=== PATIENT | male | born 1955 | race Caucasian/White ===

== ENCOUNTER → 2020-11-30 16:18 | Outpatient (BNVA) | payer OTHER, SELFPAY | PROVIDERS: PCP Family Medicine; Visit Provider Emergency Medicine | DX: Z20.828 Contact with and (suspected) exposure to other viral communicable diseases (principal) | CPT/HCPCS: 87635 ==

== ENCOUNTER 2021-12-30 18:47 | Emergency (ER) | payer OTHER, MEDICARE, SELFPAY ==
[2021-12-30 18:56] VITALS: BP 164/90; PULSE 83; RESP 16; TEMP 36.8; O2SAT 99; BMI 27.3
--- NOTE | 2021-12-30 19:11 | CTR_ITS ---
PROCEDURE INFORMATION: Exam: CT Head Without Contrast Exam date and time: 12/30/2021 7:11 PM Age: 66 years old Clinical indication: Dizziness; Additional info: Dizzy, gait disturbance TECHNIQUE: Imaging protocol: Computed tomography of the head without contrast. Radiation optimization: All CT scans at this facility use at least one of these dose optimization techniques: automated exposure control; mA and/or kV adjustment per patient size (includes targeted exams where dose is matched to clinical indication); or iterative reconstruction. COMPARISON: No relevant prior studies available. RADIATION DOSE METRICS: Total DLP (mGy-cm): 949.46 FINDINGS: Brain: No hemorrhage. Moderate diffuse cerebral atrophy and sequela of chronic small vessel ischemic disease. No mass effect. Cerebral ventricles: No ventriculomegaly. Paranasal sinuses: Visualized sinuses are unremarkable. No fluid levels. Mastoid air cells: Visualized mastoid air cells are well aerated. Bones/joints: Unremarkable. No acute fracture. Soft tissues: Unremarkable. CT/CT head wo con* [id number] IMPRESSION: No acute intracranial abnormality. Moderate diffuse cerebral atrophy and sequela of chronic small vessel ischemic disease.
[2021-12-30 20:18] LABS: Basophils % 0.5 %; Eosinophils # 0.1 10^3/uL (0.0-0.8); Eosinophils % 0.7 %; Hematocrit 48.7 % (42.0-52.0); Hemoglobin 16.1 g/dL (11.7-16.6); Lymphocytes # 1.4 10^3/uL (0.8-4.8); Lymphocytes % 16.7 %; Mean Corpuscular HGB Conc 33.1 g/dL (30.0-36.0); Mean Corpuscular Hemoglobin 30.5 pg (28.0-34.0); Mean Corpuscular Volume 92.2 fl (80-94); Mean Platelet Volume 9.3 fL (7.4-10.4); Monocytes # 0.9 10^3/uL (0.2-0.9); Neutrophils # 6.06 10^3/uL (1.8-7.7); Neutrophils % 71.4 %; Nucleated Red Blood Cells % 0 %; Platelet Count 205 10^3/cmm (130-400); Red Blood Count 5.28 10^6/uL (4.1-5.3); Red Cell Distribution Width 13.2 % (12.1-15.1); White Blood Count 8.5 10^3/uL (4.0-10.0)
--- NOTE | 2021-12-30 20:36 | W.ED.DIZZY ---
HPI - Dizziness General: Chief Complaint: Dizziness Stated Complaint: Blood Presure High\Staggering Time Seen by Provider: 12/30/21 20:36 History of Present Illness: HPI Narrative: Mr. Saucedo is a 66-year-old gentleman with significant past is a 66-year-old male with history of Crohn's and history of lung cancer status post completed therapy who presents emergency department due to gait disturbance. He endorses 2 to 3 months of noticing difficulty with balance and walking. He finds it difficult to make turns and feels like sometimes he is going to fall backwards if he does not stand leaning a little bit back while walking. He denies associated headache, dizziness, lightheadedness, or focal weakness. He at times notices challenges with speech and challenges making words properly pronounced. Overall since onset symptoms have largely been constant though worsening in intensity. He apparently had an MRI done at [facility] in [place] recently for cancer surveillance however was told that this is normal. He has noticed a tremor. He notices difficulty writing however text is not smaller than normal. No other specific changes in health, exacerbating, relieving factors identified. Onset (ago): month(s) Timing: constant Severity: moderate History of similar symptoms: No Review of Systems General: Reports: 10 or more systems reviewed and unremarkable except in HPI and below PFSH ED PFSH: Medical History History of Crohn's disease History of lung cancer Social History Smoking and tobacco status: former smoker Alcohol intake: never Physical Exam Const: COMMON NORMALS: patient oriented x3 and alert GENERAL APPEARANCE: cooperative and well developed HENMT: COMMON NORMALS: normocephalic and atraumatic HEAD & SCALP: normocephalic and atraumatic THROAT: posterior oropharynx normal Eye: COMMON NORMALS: conjunctivae normal CONJUNCTIVA: Yes conjunctivae normal SCLERA: sclerae normal Neck/C-Spine: COMMON NORMALS: supple GENERAL: Yes trachea midline Resp: COMMON NORMALS: normal respiratory effort EFFORT & INSPECTION: Yes able to speak in complete sentences Cardio: COMMON NORMALS: regular rate and regular rhythm RATE: regular rate RHYTHM: regular rhythm GI: COMMON NORMALS: Soft to palpation PALPATION: Yes Soft to palpation and No Tenderness to palpation present (GI) PERCUSSION: normal to percussion Extremity: GENERAL: Yes normal exam except as noted and No edema Neuro: COMMON NORMALS: patient oriented x3, CN's II-XII intact bilaterally, moves all extremities, no focal motor deficits and no sensory deficits noted SENSORIUM/ORIENTATION: Yes alert and No Orientation impaired OTHER: Patient does have tremor and shuffling turns. Psych: COMMON NORMALS: mental status grossly normal and Normal thought process present THOUGHT PROCESS: Normal thought process present Course ED course: - Patient was seen and evaluated by me at bedside - Patient placed on cardiac monitors, IV access obtained - Initial evaluation notable for exam as above, no focal neurologic deficits. - Labs notable for no acute metabolic or hematologic abnormalities. No evidence of infection. - Imaging notable for no acute finding identified on CT scan. Patient does have moderate diffuse cerebral atrophy and chronic small vessel ischemic disease. - Upon serial reexamination after treatment the patient was similar - Based on patient history, evaluation, labs, and imaging as interpreted the most likely cause of the patient's condition is unclear. Questionable Parkinson's-like movements though not typical for advanced disease. Symptoms predated outpatient MRI which record was obtained from. The interpretation was based on reasoning for MRI which was for cancer surveillance. MRI brain with and without contrast with impression listed is no evidence of intracranial metastatic disease. Findings report moderate chronic small vessel ischemic changes, chronically lacunar infarct within the right lopez radiata, no evidence of hemorrhage or mass or other abnormal enhancement. - Case discussed to ensure short-term follow-up with neurology. - The results of ED evaluation were discussed with the patient including prescriptions and/or symptomatic cares (if applicable) including appropriate and responsible use, followup plan, and return precautions. The patient verbalized understanding and felt safe for discharge. - Patient discharged in satisfactory condition. Note: Click bubbles or prepopulated becerra in note writing are used for assistance with data collection and billing and are inherently more limited than narrative and other text portions of this note. Please use narrative for additional clinical history and defer to narrative/free test for any case of contradictory information. If information appears in only free text or click bubble it should be considered present or absent as reported. Please contact note designer writer for clarifications of clinical information or contradictory information. MDM is a brief summary, contradictory or erroneous seeming information should be clarified and full note should be reviewed. Vital Signs: Vital signs: Vital Signs Temperature 98.2 F 12/30/21 18:56 Pulse Rate 83 12/30/21 18:56 Respiratory Rate 16 12/30/21 18:56 Blood Pressure 164/90 12/30/21 18:56 Pulse Oximetry 99 12/30/21 18:56 MDM - Dizziness Medical Decision Making 66-year-old gentleman presenting with balance instability for a number of months. Patient had outpatient MRI previously and symptoms predated this without acute finding. ED evaluation negative for acute obvious cause. Patient to be referred for neurology evaluation. Satisfactory for outpatient management. Medical Records I reviewed the patient's medical records. Lab Data I reviewed the patient's lab results. : 12/30/21 20:14 12/30/21 20:[address] 12/30/21 19:11 IMPRESSION: No acute intracranial abnormality. Moderate diffuse cerebral atrophy and sequela of chronic small vessel ischemic disease. Laboratory Results WBC 8.5 10^3/uL (4.0-10.0) 12/30/21 20:14 RBC 5.28 10^6/uL (4.1-5.3) 12/30/21 20:14 Hgb 16.1 g/dL (11.7-16.6) 12/30/21 20:14 Hct 48.7 % (42.0-52.0) 12/30/21 20:14 MCV 92.2 fl (80-94) 12/30/21 20:14 MCH 30.5 pg (28.0-34.0) 12/30/21 20:14 MCHC 33.1 g/dL (30.0-36.0) 12/30/21 20:14 RDW 13.2 % (12.1-15.1) 12/30/21 20:14 Plt Count 205 10^3/cmm (130-400) 12/30/21 20:14 MPV 9.3 fL (7.4-10.4) 12/30/21 20:14 Neut % (Auto) 71.4 % 12/30/21 20:14 Lymph % (Auto) 16.7 % 12/30/21 20:14 [place] % (Auto) 10.0 % 12/30/21 20:14 Eos % (Auto) 0.7 % 12/30/21 20:14 Baso % (Auto) 0.5 % 12/30/21 20:14 Neut # (Auto) 6.06 10^3/uL (1.8-7.7) 12/30/21 20:14 Lymph # (Auto) 1.4 10^3/uL (0.8-4.8) 12/30/21 20:14 [place] # (Auto) 0.9 10^3/uL (0.2-0.9) 12/30/21 20:14 Eos # (Auto) 0.1 10^3/uL (0.0-0.8) 12/30/21 20:14 Baso # (Auto) 0.0 10^3/uL (0.0-0.1) 12/30/21 20:14 Nucleated RBC % (auto) 0 % 12/30/21 20:14 Nucleated RBCs # 0.0 /100WBC 12/30/21 20:14 Sodium 140 mmol/L (136-145) 12/30/21 20:14 Potassium 4.2 mmol/L (3.5-5.1) 12/30/21 20:14 Chloride 104 mmol/L (98-107) 12/30/21 20:14 Carbon Dioxide 27 mmol/L (22-29) 12/30/21 20:14 Anion Gap 13.2 (5-19) 12/30/21 20:14 BUN 13 mg/dL (8-23) 12/30/21 20:14 Creatinine 0.9 mg/dL (0.7-1.2) 12/30/21 20:14 GFR Calculation 84.4 mL/min (90-130) L 12/30/21 20:14 Glucose 83 mg/dL (65-115) 12/30/21 20:14 Calculated Osmolality 289 mOsm/kg (285-295) 12/30/21 20:14 Calcium 8.9 mg/dL (8.5-10.5) 12/30/21 20:14 Total Bilirubin 0.3 mg/dL (0.15-1.2) 12/30/21 20:14 AST 12 U/L (0-40) 12/30/21 20:14 ALT 13 U/L (0-41) 12/30/21 20:14 Alkaline Phosphatase 106 IU/L (40-130) 12/30/21 20:14 Total Protein 7.2 g/dL (6.6-8.7) 12/30/21 20:14 Albumin 4.4 g/dL (3.5-5.2) 12/30/21 20:14 Globulin 2.8 g/dL (1.3-4.6) 12/30/21 20:14 Vitamin B12 314 pg/mL (232-1245) 12/30/21 20:15 TSH 0.76 uIU/mL (0.27-4.20) 12/30/21 20:14 Urine Color Yellow (Yellow) 12/30/21 20:46 Urine Appearance Clear (CLEAR) 12/30/21 20:46 Urine pH 5 (5-7) 12/30/21 20:46 Ur Specific [place] 1.020 (1.005-1.030) 12/30/21 20:46 Urine Protein Neg (Negative) 12/30/21 20:46 Urine Glucose (UA) Norm (Normal) 12/30/21 20:46 Urine Ketones Negative (Negative) 12/30/21 20:46 Urine Blood Neg (Negative) 12/30/21 20:46 Urine Nitrate Negative (Negative) 12/30/21 20:46 Urine Bilirubin Neg (Negative) 12/30/21 20:46 Urine Urobilinogen Norm mg/dL (Negative) 12/30/21 20:46 Ur Leukocyte Esterase Negative (Negative) 12/30/21 20:46 RPR Nonreactive (Nonreactive) 12/30/21 20:15 Discharge Plan Discharge Patient Disposition: Home Clinical Impression: Gait instability, Tremor Condition: Stable Prescriptions: No Action lisinopril 5 mg tablet 5 mg PO DAILY 0RF metoprolol tartrate 25 mg tablet 12.5 mg PO BID 0RF Discharge Orders: Discharge ED (Routine); Ordered 12/31/21 Ordered By: Da Romo Referrals: Vincent Fisher [Primary Care Provider] - Discharge Diet: Usual diet Discharge Activity: Resume usual activity Patient Instructions: Fall Prevention (ED), Tremors (ED) Activity Restrictions/Additional Instructions: Thank you for visiting the emergency department. You were seen and evaluated for gait difficulty, speech difficulty, and tremor. The exact cause of your symptoms is unclear though does require further evaluation. I will message our caser in as discussed for neurology follow-up. Please follow-up with your primary care provider. Please return to the emergency department for worsening symptoms, any new focal neurologic symptoms such as arm or leg weakness or sensory changes, or anything else that you are concerned about and feel needs emergency department evaluation. Coding Level of Care Code ED [employer] for Chg Fwd Exam Comprehensive
[2021-12-30 20:37] LABS: Alanine Aminotransferase 13 U/L (0-41); Albumin Level 4.4 g/dL (3.5-5.2); Alkaline Phosphatase 106 IU/L (40-130); Anion Gap 13.2 (5-19); Aspartate Amino Transferase 12 U/L (0-40); Blood Urea Nitrogen 13 mg/dL (8-23); Calcium 8.9 mg/dL (8.5-10.5); Carbon Dioxide 27 mmol/L (22-29); Chloride 104 mmol/L (98-107); Globulin 2.8 g/dL (1.3-4.6); Glomerular Filtration Rate 84.4 mL/min (90-130); Glucose 83 mg/dL (65-115); Osmolality Calculated 289 mOsm/kg (285-295); Potassium 4.2 mmol/L (3.5-5.1); Sodium 140 mmol/L (136-145); Total Bilirubin 0.3 mg/dL (0.15-1.2); Total Protein 7.2 g/dL (6.6-8.7)
[2021-12-30 20:56] LABS: Add Urine Microscopic? NO; Charge for UA Resulting for Rev
[2021-12-30 21:02] LABS: Bilirubin Urine Neg (Negative); Blood Urine Neg (Negative); Glucose Urine UA Norm (Normal); Ketones Urine Negative (Negative); Leukocyte Esterase Urine Negative (Negative); Nitrate Urine Negative (Negative); Protein Urine Neg (Negative); Urine Appearance Clear (CLEAR); Urine Color Yellow (Yellow); Urobilinogen Urine Norm (Negative); pH Urine 5 (5-7)
[2021-12-30 21:09] LABS: Thyroid Stimulating Hormone 0.76 uIU/mL (0.27-4.20)
[2021-12-31 00:58] LABS: Rapid Plasma Reagin Syphilis Nonreactive (Nonreactive)
[2021-12-31 01:15] LABS: Vitamin B12 314 pg/mL (232-1245)
--- NOTE | 2021-12-31 14:11 | DCPLANNER ---
Addendum entered by Chastity Chinchilla 01/16/22 06:50: florist manager sent a message thru workload to confirm if an appointment had been scheduled for patient. Addendum entered by Chastity Chinchilla 12/31/21 14:17: florist manager sent patients information to Kathia with [facility] so that the authorization process could be started. Original Note: florist manager had message to schedule a follow up appointment for patient with Dr. Erickson. florist manager emailed patients information to the neurology group. Patients information will be printed and reviewed. Clinic will call patient with appointment information.
--- NOTE | 2022-01-21 15:37 | DCPLANNER ---
Addendum entered by Chastity Chinchilla 04/06/22 06:09: Patient had a follow up appointment scheduled for 03.25.[address] Erickson - patient did attend appointment. Original Note: Patient has a follow up appointment scheduled for Friday, March 25, 2022 at 10:[address] Erickson at neurology. Clinic will notify patient with appointment information.
== END 2021-12-31 00:38 | disposition home or self-care (01) ==
PROVIDERS: Emergency Provider Emergency Medicine; PCP Family Medicine
DX: R26.89 Other abnormalities of gait and mobility (principal); R25.1 Tremor, unspecified; Z86.73 Personal history of transient ischemic attack (TIA), and cerebral infarction without residual deficits; Z85.118 Personal history of other malignant neoplasm of bronchus and lung; Z87.891 Personal history of nicotine dependence
CPT/HCPCS: 70450; 80053; 81003; 82607; 84443; 85025; 86592; 99283

== ENCOUNTER → 2022-03-25 09:27 | Outpatient (BNVA) | payer OTHER, MEDICARE, SELFPAY | PROVIDERS: PCP Family Medicine; Referring Provider Emergency Medicine; Visit Provider Specialist | DX: R26.89 Other abnormalities of gait and mobility (principal); G31.84 Mild cognitive impairment of uncertain or unknown etiology; Z98.890 Other specified postprocedural states | CPT/HCPCS: 82607; 96116; 99204; 99205 ==

== ENCOUNTER 2022-04-27 13:28 | Emergency (ER) | payer OTHER, MEDICARE, SELFPAY ==
[2022-04-27 13:47] VITALS: BP 129/87; RESP 18; TEMP 36.7; O2SAT 98
[2022-04-27 14:15] LABS: Basophils % 0.3 %; Eosinophils # 0.1 10^3/uL (0.0-0.8); Eosinophils % 1.1 %; Hematocrit 43.4 % (42.0-52.0); Hemoglobin 14.6 g/dL (11.7-16.6); Lymphocytes # 1.4 10^3/uL (0.8-4.8); Lymphocytes % 19.7 %; Mean Corpuscular HGB Conc 33.6 g/dL (30.0-36.0); Mean Corpuscular Hemoglobin 30.5 pg (28.0-34.0); Mean Corpuscular Volume 90.6 fl (80-94); Mean Platelet Volume 9.4 fL (7.4-10.4); Monocytes # 0.5 10^3/uL (0.2-0.9); Monocytes % 6.9 %; Neutrophils # 5.17 10^3/uL (1.8-7.7); Neutrophils % 71.2 %; Nucleated Red Blood Cells % 0 %; Platelet Count 196 10^3/cmm (130-400); Red Blood Count 4.79 10^6/uL (4.1-5.3); Red Cell Distribution Width 12.8 % (12.1-15.1); White Blood Count 7.3 10^3/uL (4.0-10.0)
[2022-04-27 14:33] LABS: Alanine Aminotransferase 13 U/L (0-41); Alkaline Phosphatase 101 IU/L (40-130); Anion Gap 14.1 (5-19); Aspartate Amino Transferase 12 U/L (0-40); Blood Urea Nitrogen 14 mg/dL (8-23); Calcium 9.2 mg/dL (8.5-10.5); Carbon Dioxide 25 mmol/L (22-29); Chloride 104 mmol/L (98-107); Globulin 2.9 g/dL (1.3-4.6); Glomerular Filtration Rate 84.4 mL/min (90-130); Glucose 140 mg/dL (65-115); Lipase 16 U/L (13-60); Osmolality Calculated 291 mOsm/kg (285-295); Potassium 4.1 mmol/L (3.5-5.1); Sodium 139 mmol/L (136-145); Total Bilirubin 0.4 mg/dL (0.15-1.2); Total Protein 6.9 g/dL (6.6-8.7)
--- NOTE | 2022-04-27 16:26 | CTR_ITS ---
PROCEDURE INFORMATION: Exam: CT Head Without Contrast Exam date and time: 04/27/2022 4:51 PM Age: 66 years old Clinical indication: Dizziness and other: Syncope TECHNIQUE: Imaging protocol: Computed tomography of the head without contrast. Total images: 64 Radiation optimization: All CT scans at this facility use at least one of these dose optimization techniques: automated exposure control; mA and/or kV adjustment per patient size (includes targeted exams where dose is matched to clinical indication); or iterative reconstruction. COMPARISON: CT head wo con* [id number] 12/30/2021 9:02 PM RADIATION DOSE METRICS: Total DLP (mGy-cm): 1133.98 FINDINGS: Brain: Global brain atrophy and chronic white matter ischemic changes are present. Cerebral ventricles: Ventricles are appropriate in size for degree of atrophy. Paranasal sinuses: Visualized sinuses are unremarkable. No fluid levels. Mastoid air cells: Visualized mastoid air cells are well aerated. Bones/joints: Unremarkable. No acute fracture. Soft tissues: Unremarkable. CT/CT head wo con* [id number] IMPRESSION: No acute intracranial abnormality.
--- NOTE | 2022-04-27 16:26 | ECG_ITS ---
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 Measurements Intervals [place] Rate: 64 P: 58 NE: 157 QRS: 55 QRSD: 90 T: 66 QT: 401 QTc: 414 Interpretive Statements SINUS RHYTHM No previous ECG available for comparison Electronically Signed On 04-27-2022 23:34:52 CDT by Henrique Anderson M.D. [id number]
--- NOTE | 2022-04-27 17:08 | W.ED.GENADLT ---
HPI - General Adult General: Chief complaint: Syncope Stated complaint: Confusion, dizzy Time Seen by Provider: 04/27/22 16:42 History of Present Illness: Patient is a 66-year-old male with a history of Crohn's disease, prior lung cancer previously on chemoradiation treatment presenting to the emergency room with complaints of lightheadedness since 400 this morning. Patient tells me that he had an episode of syncope a few month ago ever since then, he has not been feeling well. Since this morning, around 4 AM, patient reports significant lightheadedness but denies any LOC focal weakness in the arms or legs, diplopia, language comprehension/speech difficulty, slurring of words, facial droop or gait instability. Patient reports feeling lightheaded upon standing and walking. Denies nauesea/vomiting, fever/chill, chest pain, shortness of breath, abdominal pain, dysuria/hematuria/polyuria, diarrhea/melena/hematochezia. Onset:4am Duration:ongoing Location:home Severity:moderate Associated symptoms: Reports malaise; Deny chest pain, dyspnea, nausea, rash, palpitations or vomiting Review of Systems Const: Reports: fatigue, malaise and other (+generalized weakness); Denies: fever(s) or chills Eyes: Denies: change in vision ENMT: Denies: mouth pain Card: Denies: chest pain or palpitations Resp: Denies: dyspnea or non-productive cough GI: Denies: abdominal pain, nausea, vomiting or diarrhea : Denies: dysuria Musc: Denies: extremity pain Skin/Breast: Denies: rash or new lesions Neuro: Denies: weakness in extremities Psych: Reports: other (Normal mood) Siddharth/Lymph: Denies: easy bruising PFSH ED PFSH: Medical History History of Crohn's disease History of lung cancer Social History Smoking and tobacco status: never smoked Alcohol intake: never Physical Exam Const: COMMON NORMALS: alert HENMT: COMMON NORMALS: atraumatic HEAD & SCALP: atraumatic MOUTH: moist mucous membranes not abnormal Eye: COMMON NORMALS: EOMs intact bilaterally and conjunctivae normal CONJUNCTIVA: Yes conjunctivae normal Neck/C-Spine: COMMON NORMALS: full ROM and supple Resp: COMMON NORMALS: normal respiratory effort and clear to auscultation bilaterally AUSCULTATION: clear to auscultation bilaterally Cardio: COMMON NORMALS: regular rate RATE: regular rate GI: COMMON NORMALS: Soft to palpation and non-tender PALPATION: Yes Soft to palpation Extremity: COMMON NORMALS: full ROM Neuro: SENSORIUM/ORIENTATION: Yes alert MOTOR EXAM: No Abnormal motor strength present and Other motor observations present (no focal motor deficits) OTHER: Mental status? Awake, alert, and oriented to self, year, month, location, and situation.? Following simple axial and appendicular commands.? Has appropriate fund of knowledge, comprehension, and insight.? Able to recall and understands pertinent aspects of medical history and current treatment status.? ? Language? Speech is fluent without word-finding difficulties.? Intact naming, expression, nurse behavioral health care, and repetition.? ? Cranial nerves? 2,3,4,6: PERRL, EOMI with no nystagmus. 5: Intact sensation to light touch, symmetric? 7: Smile symmetrical, no facial droop.? 8: Hearing grossly intact.? 9,10: Normal palate movement.? 11: Normal strength in trapezius bilaterally 12: Tongue protrudes midline.? ? Motor examination? Normal bulk & tone. Strength as follows (R/L): Delts (5/5), Biceps (5/5), Triceps (5/5), Wrist ext (5/5), hip flexors (5/5), plantarflexors (5/5), dorsiflexors (5/5). Sensation? Light Touch: Grossly intact and equal in upper and lower extremities bilaterally? Romberg: Negative.? Distal joint position sense intact ? Coordination? Svsugi-qu-ymhg-finger movements intact without dysmetria or past-pointing.? Rapid fingertaps: preserved amplitude without decriment.? No tremor, myoclonus or truncal ataxia.? ? Gait/stance? Steady, normal narrow base gait with appropriate arm swing and turning.? Tandem gait without hesitation or loss of balance. Psych: COMMON NORMALS: speech normal SPEECH: Yes normal speech MOOD & AFFECT: Yes euthymic mood Course Vital Signs: Vital signs: Vital Signs Temperature 98.0 F 04/27/22 13:47 Respiratory Rate 18 04/27/22 13:47 Blood Pressure 129/87 04/27/22 13:47 Pulse Oximetry 98 04/27/22 13:47 MDM - General Adult Medical Decision Making 66-year-old male presents emergency room with shortness of confusion and lightheadedness since 4 AM this morning. Patient denies any syncope. Neurological exam is intact. Patient is able to ambulate without any difficulty. Troponin x2 with delta less than 5. EKG is nonischemic. CT head negative for any acute finding. Patient received 1 L of PPF reports lightheadedness significantly improved. On reassessment, patient denies any syncope or near syncope episodes in the ER. Telemetry without any dysrhythmia. Patient has been able to tolerate PO and ambulate in the ER without issues. Delta troponin <4. I performed shared decision-making with patient regarding admission versus discharge today, and patient prefers to be discharged. I have discussed given patient's risk factors that she would better off admitted to the hospital. However, this patient has shorts to attend to and has an MRI scheduled outpatient for Thursday,, patient would like to go home and spentd time with her family. Upon hearing this, patient elects to go home. I explained the risks of leaving the hospital today including lethal arrythemia, ID, strokens and even . Patient verbalizes understanding of these discussed risk and elect for the alternative of following up earlier next week for evaluation by Cardiology. Patient verbalizes understanding to return for any worsening symptoms including chest pain, dyspnea, fatigue, arm pain/jaw pain/back pain or any new or concerning issues. Patient is currently HDS, ambulated without any diffiuclities I have given patient follow up with our case management coordinator to be seen by our outpatient Cardiology for light-headedness. Patient aware of a call from our case management coordinator to schedule for appointment(s) and verbalizes understanding of the importance of following up. Disposition: Discharge. Patient counseled regarding diagnostic impression, treatment plan. Patient given ED strict return precautions to return for continuation, worsening, or development of new symptoms. Instructed to f/u w/ Neurology/Cardiology/PCP regarding symptoms today. Patient verbalized understanding. Lab Data : 04/27/22 13:58 04/27/22 13:[address] 04/27/22 16:26 IMPRESSION: No acute intracranial abnormality. Laboratory Results WBC 7.3 10^3/uL (4.0-10.0) 04/27/22 13:58 RBC 4.79 10^6/uL (4.1-5.3) 04/27/22 13:58 Hgb 14.6 g/dL (11.7-16.6) 04/27/22 13:58 Hct 43.4 % (42.0-52.0) 04/27/22 13:58 MCV 90.6 fl (80-94) 04/27/22 13:58 MCH 30.5 pg (28.0-34.0) 04/27/22 13:58 MCHC 33.6 g/dL (30.0-36.0) 04/27/22 13:58 RDW 12.8 % (12.1-15.1) 04/27/22 13:58 Plt Count 196 10^3/cmm (130-400) 04/27/22 13:58 MPV 9.4 fL (7.4-10.4) 04/27/22 13:58 Neut % (Auto) 71.2 % 04/27/22 13:58 Lymph % (Auto) 19.7 % 04/27/22 13:58 [place] % (Auto) 6.9 % 04/27/22 13:58 Eos % (Auto) 1.1 % 04/27/22 13:58 Baso % (Auto) 0.3 % 04/27/22 13:58 Neut # (Auto) 5.17 10^3/uL (1.8-7.7) 04/27/22 13:58 Lymph # (Auto) 1.4 10^3/uL (0.8-4.8) 04/27/22 13:58 [place] # (Auto) 0.5 10^3/uL (0.2-0.9) 04/27/22 13:58 Eos # (Auto) 0.1 10^3/uL (0.0-0.8) 04/27/22 13:58 Baso # (Auto) 0.0 10^3/uL (0.0-0.1) 04/27/22 13:58 Nucleated RBC % (auto) 0 % 04/27/22 13:58 Nucleated RBCs # 0.0 /100WBC 04/27/22 13:58 Sodium 139 mmol/L (136-145) 04/27/22 13:58 Potassium 4.1 mmol/L (3.5-5.1) 04/27/22 13:58 Chloride 104 mmol/L (98-107) 04/27/22 13:58 Carbon Dioxide 25 mmol/L (22-29) 04/27/22 13:58 Anion Gap 14.1 (5-19) 04/27/22 13:58 BUN 14 mg/dL (8-23) 04/27/22 13:58 Creatinine 0.9 mg/dL (0.7-1.2) 04/27/22 13:58 GFR Calculation 84.4 mL/min (90-130) L 04/27/22 13:58 Glucose 140 mg/dL (65-115) H 04/27/22 13:58 Calculated Osmolality 291 mOsm/kg (285-295) 04/27/22 13:58 Calcium 9.2 mg/dL (8.5-10.5) 04/27/22 13:58 Total Bilirubin 0.4 mg/dL (0.15-1.2) 04/27/22 13:58 AST 12 U/L (0-40) 04/27/22 13:58 ALT 13 U/L (0-41) 04/27/22 13:58 Alkaline Phosphatase 101 IU/L (40-130) 04/27/22 13:58 Troponin T Baseline 8 ng/L (0-15) 04/27/22 17:10 Troponin T 120 Minute 7.24 ng/L (0-15) 04/27/22 19:26 Delta Troponin T -0.76 ABS# (0-10) L 04/27/22 19:26 Total Protein 6.9 g/dL (6.6-8.7) 04/27/22 13:58 Albumin 4.0 g/dL (3.5-5.2) 04/27/22 13:58 Globulin 2.9 g/dL (1.3-4.6) 04/27/22 13:58 Lipase 16 U/L (13-60) 04/27/22 13:58 Imaging Data Other Imaging: Radiologist's impression: [address] [address] [address] Scan Report Signed Patient: Pablo Saucedo Unit #: [id number] : 1955 Age/Sex: 66 / M ADM Date: 04/27/22 Loc: ER Room/Bed: Attending Dr: Ordering Provider/Ordering MD: Telma Rosas MD Date of Service: 04/27/22 Procedure(s): CT head wo con* [id number] Accession Number(s): [id number] Report Number: [id number] PROCEDURE INFORMATION: Exam: CT Head Without Contrast Exam date and time: 04/27/2022 4:51 PM Age: 66 years old Clinical indication: Dizziness and other: Syncope TECHNIQUE: Imaging protocol: Computed tomography of the head without contrast. Total images: 64 Radiation optimization: All CT scans at this facility use at least one of these dose optimization techniques: automated exposure control; mA and/or kV adjustment per patient size (includes targeted exams where dose is matched to clinical indication); or iterative reconstruction. COMPARISON: CT head wo con* [id number] 12/30/2021 9:02 PM RADIATION DOSE METRICS: Total DLP (mGy-cm): 1133.98 FINDINGS: Brain: Global brain atrophy and chronic white matter ischemic changes are present. Cerebral ventricles: Ventricles are appropriate in size for degree of atrophy. Paranasal sinuses: Visualized sinuses are unremarkable. No fluid levels. Mastoid air cells: Visualized mastoid air cells are well aerated. Bones/joints: Unremarkable. No acute fracture. Soft tissues: Unremarkable. CT/CT head wo con* [id number] IMPRESSION: No acute intracranial abnormality. ? Dictated By: Elia Jarvis MD Signed By: Elia Jarvis MD Signed Date/Time: 04/27/221742 DD/ 165 Discharge Plan Discharge Patient Disposition: Home Clinical Impression: Light headedness, Confusion Condition: Stable Prescriptions: No Action metoprolol tartrate 25 mg tablet 25 mg PO BID 0RF amlodipine 5 mg tablet 5 mg PO DAILY 0RF galantamine 4 mg tablet 4 mg PO BID Qty: 60 0RF Rx Instructions: administer with AM and PM meals; watch for nausea alprazolam 1 mg tablet 1 mg PO BEDTIME 0RF hydrocodone-acetaminophen 10-325 mg tablet 1 tab PO TID PRN (Reason: Pain) 0RF albuterol sulfate 90 mcg/actuation Hfa Aerosol Inhaler 2 puff INHALATION Q6H PRN (Reason: Shortness Of Breath) 0RF bupropion HCl 300 mg Tablet Extended Release 24 Hr 300 mg PO QAM 0RF Spiriva with HandiHaler 18 mcg Capsule, W/Inhalation Device 1 cap INHALATION DAILY 0RF Rx Instructions: puncture 1 cap using device; one dose = 2 inhalations Discharge Orders: Discharge ED (Routine); Ordered 04/27/22 Ordered By: Doc Gama Referrals: Vincent Fisher [Primary Care Provider] - Discharge Diet: Advance as tolerated Discharge Activity: Increase activity as tolerated Patient Instructions: Near Syncope (ED) Activity Restrictions/Additional Instructions: Please come back to the emergency room for any more breakthrough episodes of passing out. Come back if any weakness in her arms, drooling, difficulty speaking, any neurological symptoms, chest pain/shortness of breath/palpitation or any new or concerning issues. Please do not swim, bathe, operate heavy machinery or drive a vehicle unattended. Our case management coordinator will have you follow-up with Cardiology in the next few days. You would be expected to have a phone call with our case management coordinator who will put you on the schedule. You can expect a call from us in the next 2-3 days. If you don't hear from us, call us back in the emergency room at [phone]. Coding Level of Care Code ED [employer]electric [employer] Technician for Paige Phipps Exam Comprehensive
[2022-04-27 18:27] LABS: Troponin(5th) Baseline 8 ng/L (0-15)
[2022-04-27] MEDS: sodium chloride 0.9% 1,000 ML 999 ML IV (19:48)
[2022-04-27 19:49] LABS: Troponin 5 2HR 7.24 ng/L (0-15)
[2022-04-27 19:54] LABS: Troponin 5 2HR Delta -0.76 ABS# (0-10)
--- NOTE | 2022-04-29 13:39 | DCPLANNER ---
Addendum entered by Chastity Chinchilla 07/04/22 11:56: Patients appointment was cancelled Addendum entered by Chastity Chinchilla 05/12/22 17:46: Patient has a follow up appointment scheduled for Saturday, June 25, 2022 at 1:[address] Briggs at [facility]. Clinic will notify patient with appointment information. Addendum entered by Chastity Chinchilla 04/29/22 13:41: Patient has [employer] insurance, correctional case manager sent patients information to Kathia with [employer] [facility] for the authorization process to be started. Original Note: artist and repertoire manager had message to schedule a follow up appointment for patient with cardiology. artist and repertoire manager sent patients information to the front office staff at [facility]. Patients information will be printed and reviewed. Clinic will call patient with appointment information.
== END 2022-04-27 20:47 | disposition home or self-care (01) ==
PROVIDERS: Emergency Provider Emergency Medicine; PCP Family Medicine
DX: R41.0 Disorientation, unspecified (principal); R42 Dizziness and giddiness; Z85.118 Personal history of other malignant neoplasm of bronchus and lung
CPT/HCPCS: 70450; 80053; 83690; 84484; 85025; 93005; 96360; 99285; J7030

== ENCOUNTER 2022-05-02 06:52 | Outpatient (CLI) | payer OTHER, SELFPAY ==
--- NOTE | 2022-05-02 07:00 | MR_ITS ---
WS: [id number] MRA CAROTID WITHOUT GADOLINIUM ENHANCEMENT TECHNIQUE: Axial 2-D TOF and 3-D [id number]-gq-[id number] obtained with axial images and axial, sagittal, and c oronal 2-D reformatted images. CLINICAL INFORMATION: Z98.890 - Other specified postprocedural states COMPARISON: None. FINDINGS: LEFT dominant vertebral artery. RIGHT vertebral artery is patent. RIGHT: RIGHT common carotid artery is patent. No significant RIGHT ICA stenosis. RIGHT ICA is patent to the skull base. LEFT: LEFT common carotid artery is patent. No significant LEFT ICA stenosis. LEFT ICA is patent to t he skull base. MR/MR angio neck wo con [id number] IMPRESSION: 1. No significant ICA stenosis bilaterally. Both ICAs are patent to the skull base. 2. LEFT dominant vertebral artery. RIGHT vertebral artery is patent. 3. No other significant findings.
--- NOTE | 2022-05-02 08:00 | MR_ITS ---
WS: [id number] MRA HEAD TECHNIQUE: Axial 3-D TOF images obtained with axial images and axial, sagittal, and coronal 2-D refor matted images. CLINICAL INFORMATION: G31.84 - Mild cognitive impairment, so stated COMPARISON: None. FINDINGS: Mild segmental proximal intracranial atheromatous disease.No evidence of high-grade proximal flow gilbert iting stenosis. Small posterior superior projecting RIGHT distal M1 segment aneurysm measuring 3.8 mm Distal vertebral arteries are patent. Basilar artery is patent. Normal vascularity to the [employer] territo ry bilaterally. Both ICAs are patent at the skull base. Cavernous carotid arteries are patent. Normal vascularity to the RUTH and MCA territories bilaterally. MR/MR angio head wo con [id number] IMPRESSION: 1. No evidence of flow-limiting stenosis. 2. 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 Mild proximal segmental intracranial atheromatous disease.
--- NOTE | 2022-05-02 08:45 | MR_ITS ---
WS: [id number] MRI HEAD WITHOUT CONTRAST TECHNIQUE: Sagittal T1, T2 axial, T2 axial FLAIR, axial and coronal T1 images, axial susceptibility w eighted imaging, axial diffusion weighted images, and coronal T2 images were obtained. CLINICAL INFORMATION: G31.84 - Mild cognitive impairment, so stated COMPARISON: CT April 27, 2022 FINDINGS: No evidence of restricted diffusion to suggest acute ischemia. Ventricular system and basal cisterns are patent. Moderate small vessel changes. Moderate parenchymal volume loss. Normal posterior fossa. Normal vascular flow voids at the skull base. No extra-axial fluid collections. No evidence of mass o r mass effect. Prominent perivascular spaces in the basal ganglia. Tiny chronic lacunar infarct in th e LEFT thalamus. Tiny chronic lacunar infarct LEFT judie sia and RIGHT lopez radiata. Small vessel c hanges in the sia. Visualized orbits are normal. Normal optic chiasm and pituitary infundibulum. Normal cavernous sinuses and Meckel's cave. Moderate symmetric atrophy temporal lobes and hippocampal formations. No hemosiderin on susceptibly weighted i mages. Visualized proximal 7th and 8th cranial nerves appear normal. MR/MR head wo con* [id number] IMPRESSION: 1. No evidence of restricted diffusion to suggest acute ischemia. 2. Moderate small vessel changes with moderate parenchymal volume loss. 3. Chronic lacunar infarcts in the RIGHT lopez radiata, LEFT anterior thalamu s, and LEFT judie-sia. 4. No hemosiderin on the susceptibility weighted images. 5. Normal optic chiasm and pituitary infundibulum. 6. Moderate symmetric atrophy temporal lobes and hippocampal formations.
== END 2022-05-02 06:53 | disposition home or self-care (01) ==
PROVIDERS: PCP Family Medicine; Visit Provider Specialist
DX: G31.84 Mild cognitive impairment of uncertain or unknown etiology (principal); Z98.890 Other specified postprocedural states
CPT/HCPCS: 70544; 70547; 70551

== ENCOUNTER → 2022-05-21 13:58 | Outpatient (BNVA) | payer OTHER, SELFPAY | PROVIDERS: PCP Family Medicine; Referring Provider Family Medicine; Visit Provider Specialist | DX: G30.9 Alzheimer's disease, unspecified (principal); F02.80 Dementia in other diseases classified elsewhere, unspecified severity, without behavioral disturbance, psychotic disturbance, mood disturbance, and anxiety; R42 Dizziness and giddiness; I67.1 Cerebral aneurysm, nonruptured; R26.89 Other abnormalities of gait and mobility | CPT/HCPCS: 99215 ==

== ENCOUNTER → 2022-09-29 11:26 | Outpatient (BNVA) | payer OTHER, SELFPAY | PROVIDERS: PCP Family Medicine; Visit Provider Specialist | DX: R41.3 Other amnesia (principal); G47.10 Hypersomnia, unspecified; I67.1 Cerebral aneurysm, nonruptured | CPT/HCPCS: 99214 ==

== ENCOUNTER 2022-10-14 06:57 | Outpatient (CLI) | payer OTHER, SELFPAY | END 2022-10-14 06:58 | disposition home or self-care (01) | LOC: SLEEP 10-15 06:58 | PROVIDERS: PCP Family Medicine; Visit Provider Family Medicine | DX: G47.33 Obstructive sleep apnea (adult) (pediatric) (principal) | CPT/HCPCS: 95811 ==

== ENCOUNTER 2022-10-29 10:50 | Observation (INO) | payer OTHER, SELFPAY ==
[2022-10-29] VITALS (7 sets, daily range): BP systolic 128–142; BP diastolic 80–85; PULSE 82–95; RESP 16–18; TEMP 36.8–36.9; O2SAT 96–99; BMI 27.9
--- NOTE | 2022-10-29 11:27 | XRR_ITS ---
PROCEDURE INFORMATION: Exam: XR Left Elbow Exam date and time: 10/29/2022 11:33 AM Age: 67 years old Clinical indication: Pain; Elbow; Left; Additional info: Elbow pain and swelling TECHNIQUE: Imaging protocol: Radiologic exam of the Left elbow. Views: 3 or more views. COMPARISON: No relevant prior studies available. FINDINGS: Bones/joints: No fracture, dislocation or other significant bony abnormality. Soft tissues: There is soft tissue swelling around the elbow. XR/XR elbow LT min 3V* [id number] IMPRESSION: Soft tissue swelling. No acute bony abnormality.
--- NOTE | 2022-10-29 11:53 | ED_ITS ---
Documented by User: BART Magana 10/30/22 12:39 HPI - Extremity Problem General: Chief complaint: Extremity Problem,Nontraumatic Stated complaint: left elbow pain Time Seen by Provider: 10/29/22 11:20 History of Present Illness: Patient is a 67-year-old male comes to the ED with left elbow pain. Symptoms started approximately 4 days ago and they have progressed gotten worse. Pain is located all throughout his left elbow and it is swollen. When at rest and not moving left arm his pain is 2 out of 10. Any flexion of left elbow because severe sharp pain. Denies any injury or trauma to cause symptoms. Denies any history of gout. He saw his PCP today and they recommended he come to the ED for further evaluation. Patient has hydrocodone that he takes at home and took a dose this morning. Denies any IV drug use. Associated symptoms: Deny chest pain, fever(s) or rash Review of Systems Const: Denies: fever(s), chills or fatigue Eyes: Denies: change in vision or eye discomfort ENMT: Denies: throat pain, odynophagia, nasal discharge or nasal congestion Card: Denies: chest pain, palpitations, edema, swelling of feet/ankles, dyspnea on exertion or orthopnea Resp: Denies: dyspnea, productive cough or non-productive cough GI: Denies: abdominal pain, nausea, vomiting, diarrhea, constipation or hematochezia : Denies: flank pain, difficulty urinating, dysuria or hematuria Musc: Reports: extremity pain (Left elbow), extremity swelling (Left elbow) and limited range of motion (Flexion of left elbow due to pain); Denies: neck pain or back pain Skin/Breast: Denies: rash or new lesions Neuro: Denies: headache(s), numbness in extremities or weakness in extremities PFSH ED PFSH: Medical History History of Crohn's disease History of lung cancer Surgical History History of back surgery 2013 History of colon resection x2 Family History (Updated 10/29/22 @ 20:12 by Jose Ferraro MD) Brother CAD (coronary artery disease) Social History Smoking and tobacco status: never smoked Alcohol intake: never Physical Exam Const: COMMON NORMALS: patient oriented x3 and alert GENERAL APPEARANCE: cooperative HENMT: COMMON NORMALS: normocephalic HEAD & SCALP: normocephalic MOUTH: Normal oral and palatal mucosa present THROAT: posterior oropharynx normal and uvula midline Neck/C-Spine: COMMON NORMALS: supple GENERAL: Yes normal visual inspection Resp: COMMON NORMALS: normal respiratory effort, No retractions, No use of accessory muscles and clear to auscultation bilaterally AUSCULTATION: clear to auscultation bilaterally Cardio: COMMON NORMALS: regular rate, regular rhythm, S1 normal heart sound present, S2 normal heart sound present, No gallops present (Cardio), No clicks present (Cardio), No murmurs present (Cardio) and Peripheral pulses 2+ throughout RATE: regular rate RHYTHM: regular rhythm HEART SOUNDS: S1 normal heart sound present and S2 normal heart sound present PERIPHERAL PULSES: Peripheral pulses 2+ throughout GI: COMMON NORMALS: Normal to inspection, nondistended, normoactive bowel sounds present, Soft to palpation, non-tender and no masses PALPATION: Yes Soft to palpation : COMMON NORMALS: Yes no CVA tenderness BLADDER/KIDNEY EXAM: Yes no CVA tenderness Back/Pelvis: COMMON NORMALS: no CVA tenderness Extremity: NARRATIVE EXTREMITY EXAM: Left elbow?warm to the touch, swollen and mildly red. Limited range of motion especially flexion less than 90 degrees of elbow due to pain. Neurovascular tact distally. No red streaking seen on arm. Joint does not appear septic. No palpable abscess upon exam. Neuro: COMMON NORMALS: patient oriented x3 SENSORIUM/ORIENTATION: Yes alert GAIT: Yes Normal gait present Skin: GENERAL SKIN EXAM: dry skin Course Vital Signs: Vital signs: Vital Signs Temperature 98.5 F 10/31/22 08:00 Pulse Rate 99 10/31/22 11:37 Respiratory Rate 16 10/31/22 09:00 Blood Pressure 135/64 10/31/22 08:00 Pulse Oximetry 98 10/31/22 09:00 Oxygen Delivery Me thod 10/31/22 09:00 MDM - Extremity (Nontraumatic) Medical Decision Making Patient is a 67-year-old male comes to the ED with left elbow pain and swelling. Denies any injury or trauma to cause pain. Primary care doctor sent him here to the ED for further evaluation. Left elbow?warm to the touch, swollen and mildly red. Limited range of motion especially flexion less than 90 degrees of elbow due to pain. Neurovascular tact distally. No red streaking seen on arm. Joint does not appear septic. No palpable abscess upon exam. Vitals are stable. CRP of 40.8 and the rest of CBC and CMP were unremarkable. X-ray of left elbow showed no acute findings. Ultrasound of left arm showed complex fluid collection likely abscess at dorsal aspect of elbow. I contacted Dr. Myers and told him about patient case and exam findings along with ultrasound showing an abscess on the dorsal aspect of elbow. He recommends getting a CT of the left arm to better visualize where abscess is located then to contact him and let him know CT report and he will make a decision on further care. Lab Data I reviewed the patient's lab results. 10/29/22 11:44 10/29/22 11:44 Radiology Impressions Elbow X-Ray 10/29/22 11:27 IMPRESSION: Soft tissue swelling. No acute bony abnormality. Soft Tissue Ultrasound 10/29/22 12:39 IMPRESSION: Diffuse subcutaneous edema with complex fluid collection along the dorsal elbow measuring 1.7 x 1.7 x 0.6 cm suspicious for abscess. Recommend correlation for infection. Upper Extremity CTA 10/29/22 16:42 IMPRESSION: 1. Soft tissue swelling over the posteromedial forearm with extension to the dorsal aspect of the elbow most consistent with severe severe cellulitis without obvious abscess. 2. No obvious soft tissue emphysema or osteomyelitis. 3. Some component of olecranon bursitis can not be ruled out, however the dominant area of radiographic inflammation is the proximal forearm and not the elbow. Laboratory Results WBC 5.2 10^3/uL (4.0-10.0) 10/29/22 11:44 RBC 4.70 10^6/uL (4.1-5.3) 10/29/22 11:44 Hgb 14.3 g/dL (11.7-16.6) 10/29/22 11:44 Hct 45.0 % (42.0-52.0) 10/29/22 11:44 MCV 95.7 fl (80-94) H 10/29/22 11:44 MCH 30.4 pg (28.0-34.0) 10/29/22 11:44 MCHC 31.8 g/dL (30.0-36.0) 10/29/22 11:44 RDW 14.6 % (12.1-15.1) 10/29/22 11:44 Plt Count 164 10^3/cmm (130-400) 10/29/22 11:44 MPV 9.2 fL (7.4-10.4) 10/29/22 11:44 Neut % (Auto) 65.3 % 10/29/22 11:44 Lymph % (Auto) 23.4 % 10/29/22 11:44 [place] % (Auto) 8.8 % 10/29/22 11:44 Eos % (Auto) 1.5 % 10/29/22 11:44 Baso % (Auto) 0.6 % 10/29/22 11:44 Neut # (Auto) 3.40 10^3/uL (1.8-7.7) 10/29/22 11:44 Lymph # (Auto) 1.2 10^3/uL (0.8-4.8) 10/29/22 11:44 [place] # (Auto) 0.5 10^3/uL (0.2-0.9) 10/29/22 11:44 Eos # (Auto) 0.1 10^3/uL (0.0-0.8) 10/29/22 11:44 Baso # (Auto) 0.0 10^3/uL (0.0-0.1) 10/29/22 11:44 Nucleated RBC % (auto) 0 % 10/29/22 11:44 Nucleated RBCs # 0.0 /100WBC 10/29/22 11:44 Sodium 137 mmol/L (136-145) 10/29/22 11:44 Potassium 4.2 mmol/L (3.5-5.1) 10/29/22 11:44 Chloride 99 mmol/L (98-107) 10/29/22 11:44 Carbon Dioxide 30 mmol/L (22-29) H 10/29/22 11:44 Anion Gap 12.2 (5-19) 10/29/22 11:44 BUN 11 mg/dL (8-23) 10/29/22 11:44 Creatinine 0.8 mg/dL (0.7-1.2) 10/29/22 11:44 GFR Calculation 96.4 mL/min (90-130) 10/29/22 11:44 Glucose 124 mg/dL (65-115) H 10/29/22 11:44 Calculated Osmolality 285 mOsm/kg (285-295) 10/29/22 11:44 Calcium 8.9 mg/dL (8.5-10.5) 10/29/22 11:44 Total Bilirubin 0.8 mg/dL (0.15-1.2) 10/29/22 11:44 AST 114 U/L (0-40) H 10/29/22 11:44 ALT 119 U/L (0-41) H 10/29/22 11:44 Alkaline Phosphatase 198 U/L (40-130) H 10/29/22 11:44 C-Reactive Protein 40.8 mg/L (0.0-4.9) H 10/29/22 11:44 Total Protein 7.1 g/dL (6.6-8.7) 10/29/22 11:44 Albumin 3.9 g/dL (3.5-5.2) 10/29/22 11:44 Globulin 3.2 g/dL (1.3-4.6) 10/29/22 11:44 Discharge Plan Discharge Patient Disposition: Placed in Observation Admit Provider: Jose Ferraro Clinical Impression: Cellulitis of left elbow Discharge Diet: Cardiac Sign Out Sign Out Data: Patient Sign Out occurred on 10/29/22 at 17:23. Patient's care was discussed, and care was transferred from to BART Burger. Coding Level of Care Code ED Meteorology Instructor for Chg Fwd Exam Comprehensive Documented by User: BART Burger 10/29/22 20:07 HPI - Extremity Problem General: Chief complaint: Extremity Problem,Nontraumatic Stated complaint: left elbow pain Time Seen by Provider: 10/29/22 11:20 PFSH ED PFSH: Medical History History of Crohn's disease History of lung cancer Surgical History History of back surgery 2013 History of colon resection x2 Family History (Updated 10/29/22 @ 20:12 by Jose Ferraro MD) Brother CAD (coronary artery disease) Social History Smoking and tobacco status: never smoked Alcohol intake: never Course Consultations: Consultation #1: Dr. Ferraro-will admit to obs for IV abx, would like Dr. Myers to come see the patient and assess for possibility of septic joint Consultation #2: Dr. Myers-graciously came and evaluated patient in the emergency department-does not feel there is a septic joint at this time and agrees with plan for admission to hospitalist for IV abx, ice, elevation, compression sleeve Vital Signs: Vital signs: Vital Signs Temperature 98.5 F 10/31/22 08:00 Pulse Rate 99 10/31/22 11:37 Respiratory Rate 16 10/31/22 09:00 Blood Pressure 135/64 10/31/22 08:00 Pulse Oximetry 98 10/31/22 09:00 Oxygen Delivery Me thod 10/31/22 09:00 MDM - Extremity (Nontraumatic) Medical Decision Making Patient is a 67-year-old male comes to the ED with left elbow pain and swelling. Denies any injury or trauma to cause pain. Primary care doctor sent him here to the ED for further evaluation. Left elbow?warm to the touch, swollen and mildly red. Limited range of motion especially flexion less than 90 degrees of elbow due to pain. Neurovascular tact distally. No red streaking seen on arm. Joint does not appear septic. No palpable abscess upon exam. Vitals are stable. CRP of 40.8 and the rest of CBC and CMP were unremarkable. X-ray of left elbow showed no acute findings. Ultrasound of left arm showed complex fluid collection likely abscess at dorsal aspect of elbow. I contacted Dr. Myers and told him about patient case and exam findings along with ultrasound showing an abscess on the dorsal aspect of elbow. He recommends getting a CT of the left arm to better visualize where abscess is located then to contact him and let him know CT report and he will make a decision on further care. Care was assumed from Juancarlos Myers PA-C. Patient has fairly significant redness, warmth, and tenderness to the medial aspect of his left elbow. He does have some limited range of motion but normal micromotion and my suspicion for septic joint based on clinical exam was very low. I spoke to hospitalist Dr. Ferraro requested that orthopedics see patient to evaluate the possibility of a septic joint. Dr. Myers graciously saw patient in the ED does not feel this is the case. Dr. Ferraro was amendable to obs admit for IV antibiotics. Dr. Romo will write admit orders. Lab Data 10/29/22 11:44 10/29/22 11:44 Radiology Impressions Elbow X-Ray 10/29/22 11:27 IMPRESSION: Soft tissue swelling. No acute bony abnormality. Soft Tissue Ultrasound 10/29/22 12:39 IMPRESSION: Diffuse subcutaneous edema with complex fluid collection along the dorsal elbow measuring 1.7 x 1.7 x 0.6 cm suspicious for abscess. Recommend correlation for infection. Upper Extremity CTA 10/29/22 16:42 IMPRESSION: 1. Soft tissue swelling over the posteromedial forearm with extension to the dorsal aspect of the elbow most consistent with severe severe cellulitis without obvious abscess. 2. No obvious soft tissue emphysema or osteomyelitis. 3. Some component of olecranon bursitis can not be ruled out, however the dominant area of radiographic inflammation is the proximal forearm and not the elbow. Laboratory Results WBC 5.2 10^3/uL (4.0-10.0) 10/29/22 11:44 RBC 4.70 10^6/uL (4.1-5.3) 10/29/22 11:44 Hgb 14.3 g/dL (11.7-16.6) 10/29/22 11:44 Hct 45.0 % (42.0-52.0) 10/29/22 11:44 MCV 95.7 fl (80-94) H 10/29/22 11:44 MCH 30.4 pg (28.0-34.0) 10/29/22 11: MCHC 31.8 g/dL (30.0-36.0) 10/29/22 11:44 RDW 14.6 % (12.1-15.1) 10/29/22 11:44 Plt Count 164 10^3/cmm (130-400) 10/29/22 11:44 MPV 9.2 fL (7.4-10.4) 10/29/22 11:44 Neut % (Auto) 65.3 % 10/29/22 11:44 Lymph % (Auto) 23.4 % 10/29/22 11:44 [place] % (Auto) 8.8 % 10/29/22 11:44 Eos % (Auto) 1.5 % 10/29/22 11:44 Baso % (Auto) 0.6 % 10/29/22 11:44 Neut # (Auto) 3.40 10^3/uL (1.8-7.7) 10/29/22 11:44 Lymph # (Auto) 1.2 10^3/uL (0.8-4.8) 10/29/22 11:44 [place] # (Auto) 0.5 10^3/uL (0.2-0.9) 10/29/22 11:44 Eos # (Auto) 0.1 10^3/uL (0.0-0.8) 10/29/22 11:44 Baso # (Auto) 0.0 10^3/uL (0.0-0.1) 10/29/22 11:44 Nucleated RBC % (auto) 0 % 10/29/22 11:44 Nucleated RBCs # 0.0 /100WBC 10/29/22 11:44 Sodium 137 mmol/L (136-145) 10/29/22 11:44 Potassium 4.2 mmol/L (3.5-5.1) 10/29/22 11:44 Chloride 99 mmol/L (98-107) 10/29/22 11:44 Carbon Dioxide 30 mmol/L (22-29) H 10/29/22 11:44 Anion Gap 12.2 (5-19) 10/29/22 11:44 BUN 11 mg/dL (8-23) 10/29/22 11:44 Creatinine 0.8 mg/dL (0.7-1.2) 10/29/22 11:44 GFR Calculation 96.4 mL/min (90-130) 10/29/22 11:44 Glucose 124 mg/dL (65-115) H 10/29/22 11:44 Calculated Osmolality 285 mOsm/kg (285-295) 10/29/22 11:44 Calcium 8.9 mg/dL (8.5-10.5) 10/29/22 11:44 Total Bilirubin 0.8 mg/dL (0.15-1.2) 10/29/22 11:44 AST 114 U/L (0-40) H 10/29/22 11:44 ALT 119 U/L (0-41) H 10/29/22 11:44 Alkaline Phosphatase 198 U/L (40-130) H 10/29/22 11:44 C-Reactive Protein 40.8 mg/L (0.0-4.9) H 10/29/22 11:44 Total Protein 7.1 g/dL (6.6-8.7) 10/29/22 11:44 Albumin 3.9 g/dL (3.5-5.2) 10/29/22 11:44 Globulin 3.2 g/dL (1.3-4.6) 10/29/22 11:44 Discharge Plan Discharge Patient Disposition: Placed in Observation Admit Provider: Jose Ferraro Clinical Impression: Cellulitis of left elbow Discharge Diet: Cardiac Sign Out Sign Out Data: Patient Sign Out occurred on 10/29/22 at 17:23. Patient's care was discussed, and care was transferred from to BART Burger. Coding Level of Care Code ED Meteorology Instructor for Chg Fwd Exam Comprehensive Documented by User: Da Romo MD 11/04/22 07:37 HPI - Extremity Problem General: Chief complaint: Extremity Problem,Nontraumatic Stated complaint: left elbow pain Time Seen by Provider: 10/29/22 11:20 PFSH ED PFSH: Medical History History of Crohn's disease History of lung cancer Surgical History History of back surgery 2013 History of colon resection x2 Family History (Updated 10/29/22 @ 20:12 by Jose Ferraro MD) Brother CAD (coronary artery disease) Social History Smoking and tobacco status: never smoked Alcohol intake: never Course Vital Signs: Vital signs: Vital Signs Temperature 98.5 F 10/31/22 08:00 Pulse Rate 99 10/31/22 11:37 Respiratory Rate 16 10/31/22 09:00 Blood Pressure 135/64 10/31/22 08:00 Pulse Oximetry 98 10/31/22 09:00 Oxygen Delivery Me thod 10/31/22 09:00 MDM - Extremity (Nontraumatic) Medical Decision Making Patient is a 67-year-old male comes to the ED with left elbow pain and swelling. Denies any injury or trauma to cause pain. Primary care doctor sent him here to the ED for further evaluation. Left elbow?warm to the touch, swollen and mildly red. Limited range of motion especially flexion less than 90 degrees of elbow due to pain. Neurovascular tact distally. No red streaking seen on arm. Joint does not appear septic. No palpable abscess upon exam. Vitals are stable. CRP of 40.8 and the rest of CBC and CMP were unremarkable. X-ray of left elbow showed no acute findings. Ultrasound of left arm showed complex fluid collection likely abscess at dorsal aspect of elbow. I contacted Dr. Myers and told him about patient case and exam findings along with ultrasound showing an abscess on the dorsal aspect of elbow. He recommends getting a CT of the left arm to better visualize where abscess is located then to contact him and let him know CT report and he will make a decision on further care. Care was assumed from Juancarlos Myers PA-C. Patient has fairly significant redness, warmth, and tenderness to the medial aspect of his left elbow. He does have some limited range of motion but normal micromotion and my suspicion for septic joint based on clinical exam was very low. I spoke to hospitalist Dr. Ferraro requested that orthopedics see patient to evaluate the possibility of a septic joint. Dr. Myers graciously saw patient in the ED does not feel this is the case. Dr. Ferraro was amendable to obs admit for IV antibiotics. Dr. Romo will write admit orders. I discussed this case with BART Burger. I reviewed documentation, laboratory studies, imaging. Da Romo MD Emergency Medicine Lab Data 10/29/22 11:44 10/29/22 11:44 Radiology Impressions Elbow X-Ray 10/29/22 11:27 IMPRESSION: Soft tissue swelling. No acute bony abnormality. Soft Tissue Ultrasound 10/29/22 12:39 IMPRESSION: Diffuse subcutaneous edema with complex fluid collection along the dorsal elbow measuring 1.7 x 1.7 x 0.6 cm suspicious for abscess. Recommend correlation for infection. Upper Extremity CTA 10/29/22 16:42 IMPRESSION: 1. Soft tissue swelling over the posteromedial forearm with extension to the dorsal aspect of the elbow most consistent with severe severe cellulitis without obvious abscess. 2. No obvious soft tissue emphysema or osteomyelitis. 3. Some component of olecranon bursitis can not be ruled out, however the dominant area of radiographic inflammation is the proximal forearm and not the elbow. Laboratory Results WBC 5.2 10^3/uL (4.0-10.0) 10/29/22 11:44 RBC 4.70 10^6/uL (4.1-5.3) 10/29/22 11:44 Hgb 14.3 g/dL (11.7-16.6) 10/29/22 11:44 Hct 45.0 % (42.0-52.0) 10/29/22 11:44 MCV 95.7 fl (80-94) H 10/29/22 11:44 MCH 30.4 pg (28.0-34.0) 10/29/22 11:44 MCHC 31.8 g/dL (30.0-36.0) 10/29/22 11:44 RDW 14.6 % (12.1-15.1) 10/29/22 11:44 Plt Count 164 10^3/cmm (130-400) 10/29/22 11:44 MPV 9.2 fL (7.4-10.4) 10/29/22 11:44 Neut % (Auto) 65.3 % 10/29/22 11:44 Lymph % (Auto) 23.4 % 10/29/22 11:44 [place] % (Auto) 8.8 % 10/29/22 11:44 Eos % (Auto) 1.5 % 10/29/22 11:44 Baso % (Auto) 0.6 % 10/29/22 11:44 Neut # (Auto) 3.40 10^3/uL (1.8-7.7) 10/29/22 11:44 Lymph # (Auto) 1.2 10^3/uL (0.8-4.8) 10/29/22 11:44 [place] # (Auto) 0.5 10^3/uL (0.2-0.9) 10/29/22 11:44 Eos # (Auto) 0.1 10^3/uL (0.0-0.8) 10/29/22 11:44 Baso # (Auto) 0.0 10^3/uL (0.0-0.1) 10/29/22 11:44 Nucleated RBC % (auto) 0 % 10/29/22 11:44 Nucleated RBCs # 0.0 /100WBC 10/29/22 11:44 Sodium 137 mmol/L (136-145) 10/29/22 11:44 Potassium 4.2 mmol/L (3.5-5.1) 10/29/22 11:44 Chloride 99 mmol/L (98-107) 10/29/22 11:44 Carbon Dioxide 30 mmol/L (22-29) H 10/29/22 11:44 Anion Gap 12.2 (5-19) 10/29/22 11:44 BUN 11 mg/dL (8-23) 10/29/22 11:44 Creatinine 0.8 mg/dL (0.7-1.2) 10/29/22 11:44 GFR Calculation 96.4 mL/min (90-130) 10/29/22 11:44 Glucose 124 mg/dL (65-115) H 10/29/22 11:44 Calculated Osmolality 285 mOsm/kg (285-295) 10/29/22 11:44 Calcium 8.9 mg/dL (8.5-10.5) 10/29/22 11:44 Total Bilirubin 0.8 mg/dL (0.15-1.2) 10/29/22 11:44 AST 114 U/L (0-40) H 10/29/22 11:44 ALT 119 U/L (0-41) H 10/29/22 11:44 Alkaline Phosphatase 198 U/L (40-130) H 10/29/22 11:44 C-Reactive Protein 40.8 mg/L (0.0-4.9) H 10/29/22 11:44 Total Protein 7.1 g/dL (6.6-8.7) 10/29/22 11:44 Albumin 3.9 g/dL (3.5-5.2) 10/29/22 11:44 Globulin 3.2 g/dL (1.3-4.6) 10/29/22 11:44 Discharge Plan Discharge Patient Disposition: Placed in Observation Admit Provider: Jose Ferraro Clinical Impression: Cellulitis of left elbow Discharge Diet: Cardiac Sign Out Sign Out Data: Patient Sign Out occurred on 10/29/22 at 17:23. Patient's care was discussed, and care was transferred from to BART Burger. Coding Level of Care Code ED Meteorology Instructor for Paige Fwd Exam Comprehensive
[2022-10-29 11:55] LABS: Basophils % 0.6 %; Eosinophils # 0.1 10^3/uL (0.0-0.8); Eosinophils % 1.5 %; Hemoglobin 14.3 g/dL (11.7-16.6); Lymphocytes # 1.2 10^3/uL (0.8-4.8); Lymphocytes % 23.4 %; Mean Corpuscular HGB Conc 31.8 g/dL (30.0-36.0); Mean Corpuscular Hemoglobin 30.4 pg (28.0-34.0); Mean Corpuscular Volume 95.7 fl (80-94); Mean Platelet Volume 9.2 fL (7.4-10.4); Monocytes # 0.5 10^3/uL (0.2-0.9); Monocytes % 8.8 %; Neutrophils % 65.3 %; Nucleated Red Blood Cells % 0 %; Platelet Count 164 10^3/cmm (130-400); Red Cell Distribution Width 14.6 % (12.1-15.1); White Blood Count 5.2 10^3/uL (4.0-10.0)
[2022-10-29 12:29] LABS: Alanine Aminotransferase 119 U/L (0-41); Albumin Level 3.9 g/dL (3.5-5.2); Alkaline Phosphatase 198 U/L (40-130); Anion Gap 12.2 (5-19); Aspartate Amino Transferase 114 U/L (0-40); Blood Urea Nitrogen 11 mg/dL (8-23); C Reactive Protein 40.8 mg/L (0.0-4.9); Calcium 8.9 mg/dL (8.5-10.5); Carbon Dioxide 30 mmol/L (22-29); Chloride 99 mmol/L (98-107); Globulin 3.2 g/dL (1.3-4.6); Glomerular Filtration Rate 96.4 mL/min (90-130); Glucose 124 mg/dL (65-115); Osmolality Calculated 285 mOsm/kg (285-295); Potassium 4.2 mmol/L (3.5-5.1); Sodium 137 mmol/L (136-145); Total Bilirubin 0.8 mg/dL (0.15-1.2); Total Protein 7.1 g/dL (6.6-8.7)
--- NOTE | 2022-10-29 12:39 | US_ITS ---
WS: [id number] INDICATION: Pain and swelling LEFT elbow TECHNIQUE: Ultrasound elbow FINDINGS: Diffuse subcutaneous edema. Joint effusion. Dorsal complex fluid collection measuring 1.7 x 1.7 x 0.6 CM. Complex fluid collection suspicious for abscess. Recommend correlation for infection. No abnormalities elbow along the medial elbow. US/US soft tissue/extremity [id number] IMPRESSION: Diffuse subcutaneous edema with complex fluid collection along the dorsal elbow measuring 1.7 x 1.7 x 0.6 cm suspicious for abscess. Recommend cor relation for infection.
[2022-10-29] MEDS: morphine 4 mg/mL SDV 1 mL IVP ×3 (13:56→22:31)
[2022-10-29] MEDS: cefTRIAXone 1,000 MG in sodium chloride 0.9% (plus) 50 ML 100 MG IV (15:17)
--- NOTE | 2022-10-29 16:42 | CTR_ITS ---
PROCEDURE INFORMATION: Exam: CTA Left Upper Extremity With Contrast Exam date and time: 10/29/2022 5:48 PM Age: 67 years old Clinical indication: Pain; Elbow; Left; Additional info: Elbow pain-abscess dorsal aspect of elbow TECHNIQUE: Imaging protocol: Computed tomographic angiography of the Left upper extremity with contrast, including non-contrast images if performed. 3D rendering (Not supervised by radiologist): MIP and/or 3D reconstructed images were created by the technologist. Radiation optimization: All CT scans at this facility use at least one of these dose optimization techniques: automated exposure control; mA and/or kV adjustment per patient size (includes targeted exams where dose is matched to clinical indication); or iterative reconstruction. Contrast material: OMNI 350; Contrast volume: 95 ml; Contrast route: INTRAVENOUS (IV); COMPARISON: US soft tissue/extremity [id number] 10/29/2022 1:26 PM RADIATION DOSE METRICS: Total DLP (mGy-cm): 426.77 FINDINGS: Left subclavian artery: No acute findings. No occlusion or significant stenosis. Axillary artery: No acute findings. No occlusion or significant stenosis. Brachial artery: No acute findings. No occlusion or significant stenosis. Radial artery: No acute findings. No occlusion or significant stenosis. Ulnar artery: No acute findings. No occlusion or significant stenosis. Bones/joints: No obvious soft tissue emphysema or osteomyelitis. Some component of olecranon bursitis can not be ruled out, however the dominant area of radiographic inflammation is the proximal forearm and not the elbow. Soft tissues: Soft tissue swelling over the posteromedial forearm with extension to the dorsal aspect of the elbow most consistent with cellulitis without obvious abscess. CT/[place] [id number] IMPRESSION: 1. Soft tissue swelling over the posteromedial forearm with extension to the dorsal aspect of the elbow most consistent with severe severe cellulitis without obvious abscess. 2. No obvious soft tissue emphysema or osteomyelitis. 3. Some component of olecranon bursitis can not be ruled out, however the dominant area of radiographic inflammation is the proximal forearm and not the elbow.
[2022-10-29] MEDS: nicotine 14 mg Patch 1 PATCH TRANSDERMA (16:48)
--- NOTE | 2022-10-29 20:09 | P.HP_ITS ---
Providers/Chief Complaint Primary Care Provider: Howard Munson DO Chief Complaint: left elbow pain History of Present Illness Pablo Saucedo is a 67 year old male with a past medical history of lung cancer status post chemoradiation, history of Crohn's disease, received steroid burst, last treatment was roughly a week ago, smoker, history of cognitive impairment, COPD, who presents to [facility] due to left elbow and arm swelling for the last week. He tells me that last Thursday he started to notice an area of erythema on his forearm, he did not think much of it, but then the erythema started to spread to his left elbow and up his arm, resulting in severe pain, pain with range of motion, and swelling, redness, warmth. Denies any breaks in the skin, no cat or dog bites. No history of bursitis. No history of gout Review of Systems Const: Denies: fever(s) Card: Denies: chest pain Resp: Denies: dyspnea GI: Denies: abdominal pain : Denies: flank pain or difficulty urinating Musc: Reports: extremity pain, joint pain, joint swelling, joint redness, joint warmth and limited range of motion Skin/Breast: Reports: erythema Neuro: Denies: headache(s) Endo: Denies: polyuria Medications/Allergies Home Medications Medication Instructions Recorded Confirmed Last Taken Type metoprolol tartrate 25 mg tablet 25 mg PO BID 01/05/21 09/29/22 04/27/22 History amlodipine 5 mg tablet 5 mg PO DAILY 03/25/22 09/29/22 04/27/22 History albuterol sulfate 90 mcg/actuation 2 puff inhalation Q6H PRN 04/27/22 09/29/22 Unknown History aerosol inhaler Shortness Of Breath alprazolam 1 mg tablet 1 mg PO BEDTIME 04/27/22 09/29/22 04/26/22 History bupropion HCl 300 mg 24 hr tablet, 300 mg PO QAM 04/27/22 09/29/22 04/27/22 Hi story extended release hydrocodone 10 mg-acetaminophen 1 tab PO TID PRN Pain 04/27/22 09/29/22 04/27/22 History 325 mg tablet tiotropium bromide 18 mcg capsule 1 cap inhalation DAILY 04/27/22 09/29/22 04/27/22 History with inhalation device (Spiriva with HandiHaler) galantamine 4 mg tablet 4 mg PO BID #180 tabs 09/29/22 09/29/22 Unknown Rx memantine 10 mg tablet 10 mg PO BID 90 days #180 tabs 09/29/22 09/29/22 Unknown Rx memantine 5 mg tablet 5 mg PO ONCE #7 tabs 09/29/22 09/29/22 Unknown Rx Allergies Allergy/AdvReac Type Severity Reaction Status Date / Time No Known Allergies Allergy Verified 09/29/22 11:29 PFSH Acute PFSH: Medical History History of Crohn's disease History of lung cancer Surgical History History of back surgery 2013 History of colon resection x2 Family History (Updated 10/29/22 @ 20:12 by Jose Ferraro MD) Brother CAD (coronary artery disease) Social History Smoking and tobacco status: never smoked Alcohol intake: never Vitals/I&O/Wt Last Vital Signs Temp 98.2 F 10/29/22 11:15 Pulse 82 10/29/22 18:27 Resp 17 10/29/22 18:27 BP 142/85 10/29/22 18:27 Pulse Ox 96 10/29/22 18:27 O2 Del Method 10/29/22 18:27 10/29/22 10/29/22 10/29/22 06:59 14:59 22:59 Intake Total 50 / 50 Balance 50 / 50 Weight last 48 hrs Weight 85.91 kg Physical Exam Const: COMMON NORMALS: no acute distress and patient oriented x3 HENMT: COMMON NORMALS: normocephalic HEAD & SCALP: normocephalic Eye: COMMON NORMALS: Equal, round and reactive pupils present and EOMs intact bilaterally Neck/C-Spine: COMMON NORMALS: no JVD Lymph: LYMPHATIC: no lymphadenopathy noted Resp: COMMON NORMALS: normal respiratory effort, No retractions, No use of accessory muscles and clear to auscultation bilaterally AUSCULTATION: clear to auscultation bilaterally Cardio: COMMON NORMALS: no JVD, regular rate, regular rhythm, S1 normal heart sound present and S2 normal heart sound present RATE: regular rate RHYTHM: regular rhythm HEART SOUNDS: S1 normal heart sound present and S2 normal heart sound present GI: COMMON NORMALS: Normal to inspection, nondistended, normoactive bowel sounds present, Soft to palpation, non-tender, No hepatosplenomegaly present, no masses and no bruits PALPATION: Yes Soft to palpation and Yes No hepatosplenomegaly present Extremity: COMMON NORMALS: no calf tenderness and no pedal edema OTHER: On examination, erythema around left elbow joint, extending 5 inches above the elbow joint, and 1 inch below the elbow joint, pain with range of motion, swelling, erythema, warmth Neuro: COMMON NORMALS: patient oriented x3, CN's II-XII intact bilaterally, moves all extremities and no focal motor deficits Psych: COMMON NORMALS: mental status grossly normal Data 10/29/22 11:44 10/29/22 11:44 A&P Assessment and plan (1) Cellulitis of left elbow: (2) Mild cognitive impairment with memory loss: (3) History of Crohn's disease: (4) Neurologic gait disorder: Plan Left elbow cellulitis Ultrasound left elbow IMPRESSION: Diffuse subcutaneous edema with complex fluid collection along the dorsal elbow measuring 1.7 x 1.7 x 0.6 cm suspicious for abscess. Recommend correlation for infection. CT left elbow 1. Soft tissue swelling over the posteromedial forearm with extension to the dorsal aspect of the elbow most consistent with severe severe cellulitis without obvious abscess. 2. No obvious soft tissue emphysema or osteomyelitis. 3. Some component of olecranon bursitis can not be ruled out, however the dominant area of radiographic inflammation is the proximal forearm and not the elbow. -On examination I was concerned for the possibility of septic joint -Dr. Myers was consulted by the ER, he came by and saw the left elbow joint, and I was told he did not think that there was anything drainable, he did not feel that it was septic joint -The other possibility is it could be a gouty attack? As he was on a long steroid taper for Crohn's disease exacerbation Plan -Admit to general medical floors -Placed on IV antibiotics vancomycin and cefepime -Continue to clinically monitor -Pro-Wellington, CRP, sed rate, uric acid -Full code -Lovenox for DVT prophylaxis Attestations Medical Necessity Statement*: Patient requires hospitalization, outpatient with observation, due to left elbow Coding Level of Care Code Acute Chief School Finance Officer for Chg Fwd Diagnoses Cellulitis of left elbow L03.114 Mild cognitive impairment with memory loss G31.84 History of Crohn's disease Z87.19 Neurologic gait disorder R26.9
[2022-10-29 21:05] LABS: Uric Acid 5.3 mg/dL (3.4-7.0)
[2022-10-29] MEDS: iohexol 350 mg/mL 500 mL Btl (per mL) IV (21:06)
[2022-10-29 21:12] LABS: Procalcitonin 0.14 ng/mL (0-0.5)
--- NOTE | 2022-10-29 22:02 | PC.NURSE ---
Manjeet BARBOSA took report
--- NOTE | 2022-10-29 22:59 | P.CONIM_ITS ---
Providers/Reason For Consult Consulting Physician/Specialty*: Amaury Myers DO/orthopedic surgery Reason for Consult*: Left forearm/elbow pain and redness Requesting Physician: Juancarlos Myers?JOLIE Hollis?JOLIE Attending Physician: Jose Ferraro MD Primary Care Provider: Howard Munson DO History of Present Illness History of Present Illness Pablo Saucedo is a 67 year old male with complaints of worsening forearm and elbow pain warmth and redness this is over the anteromedial aspect of the forearm. Pain is worsened over the past 4 to 5 days. Its progressively gotten worse and severely tender to palpation. Emergency department had worked up patient and an ultrasound showed possible abscess. Orthopedics was consulted for recommendations and evaluation. Patient denies any fevers chills chest pain shortness of breath nausea or vomiting. Review of Systems General: Reports: 10 or more systems reviewed and unremarkable except in HPI a nd below Medications/Allergies Home Medications Medication Instructions Recorded Confirmed Last Taken Type metoprolol tartrate 25 mg tablet 25 mg PO BID 01/05/21 10/29/22 10/29/22 07:00 History amlodipine 5 mg tablet 5 mg PO DAILY 03/25/22 10/29/22 10/29/22 07:00 History albuterol sulfate 90 mcg/actuation 2 puff inhalation Q6H PRN 04/27/22 10/29/22 Unknown History aerosol inhaler Shortness Of Breath alprazolam 1 mg tablet 1 mg PO BEDTIME 04/27/22 10/29/22 04/26/22 History bupropion HCl 300 mg 24 hr tablet, 300 mg PO QAM 04/27/22 10/29/22 04/27/22 History extended release hydrocodone 10 mg-acetaminophen 1 tab PO TID PRN Pain 04/27/22 10/29/22 04/27/22 History 325 mg tablet tiotropium bromide 18 mcg capsule 1 cap inhalation DAILY 04/27/22 10/29/22 04/27/22 History with inhalation device (Spiriva with HandiHaler) galantamine 4 mg tablet 4 mg PO BID #180 tabs 09/29/22 10/29/22 Unknown Rx memantine 10 mg tablet 10 mg PO BID 90 days #180 tabs 09/29/22 10/29/22 Unknown Rx memantine 5 mg tablet 5 mg PO ONCE #7 tabs 09/29/22 10/29/22 Unknown Rx Allergies Allergy/AdvReac Type Severity Reaction Status Date / Time No Known Allergies Allergy Verified 09/29/22 11:29 PFSH Acute PFSH: Medical History History of Crohn's disease History of lung cancer Surgical History History of back surgery 2013 History of colon resection x2 Family History (Updated 10/29/22 @ 20:12 by Jose Ferraro MD) Brother CAD (coronary artery disease) Social History Smoking and tobacco status: never smoked Alcohol intake: never Vitals/I&O/Wt Last Vital Signs Temp 98.5 F 10/29/22 22:26 Pulse 94 10/29/22 22:26 Resp 18 10/29/22 22:31 BP 128/80 10/29/22 22:26 Pulse Ox 99 10/29/22 22:26 O2 Del Method 10/29/22 22:26 10/29/22 10/29/22 10/29/22 06:59 14:59 22:59 Intake Total 50 / 50 Balance 50 / 50 Weight last 48 hrs Weight 189 lb 6.4 oz Physical Exam Narrative: PT specific examination: Examination left upper extremity no tenderness palpation of the left shoulder with normal range of motion. Patient is a range of motion of the left wrist and hand. He has a area of slight erythema as well as severe tenderness to palpation and induration of the skin on the anteromedial aspect of the elbow at the proximal forearm and just above the medial elbow. No posterior olecranon t enderness no olecranon bursitis noted on examination he is able to tolerate micro range of motion of the left elbow with no palpable joint effusion. No palpable fluctuance is noted throughout. Sensation is intact to light touch distally. Fingertips warm well-perfused. Distal pulses palpable. Patient is able to wiggle fingers and make a fist. No pain with resisted wrist flexion. Data 10/29/22 11:44 10/29/22 11:44 Xray Ortho: My impression: X-rays reviewed the left elbow reviewed and no acute fracture dislocation noted. No obvious joint effusion. Mild soft tissue swelling noted. Other CT: My impression: No appreciable abscess on CT scan as well as no visible joint effusion. Radiologist's impression: IMPRESSION: 1. Soft tissue swelling over the posteromedial forearm with extension to the dorsal aspect of the elbow most consistent with severe severe cellulitis without obvious abscess. 2. No obvious soft tissue emphysema or osteomyelitis. 3. Some component of olecranon bursitis can not be ruled out, however the dominant area of radiographic inflammation is the proximal forearm and not the elbow. US: My impression: Ultrasound of the left elbow demonstrates possible fluid collection. Radiologist's impression: IMPRESSION: Diffuse subcutaneous edema with complex fluid collection along the dorsal elbow measuring 1.7 x 1.7 x 0.6 cm suspicious for abscess. Recommend correlation for infection. A&P Assessment and plan (1) Cellulitis of left elbow: Plan Elevation left upper extremity Compressive Tubigrip/sleeve to left upper extremity arm Ice as needed for pain and discomfort Pain medication Recommend IV Toradol scheduled every 6 hours Recommend IV antibiotics per primary Internal medicine to admit patient is primary for treatment of left upper extremity cellulitis No orthopedic surgical intervention required at this time patient may have a diet No appreciable drainable abscess is noted on the anteromedial and posterior medial elbow. No palpable fluctuance on examination. CT scan shows no fluid collection. The dorsal elbow possible fluid collection would be possible olecranon bursitis however patient on clinical examination has no tenderness to palpation directly over the olecranon bursa. This point time findings consistent with left elbow cellulitis. Given his severe pain elevated CRP feel he should be retreated with antibiotics. No surgical intervention required at this time. Orthopedic surgery team will sign off patient. There is any change in patient's symptoms or questions feel free to contact myself or the orthopedic surgeon on-call. Appreciate your allowing me to partake in the care of this patient. No further orthopedic recommendations at this time. Patient can follow-up with primary care upon discharge for cellulitis. Consult Attestations Medical Necessity Statement: Treatment of left elbow cellulitis Coding Level of Care Code Acute Code for Chg Fwd Diagnoses Cellulitis of left elbow L03.114 Time Spent (min) 45
--- NOTE | 2022-10-29 23:17 | PC.PHAR ---
Pharmacokinetic dosing service Date: 10/29/22 Time: 2316 Objective: Patient: Pablo Saucedo Floor: 252-2 Age: 67 yo Serum creatinine: 0.8 mg/dL Height: 69.0 Inches Weight (kg): 85.91 Diagnosis: Relevant medical/social history: Cultures and sensitivities: Other labs: Assessment: IBW (kg): 70.70 Dosing wt(kg): 85.91 Estimated Creatinine clearance (ml/min): 89.6 CRCL method: Cockcroft and Gault using ibw(default). Drug selected: Vancomycin Loading dose (mg): 0 Vd (liters): 77.3 (factor used: 0.9 L/kg) Jay (hr-1): 0.079 Half life (hrs): 8.77 Recommended dose: 1500 mg Interval: 12 hrs Infusion time (hrs): 1.5 Predicted peak (mcg/mL): 29.9 Predicted trough (mcg/mL): 13.04 Total body weight is being used for vancomycin dosing. Renal function is stable [ ] /unstable [ ] Recommendations: Give Vancomycin 1500 mg q 12 hrs with an expected Cpeak of 29.9 mcg/ml and an expected Ctrough of 13.04 mcg/ml Renal dosing of other antibiotics (review renal dosing of other medications and list guidelines here): Thank you for the consult, will continue to follow. Signature: Liudmila Negron [facility]
[2022-10-30] VITALS (13 sets, daily range): BP systolic 104–142; BP diastolic 71–90; PULSE 73–98; RESP 15–20; TEMP 36.7–37.1; O2SAT 93–97
[2022-10-30] MEDS: pantoprazole 40 mg SDV IVP ×2 (00:16→22:39)
[2022-10-30] MEDS: cefepime 1,000 MG in sodium chloride 0.9% (plus) 50 ML 100 MG IV ×3 (00:18→22:39)
[2022-10-30] MEDS: enoxaparin 40 mg/0.4 mL Syringe SUBCUT ×2 (00:19→22:39)
[2022-10-30] MEDS: ALPRAZolam 0.5 mg Tablet 1 MG PO (00:33)
[2022-10-30] MEDS: metoprolol tartrate 25 mg Tablet PO ×3 (00:33→20:52)
--- NOTE | 2022-10-30 00:41 | PC.NURSE ---
20G IV to R AC infiltrated at this time. IV catheter removed w/tip intact, and pressure drsg applied. 20G IV started to R wrist x 1 attempt. Good blood return noted, and flushes w/ease.
[2022-10-30] MEDS: vancomycin 1,500 MG/300 ML PIGGYBACK 200 MG IV ×3 (01:23→23:16)
[2022-10-30] MEDS: morphine 4 mg/mL SDV 1 mL 2 MG IVP ×2 (04:32→10:15)
[2022-10-30] MEDS: budesonide 0.5 mg/2 mL Neb 0.25 MG INHALATION ×2 (07:26→20:10)
[2022-10-30] MEDS: albuterol 2.5 mg/3 mL Neb INHALATION ×2 (07:26→20:09)
--- NOTE | 2022-10-30 08:18 | P.PN_ITS ---
Subjective Subjective: Patient is complaining of a lot of pain in his left elbow No fever Vitals/I&O/Wt Last Vital Signs Temp 98.2 F 10/30/22 07:59 Pulse 85 10/30/22 07:59 Resp 16 10/30/22 07:59 BP 123/80 10/30/22 07:59 Pulse Ox 94 10/30/22 07:59 O2 Del Method 10/30/22 07:59 10/29/22 10/30/22 10/30/22 22:59 06:59 14:59 Intake Total 50 / 50 350 / 400 Balance 50 / 50 350 / 400 Weight last 48 hrs Weight 85.91 kg Physical Exam Narrative: Tender left elbow Hyperemia extending towards his axilla also involving skin up to his wrist no fluid collection no signs of purulent drainage Tender to touch Patient is euvolemic Abdomen soft Lower extremity trace edema Currently on room air Hemodynamically stable Data 10/29/22 11:44 10/29/22 11:44 Micro: Microbiology 10/29/22 00:01 Blood Culture - Preliminary Blood SPECIMEN COLLECTED 10/29/22 23:45 Blood Culture - Preliminary Blood SPECIMEN COLLECTED A&P Assessment and plan (1) Cellulitis of left elbow: (2) Alzheimer disease: (3) Mild cognitive impairment with memory loss: (4) History of Crohn's disease: (5) Paresthesia of skin: Plan Extra gastrointestinal manifestation of Crohn's disease Tender left elbow Nonpurulent cellulitis With follow-up with orthopedic recommendations Continue antibiotics We will give him anti-inflammatory medications along opioids Add bowel regimen Continue vancomycin and cefepime for today we will de-escalate antibiotics by tomorrow Was on steroid taper at home Considering history of Crohn disease I will treat him with steroids for now along anti-inflammatory medications and antibiotics Cardiac diet Monitor for next 1 day DVT prophylaxis on board Attestations Medical Necessity Statement*: continue Medical management Time Spent in Patient Care: 30 Coding Level of Care Code Acute Manager Willow for Paige Phipps Diagnoses Cellulitis of left elbow L03.114 Alzheimer disease G30.9; F02.80 Mild cognitive impairment with memory loss G31.84 History of Crohn's disease Z87.19 Paresthesia of skin R20.2
[2022-10-30] MEDS: predniSONE 20 mg Tablet 40 MG PO ×2 (08:53→08:55)
[2022-10-30] MEDS: amlodipine 5 mg Tablet PO (08:54)
[2022-10-30] MEDS: memantine 5 mg tablet 10 MG PO ×2 (08:54→17:59)
[2022-10-30] MEDS: ketorolac 30 mg/mL INJ 15 MG IVP (08:57)
--- NOTE | 2022-10-30 10:10 | PC.CHAP ---
Pastoral Care Encounter/Spiritual Assessment Type of Contact [] Declined malt liquors sales supervisor visit [] Patient/Family/Request visit [] Outpatient visit [] Follow-up visit [] Physician referral [] Code/Alert [x] Routine visit [] Staff referral [] Actively dying [] Patient sleeping [] Family support [] [] Out of room [] Palliative care [] [x] Receiving care in room [] Pre-surgical visit [] Trauma [] Long length of stay [] ICU visit [] Other: Relational/Emotional Strength [x] Patient feels connected with others/family/visitors/staff [] Distress [] Loneliness/isolation [] Abandonment Spirituality of Patient [x] Person of Miri [] Attends Samaritan of their Miri [x] Believes in Prayer [] Reads Bible or Anglican materials [] There are Spiritual issues to be addressed Head Of Store Operations Interventions [x] Prayer [x] Active listening [x] Non-anxious presence [x] Spiritual/emotional support [] Crisis/trauma care [x] Spiritual counseling [] Bereavement support [] Provided bereavement packet [] Provided Bible/devotional materials [] Provided toy/stuffed animal, coloring book to patient or family member [] Provided Communion [] Anointing/Vian [] Salvation [x] Completed spiritual assessment [] Other: Impact on Illness or Injury [] Angry [] Fearful [] Anxious [] Often cries [] Exhaustion [] Unable to work [] Unable to attend zoroastrian [] Unable to walk/stand [] Unable to read [] Unable to drive [] Unable to eat/drink [] Unable to sleep [] Unable to be with family [] Patient intubated [] Other: Summary celluson in wrist taking antiabodics has dealt with if before has a postive attitude not sure when he can go home Time spent with patient 10 mins
[2022-10-30 10:14] LABS: Uric Acid 5.2 mg/dL (3.4-7.0)
[2022-10-31] VITALS: BP 100/64; PULSE 88; RESP 16; TEMP 37.8; O2SAT 94
[2022-10-31 03:55] VITALS: BP 111/68; PULSE 89; RESP 16; TEMP 36.8; O2SAT 96
[2022-10-31 05:22] LABS: Basophils % 0.5 %; Eosinophils # 0.1 10^3/uL (0.0-0.8); Eosinophils % 1.2 %; Hemoglobin 13.2 g/dL (11.7-16.6); Lymphocytes # 1.3 10^3/uL (0.8-4.8); Lymphocytes % 21.2 %; Mean Corpuscular HGB Conc 32.2 g/dL (30.0-36.0); Mean Corpuscular Hemoglobin 30.2 pg (28.0-34.0); Mean Corpuscular Volume 93.8 fl (80-94); Mean Platelet Volume 9.8 fL (7.4-10.4); Monocytes # 0.7 10^3/uL (0.2-0.9); Monocytes % 10.9 %; Neutrophils # 3.92 10^3/uL (1.8-7.7); Neutrophils % 65.9 %; Nucleated Red Blood Cells % 0 %; Platelet Count 161 10^3/cmm (130-400); Red Blood Count 4.37 10^6/uL (4.1-5.3); Red Cell Distribution Width 14.6 % (12.1-15.1)
[2022-10-31 05:47] LABS: Anion Gap 13.7 (5-19); Blood Urea Nitrogen 12 mg/dL (8-23); Calcium 8.6 mg/dL (8.5-10.5); Carbon Dioxide 24 mmol/L (22-29); Chloride 104 mmol/L (98-107); Glomerular Filtration Rate 112.5 mL/min (90-130); Glucose 109 mg/dL (65-115); Osmolality Calculated 286 mOsm/kg (285-295); Potassium 3.7 mmol/L (3.5-5.1); Sodium 138 mmol/L (136-145)
--- NOTE | 2022-10-31 06:36 | P.DS_ITS ---
Discharge Providers Date of Admission: 10/29/22 19:52 Date of Discharge: October 31, 2022 Attending Provider at Admission: Jose Ferraro MD Attending Provider at Discharge: Jose Ferraro MD Primary Care Provider: Howard Munson DO Diagnoses at Discharge Discharge Diagnosis (1) Cellulitis of left elbow: Status: Acute Reason for Visit Reason for Visit: left elbow pain Hospital Course Hospital Course 67-year male who was admitted for management of tender left elbow with hyperemia he was given antibiotics for cellulitis however he responded the best to anti- inflammatory and opioid regimen, hyperemia is improving he remained afebrile with no leukocytosis. I do believe he has extragastrointestinal manifestation of Crohn's. I will give him steroid 1 week tapering regimen along doxycycline. I have asked him to take ibuprofen on as-needed basis but not take it on daily. Dr. Myers did not recommend any intervention for now. No signs of septic joint. Physical Exam Narrative: Awake and alert Left elbow no limited range of motion He is able to use it freely No active pain today hyperemia is improving Awake and alert Doing well on room air Hemodynamically stable Discharge Data Studies Completed and Pending Completed Studies During Hospitalization Category Date Time Status CTA upper extremity left [[place] [id number]] Stat Cat Scan 10/29/22 16:42 Completed XR elbow LT min 3V* [id number] Stat Exams 10/29/22 11:27 Completed US soft tissue and or extremity [US soft tissue/ Ultrasound 10/29/22 12:39 Completed extremity [id number]] Stat Pending at discharge Category Date Time Status Blood Culture Routine Lab 10/29/22 12:28 Results Vancomycin Trough Timed Lab 10/31/22 10:30 Ordered Radiology Impressions Elbow X-Ray 10/29/22 11:27 IMPRESSION: Soft tissue swelling. No acute bony abnormality. Soft Tissue Ultrasound 10/29/22 12:39 IMPRESSION: Diffuse subcutaneous edema with complex fluid collection along the dorsal elbow measuring 1.7 x 1.7 x 0.6 cm suspicious for abscess. Recommend correlation for infection. Upper Extremity CTA 10/29/22 16:42 IMPRESSION: 1. Soft tissue swelling over the posteromedial forearm with extension to the dorsal aspect of the elbow most consistent with severe severe cellulitis without obvious abscess. 2. No obvious soft tissue emphysema or osteomyelitis. 3. Some component of olecranon bursitis can not be ruled out, however the dominant area of radiographic inflammation is the proximal forearm and not the elbow. Laboratory Results WBC 6.0 10^3/uL (4.0-10.0) 10/31/22 04:54 RBC 4.37 10^6/uL (4.1-5.3) 10/31/22 04:54 Hgb 13.2 g/dL (11.7-16.6) 10/31/22 04:54 Hct 41.0 % (42.0-52.0) L 10/31/22 04:54 MCV 93.8 fl (80-94) 10/31/22 04:54 MCH 30.2 pg (28.0-34.0) 10/31/22 04:54 MCHC 32.2 g/dL (30.0-36.0) 10/31/22 04:54 RDW 14.6 % (12.1-15.1) 10/31/22 04:54 Plt Count 161 10^3/cmm (130-400) 10/31/22 04:54 MPV 9.8 fL (7.4-10.4) 10/31/22 04:54 Neut % (Auto) 65.9 % 10/31/22 04:54 Lymph % (Auto) 21.2 % 10/31/22 04:54 Fountain % (Auto) 10.9 % 10/31/22 04:54 Eos % (Auto) 1.2 % 10/31/22 04:54 Baso % (Auto) 0.5 % 10/31/22 04:54 Neut # (Auto) 3.92 10^3/uL (1.8-7.7) 10/31/22 04:54 Lymph # (Auto) 1.3 10^3/uL (0.8-4.8) 10/31/22 04:54 Fountain # (Auto) 0.7 10^3/uL (0.2-0.9) 10/31/22 04:54 Eos # (Auto) 0.1 10^3/uL (0.0-0.8) 10/31/22 04:54 Baso # (Auto) 0.0 10^3/uL (0.0-0.1) 10/31/22 04:54 Nucleated RBC % (auto) 0 % 10/31/22 04:54 Nucleated RBCs # 0.0 /100WBC 10/31/22 04:54 Sodium 138 mmol/L (136-145) 10/31/22 04:54 Potassium 3.7 mmol/L (3.5-5.1) 10/31/22 04:54 Chloride 104 mmol/L (98-107) 10/31/22 04:54 Carbon Dioxide 24 mmol/L (22-29) 10/31/22 04:54 Anion Gap 13.7 (5-19) 10/31/22 04:54 BUN 12 mg/dL (8-23) 10/31/22 04:54 Creatinine 0.7 mg/dL (0.7-1.2) 10/31/22 04:54 GFR Calculation 112.5 mL/min (90-130) 10/31/22 04:54 Glucose 109 mg/dL (65-115) 10/31/22 04:54 Calculated Osmolality 286 mOsm/kg (285-295) 10/31/22 04:54 Uric Acid 5.2 mg/dL (3.4-7.0) 10/30/22 09:39 Calcium 8.6 mg/dL (8.5-10.5) 10/31/22 04:54 Total Bilirubin 0.8 mg/dL (0.15-1.2) 10/29/22 11:44 AST 114 U/L (0-40) H 10/29/22 11:44 ALT 119 U/L (0-41) H 10/29/22 11:44 Alkaline Phosphatase 198 U/L (40-130) H 10/29/22 11:44 C-Reactive Protein 40.8 mg/L (0.0-4.9) H 10/29/22 11:44 Total Protein 7.1 g/dL (6.6-8.7) 10/29/22 11:44 Albumin 3.9 g/dL (3.5-5.2) 10/29/22 11:44 Globulin 3.2 g/dL (1.3-4.6) 10/29/22 11:44 Procalcitonin 0.14 ng/mL (0-0.5) 10/29/22 20:38 Vitals Last Vital Signs Temp 98.2 F 10/31/22 03:55 Pulse 89 10/31/22 03:55 Resp 16 10/31/22 03:55 BP 111/68 10/31/22 03:55 Pulse Ox 96 10/31/22 03:55 O2 Del Method 10/31/22 03:55 Discharge Plan Discharge Patient Disposition: Home Condition: Stable Prescriptions: New methylprednisolone [Medrol (Apolinar)] 4 mg tablets,dose pack See Rx Instructions .ROUTE .COMPLEX Qty: 21 0RF Rx Instructions: orally per package directions doxycycline hyclate 100 mg tablet 100 mg PO Q12H 5 Days Qty: 10 0RF Continued metoprolol tartrate 25 mg tablet 25 mg PO BID amlodipine 5 mg tablet 5 mg PO DAILY galantamine 4 mg tablet 4 mg PO BID Qty: 180 0RF Rx Instructions: administer with AM and PM meals; watch for nausea memantine 5 mg tablet 5 mg PO ONCE Qty: 7 0RF Rx Instructions: Take 1 tab daily for 7 days the increase to 10mg twice daily memantine 10 mg tablet 10 mg PO BID 90 Days Qty: 180 2RF alprazolam 1 mg tablet 1 mg PO BEDTIME hydrocodone-acetaminophen 10-325 mg tablet 1 tab PO TID PRN (Reason: Pain) albuterol sulfate 90 mcg/actuation Hfa Aerosol Inhaler 2 puff INHALATION Q6H PRN (Reason: Shortness Of Breath) bupropion HCl 300 mg Tablet Extended Release 24 Hr 300 mg PO QAM Spiriva with HandiHaler 18 mcg Capsule, W/Inhalation Device 1 cap INHALATION DAILY Rx Instructions: puncture 1 cap using device; one dose = 2 inhalations Discharge Orders: Discharge Order (Routine); Ordered 10/31/22 Ordered By: Fazal Sorensen Referrals: Howard Munson DO [Primary Care Provider] - (Clinic will call with your appointment date and time.) Discharge Diet: Cardiac Patient Instructions: Cellulitis (GEN), Opioid Safety, Pain Management Discharge Attestations Time Spent in Discharge Care*: less than 30 min Quality Metrics Clinical Quality Measures [ No reported AMI, CVA or VTE this stay] Coding Level of Care Code Acute Chg FW DC note Diagnoses Cellulitis of left elbow L03.114
[2022-10-31 08:00] VITALS: BP 135/64; PULSE 91; PULSE 99; RESP 16; TEMP 36.9; O2SAT 97
[2022-10-31] MEDS: memantine 5 mg tablet 10 MG PO (08:15)
[2022-10-31] MEDS: predniSONE 20 mg Tablet 40 MG PO (08:15)
[2022-10-31] MEDS: metoprolol tartrate 25 mg Tablet PO (08:16)
[2022-10-31] MEDS: amlodipine 5 mg Tablet PO (08:16)
[2022-10-31] MEDS: budesonide 0.5 mg/2 mL Neb 0.25 MG INHALATION (08:58)
[2022-10-31 09:00] VITALS: PULSE 90; RESP 16; O2SAT 98
[2022-10-31] MEDS: albuterol 2.5 mg/3 mL Neb INHALATION (09:00)
[2022-10-31 09:02] VITALS: PULSE 99
[2022-10-31 11:37] VITALS: PULSE 99
--- NOTE | 2022-11-02 11:39 | PC.NURSE ---
Called patient's antibiotic's called into the [facility] in [place]. Patient called and updated.
== END 2022-10-31 10:30 | disposition home or self-care (01) ==
LOC: ER 20:29 → MEDSURG 20:43
PROVIDERS: Internal Medicine; Physician Assistant; Admitting Provider Family Medicine; Emergency Provider Physician Assistant; PCP Family Medicine; Visit Provider Family Medicine
DX: L03.114 Cellulitis of left upper limb (principal); G30.9 Alzheimer's disease, unspecified; F02.80 Dementia in other diseases classified elsewhere, unspecified severity, without behavioral disturbance, psychotic disturbance, mood disturbance, and anxiety; G31.84 Mild cognitive impairment of uncertain or unknown etiology; Z87.19 Personal history of other diseases of the digestive system; R20.2 Paresthesia of skin; Z85.118 Personal history of other malignant neoplasm of bronchus and lung; Z90.49 Acquired absence of other specified parts of digestive tract; Z92.21 Personal history of antineoplastic chemotherapy
CPT/HCPCS: 36415; 73080; 73206; 76882; 80048; 80053; 84145; 84550; 85025; 86140; 87040; 94640; 94664; 96365; 96367; 96372; 96375; 96376; 99285; C9113; G0378; J0692; J0696; J1650; J1885; J2270; J3370; J7512; J7613; J7626; Q9967

== ENCOUNTER 2022-11-09 07:19 | Emergency (ER) | payer OTHER, SELFPAY ==
[2022-11-09 07:25] VITALS: BP 120/77; PULSE 76; RESP 16; TEMP 36.7; O2SAT 98
--- NOTE | 2022-11-09 07:49 | USR_ITS ---
PROCEDURE INFORMATION: Exam: US Duplex Left Upper Extremity Veins, Limited Exam date and time: 11/09/2022 8:22 AM Age: 67 years old Clinical indication: Pain; Arm, upper; Left; Additional info: Swelling R/O dvt TECHNIQUE: Imaging protocol: Real-time duplex ultrasound of the Left extremity with 2-D massey scale, color Doppler flow and spectral waveform analysis including responses to compression and other maneuvers (when performed) with image documentation. Limited exam focused on the left upper extremity veins. COMPARISON: US soft tissue/extremity [id number] 10/29/2022 1:26 PM FINDINGS: Left deep veins: Unremarkable. Axillary and brachial veins are patent throughout without thrombus. Normal Doppler waveforms. Normal compressibility and augmentation response. Visualized internal jugular and subclavian veins are patent. Left superficial veins: Unremarkable. Visualized cephalic and basilic veins are patent without thrombus. Soft tissues: Unremarkable. US/[place] [id number] IMPRESSION: No evidence of deep vein thrombosis.
--- NOTE | 2022-11-09 07:50 | ED_ITS ---
HPI - Extremity Problem General: Chief complaint: Extremity Problem,Nontraumatic Stated complaint: cellulitis not improving Time Seen by Provider: 11/09/22 07:32 History of Present Illness: 67-year-old male who presents with left elbow pain. The patient was seen here 1 week ago, treated for cellulitis with 5 days of antibiotics and steroids. He states he got better but today, the pain and swelling returned. He states it is painful to move his elbow. He denies fever. He denies trauma to the area. He was treated with 5 days of doxycycline. The pain is severe, worse with movement and palpation. Patient is not a diabetic. Review of Systems General: Reports: 10 or more systems reviewed and unremarkable except in HPI and below PFSH ED PFSH: Medical History History of Crohn's disease History of lung cancer Surgical History History of back surgery 2013 History of colon resection x2 Family History (Updated 10/29/22 @ 20:12 by Jose Ferraro MD) Brother CAD (coronary artery disease) Social History Smoking and tobacco status: never smoked Alcohol intake: never Physical Exam Const: COMMON NORMALS: no acute distress, patient oriented x3, alert and well nourished Eye: COMMON NORMALS: conjunctivae normal CONJUNCTIVA: Yes conjunctivae normal Resp: EFFORT & INSPECTION: Yes able to speak in complete sentences and No respiratory distress Cardio: OTHER: heart normal rate Extremity: LEFT UPPER EXTREMITY: Yes elbow joint (Tenderness, erythema and in duration extending from mid biceps area ) and Yes lower arm OTHER: Distal neurovascular function is intact. EXTREMITY IMAGE (BACK): 1. Erythema, induration and tenderness extending on the dorsal aspect of the left arm. No fluctuance in this region. Limited range of motion due to pain. Neuro: COMMON NORMALS: patient oriented x3 SENSORIUM/ORIENTATION: Yes alert Course Reevaluation(s): Reevaluation #1: venous doppler negative for DVT as well as soft tissue abnormality. The patient has been given rocephin IM in the ED. Will plan for dc on Keflex 500mg TID X 10 days as well as Clindamycin 300mg TID x 10 days. Recommend the patient ice and elevate, take his pain medication as needed. Return if worsening or if not better in 48 hours. Vital Signs: Vital signs: Vital Signs Temperature 98.1 F 11/09/22 07:25 Pulse Rate 76 11/09/22 07:25 Respiratory Rate 16 11/09/22 07:25 Blood Pressure 120/77 11/09/22 07:25 Pulse Oximetry 98 11/09/22 07:25 Oxygen Delivery Me thod 11/09/22 07:25 MDM - Extremity (Nontraumatic) Medical Decision Making Patient presents with an area of induration, erythema and tenderness along the dorsal aspect of left distal upper arm, elbow and forearm region. There is no fluctuance. The patient does have limited range of motion but it is localized just to the posterior medial aspect of the arm. There is no joint involvement. There is no lymphangitic spread proximally I do not feel the patient has a septic joint as the joint itself is not erythe matous / swollen and no effusion. No abscess noted. Certainly gout could be possible, but not likely as not localized to joint. Suspect cellulitis most likely that was partially treated with clindamycin and keflex Differential Diagnosis Likely gout, cellulitis, superficial thrombophlebitis and deep venous thrombosis of upper extremity Medical Records Reviewed chart from recent visit. Patient had a CTA of the chest which showed cellulitis but no abscess. Patient did have ultrasound which showed a small possible abscess. Lab Data Radiology Impressions Venous Duplex 11/09/22 07:49 IMPRESSION: No evidence of deep vein thrombosis. Discharge Plan Discharge Patient Disposition: Home Clinical Impression: Cellulitis Condition: Stable Prescriptions: New clindamycin HCl 300 mg capsule 300 mg PO TID 10 Days Qty: 30 0RF cephalexin 500 mg capsule 500 mg PO Q8H 10 Days Qty: 30 0RF No Action metoprolol tartrate 25 mg tablet 25 mg PO BID amlodipine 5 mg tablet 5 mg PO DAILY galantamine 4 mg tablet 4 mg PO BID Qty: 180 0RF Rx Instructions: administer with AM and PM meals; watch for nausea memantine 5 mg tablet 5 mg PO ONCE Qty: 7 0RF Rx Instructions: Take 1 tab daily for 7 days the increase to 10mg twice daily memantine 10 mg tablet 10 mg PO BID 90 Days Qty: 180 2RF Medrol (Apolinar) 4 mg tablets,dose pack See Rx Instructions .ROUTE .COMPLEX Qty: 21 0RF Rx Instructions: orally per package directions alprazolam 1 mg tablet 1 mg PO BEDTIME hydrocodone-acetaminophen 10-325 mg tablet 1 tab PO TID PRN (Reason: Pain) albuterol sulfate 90 mcg/actuation Hfa Aerosol Inhaler 2 puff INHALATION Q6H PRN (Reason: Shortness Of Breath) bupropion HCl 300 mg Tablet Extended Release 24 Hr 300 mg PO QAM Spiriva with HandiHaler 18 mcg Capsule, W/Inhalation Device 1 cap INHALATION DAILY Rx Instructions: puncture 1 cap using device; one dose = 2 inhalations Discharge Orders: Discharge ED (Routine); Ordered 11/09/22 Ordered By: Anna Patterson Referrals: Howard Munson DO [Primary Care Provider] - Discharge Diet: Advance as tolerated Discharge Activity: Resume usual activity and Increase activity as tolerated Patient Instructions: Cellulitis, Opioid Safety, Pain Management Activity Restrictions/Additional Instructions: keep the arm elevated, ice to the sore area, take the antibiotics as prescribed, take your pain medications as needed. Return if worsening or if you are not better in 48 hours. Follow up this week with your primary doctor Coding Level of Care Code ED Extractor Plant Operator for Paige Fwd Exam Expanded Problem Focused
--- NOTE | 2022-11-09 08:26 | PC.NURSE ---
ASSISTED PT WITH CHANGING FOR ULTRASOUND. PT IS AWAKE AND ALERT. ATTEMPTED TO ADM MEDICATIONS UNABLE DUE TO ULTRASOUND BEING PERFORMED. WILL ATTEMPT IN 20 MINUTES WHEN ULTRASOUND STATED THEY WOULD BE DONE.
[2022-11-09] MEDS: ketorolac 30 mg/mL INJ 15 MG IM (08:48)
[2022-11-09] MEDS: cefTRIAXone 1,000 MG in water for injection-sterile 2.1 ML 1 MG IM (08:49)
[2022-11-09 11:00] VITALS: BP 112/71; PULSE 67; RESP 16; O2SAT 98
== END 2022-11-09 11:13 | disposition home or self-care (01) ==
PROVIDERS: Emergency Provider Emergency Medicine; PCP Family Medicine
DX: L03.114 Cellulitis of left upper limb (principal); Z79.82 Long term (current) use of aspirin; Z85.118 Personal history of other malignant neoplasm of bronchus and lung
CPT/HCPCS: 93971; 96372; 99284; J0696; J1885

== ENCOUNTER 2022-11-11 11:15 | Outpatient (CLI) | payer OTHER, SELFPAY ==
--- NOTE | 2022-11-11 11:45 | MR_ITS ---
WS: [id number] MRA ANGIOGRAPHY [place] HISTORY: I67.1 - Cerebral aneurysm, nonruptured COMPARISON: 05/02/2022 TECHNIQUE: 3-D MR angiography is performed of the [place]. All images are reviewed including source images. Distal vertebral and basilar arteries are intact with no significant stenosis or plaque. LEFT vertebr al artery is dominant. Posterior cerebral arteries are normal course and caliber. Posterior communica ting arteries are both patent. Again noted is the aneurysm projecting from the distal RIGHT M1 segment posterior and superior measur ing 5.3 mm. There is slight increase in size since the prior exam. No associated hemorrhage or thromb us. No additional aneurysms. Very minimal atherosclerotic plaque in the cavernous carotids and MLO 1 segments. No occlusions or high-grade stenosis. MR/MR angio head wo con [id number] IMPRESSION: 1. 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 Very minimal increase in size since the prior study. May be due to slic e selection. 2. No additional aneurysms or occlusions.
== END 2022-11-11 11:16 | disposition home or self-care (01) ==
LOC: RAD 11:18
PROVIDERS: PCP Family Medicine; Visit Provider Specialist
DX: I67.1 Cerebral aneurysm, nonruptured (principal); R41.89 Other symptoms and signs involving cognitive functions and awareness; R26.9 Unspecified abnormalities of gait and mobility
CPT/HCPCS: 70544

== ENCOUNTER → 2023-01-06 14:53 | Outpatient (BNVA) | payer OTHER, SELFPAY | PROVIDERS: PCP Family Medicine; Visit Provider Specialist | DX: G30.9 Alzheimer's disease, unspecified (principal); F02.80 Dementia in other diseases classified elsewhere, unspecified severity, without behavioral disturbance, psychotic disturbance, mood disturbance, and anxiety; M25.522 Pain in left elbow | CPT/HCPCS: 96116; 99214 ==

== ENCOUNTER → 2023-02-16 10:23 | Outpatient (BNVA) | payer OTHER, SELFPAY | PROVIDERS: PCP Family Medicine; Referring Provider Nurse Practitioner Family; Visit Provider Student in an Organized Health Care Education/Training Program | DX: M25.522 Pain in left elbow (principal) | CPT/HCPCS: 99203 ==

== ENCOUNTER → 2023-07-15 12:22 | Outpatient (BNVA) | payer OTHER, SELFPAY | PROVIDERS: PCP Family Medicine; Visit Provider Specialist | DX: M96.1 Postlaminectomy syndrome, not elsewhere classified (principal); Z98.1 Arthrodesis status; R41.3 Other amnesia; I67.1 Cerebral aneurysm, nonruptured; G89.29 Other chronic pain; M54.9 Dorsalgia, unspecified; F32.A Depression, unspecified | CPT/HCPCS: 99214; 99215 ==

== ENCOUNTER 2023-08-11 13:57 | Outpatient (CLI) | payer OTHER, SELFPAY ==
--- NOTE | 2023-08-11 14:30 | MR_ITS ---
WS: [id number] MRA HEAD TECHNIQUE: Axial 3-D TOF images obtained with axial images and axial, sagittal, and coronal 2-D refor matted images. CLINICAL INFORMATION: R51.9 - Headache, unspecified COMPARISON: MRA 05/02/2022 and 11/11/2022 FINDINGS: Mild segmental proximal intracranial atheromatous disease. No evidence of high-grade proximal flow li miting stenosis. Small posterior superior projecting RIGHT distal M1 segment aneurysm measuring 5.3 m m unchanged. Distal vertebral arteries are patent. Basilar artery is patent. Normal vascularity to the [employer] territo ry bilaterally. Both ICAs are patent at the skull base. Cavernous carotid arteries are patent. Normal vascularity to the URTH and MCA territories bilaterally. Small RIGHT A1 segment. IMPRESSION: 1. No significant change compared to previous 11/11/2022. 2. Posterior superior projecting RIGHT M1 segment aneurysm measuring 5.3 mm involving the origin of the RIGHT orbitofrontal artery 3. Mild proximal segmental intracranial atheromatous disease 4. No flow-limiting stenosis.
--- NOTE | 2023-08-11 14:45 | MR_ITS ---
WS: [id number] MRI LUMBAR SPINE NONCONTRAST TECHNIQUE: Sagittal T1, T2 and STIR imaging. Axial T1 and T2 imaging. CLINICAL INFORMATION: M96.1 - Postlaminectomy syndrome, not elsewhere classified COMPARISON: None. FINDINGS: Mild lumbar curve. No acute compression. Pedicle screw fixation L5-S1 with interbody fusion graft. L1-L2: Mild facet arthropathy. Spinal canal and foramen are patent. L2-L3: Mild facet arthropathy. Spinal canal and foramen are patent. L3-L4: Mild annular bulging. Mild facet arthropathy. Spinal canal and foramen are patent. L4-L5: Mild annular bulging. Slight effacement of the ventral thecal sac. Moderate facet arthropathy with small facet effusions. Tiny RIGHT foraminal protrusion with mild RIGHT foraminal narrowing. LEFT foramen is patent. L5-S1: Pedicle screw fixation. Interbody fusion. Spinal canal and foramen are patent. Moderate facet arthropathy. Prior LEFT hemilaminectomy. Visualized pelvic bony structures: Normal. Paravertebral soft tissues: Normal. IMPRESSION: 1. Prior postoperative changes pedicle screw fixation L5-S1 with interbody fusion graft. LEFT L5-S1 hemilaminectomy. 2. No recurrent central canal stenosis. 3. Moderate facet arthropathy L4-5 with bilateral facet effusions. 4. Mild annular bulging L4-5 with slight narrowing of the subarticular recess bilaterally. Mild RIGH T L4-5 foraminal narrowing. 5. No other acute findings.
== END 2023-08-11 13:58 | disposition home or self-care (01) ==
PROVIDERS: PCP Family Medicine; Visit Provider Specialist
DX: I67.1 Cerebral aneurysm, nonruptured (principal); R51.9 Headache, unspecified; M96.1 Postlaminectomy syndrome, not elsewhere classified; Z98.1 Arthrodesis status; I67.2 Cerebral atherosclerosis
CPT/HCPCS: 70544; 72148

== ENCOUNTER 2023-09-29 17:25 | Emergency (ER) | payer OTHER, SELFPAY ==
[2023-09-29 18:33] VITALS: BP 135/82; PULSE 68; RESP 18; TEMP 36.7; O2SAT 96
--- NOTE | 2023-09-29 18:43 | XRR_ITS ---
PROCEDURE INFORMATION: Exam: XR Left Elbow Exam date and time: 09/29/2023 6:50 PM Age: 67 years old Clinical indication: Pain; Elbow; Left; Additional info: Lt elbow pain for a year TECHNIQUE: Imaging protocol: Radiologic exam of the left elbow. Views: 3 or more views. COMPARISON: No relevant prior studies available. FINDINGS: Bones/joints: Prominent joint effusion at the left elbow. No fracture. Soft tissues: Normal. XR/XR elbow LT min 3V* [id number] IMPRESSION: 1. Prominent joint effusion at the left elbow. Infection can not be excluded and clinical correlation is recommended. 2. No fracture.
--- NOTE | 2023-09-29 20:36 | ED_ITS ---
HPI - Extremity Problem 2 General: Chief complaint: Extremity Problem,Nontraumatic Stated complaint: left arm pain Time Seen by Provider: 09/29/23 17:27 History of Present Illness: Patient is a 67-year-old male with a past medical history significant for cellulitis of the left elbow, Alzheimer's disease, Crohn's disease, and history of lung cancer who presents to the emergency department for evaluation of left elbow pain. Patient reports that approximately 1 year ago he was admitted to the hospital for IV antibiotics with similar symptoms. Patient reports that this new exacerbation of left elbow pain started approximately 6 months ago and has continued to progress since onset. He currently rates his pain as a 6 out of 10 in severity that he describes as an aching sensation. Pain is exacerbated with palpation to the affected area and movement of his left elbow. Admits to decreased range of motion in the left elbow secondary to pain. He denies any numbness or tingling into the ipsilateral extremity. He denies any erythema swelling, or ecchymosis to the affected area. He denies any trauma or event that could have elicited his symptoms. He denies fever, chills, chest pain, shortness of breath, palpitations, abdominal pain, constipation, diarrhea, dysuria, hematuria, lightheadedness, dizziness, nausea, vomiting, dysuria, hematuria, or any other associated symptoms. No other complaints at this time. Associated symptoms: Deny chest pain, fever(s) or rash Review of Systems 2 General: Reports: 10 or more systems reviewed and unremarkable except in HPI and below Const: Denies: fever(s) or chills Eyes: Denies: change in vision or blurry vision ENMT: Denies: throat pain, ear or mastoid pain, nasal discharge or nasal congestion Card: Denies: chest pain or palpitations Resp: Denies: dyspnea, productive cough, non-productive cough or wheezing GI: Denies: abdominal pain, nausea, vomiting, diarrhea or constipation : Denies: dysuria or hematuria Musc: Reports: joint pain; Denies: neck pain or back pain Skin/Breast: Denies: rash or erythema Neuro: Denies: headache(s), numbness in extremities, dizziness or vertigo [facility] ED 2 PFS: Medical History (Updated 09/29/23 @ 22:01 by BART Huynh) Cellulitis of left elbow Alzheimer disease Mild cognitive impairment with memory loss Neurologic gait disorder History of lung cancer History of Crohn's disease Paresthesia of skin Surgical History (Updated 07/15/23 @ 13:26 by Sarina Erickson MD) History of colon resection x2 History of back surgery 2012 Family History Brother CAD (coronary artery disease) Social History Smoking and tobacco/nicotine status: never used tobacco/nicotine Alcohol intake: never Substance/Drug Use: never Physical Exam 2 Const: COMMON NORMALS: no acute distress, average body habitus, patient oriented x3 and alert HENMT: COMMON NORMALS: normocephalic, atraumatic, moist oral mucous membranes and oropharynx normal HEAD & SCALP: normocephalic and atraumatic Eye: COMMON NORMALS: Equal, round and reactive pupils present, EOMs intact bilaterally, conjunctivae normal and no scleral icterus CONJUNCTIVA: Yes conjunctivae normal PUPIL: Yes Equal, round and reactive pupils present Neck/C-Spine: COMMON NORMALS: full ROM, no lymphadenopathy, supple and no meningeal signs Chest: COMMONS NORMALS: normal inspection of the chest Resp: COMMON NORMALS: normal respiratory effort, No retractions, No use of accessory muscles and clear to auscultation bilaterally AUSCULTATION: clear to auscultation bilaterally Cardio: COMMON NORMALS: regular rate, regular rhythm, No gallops present (Cardio), No clicks present (Cardio), No murmurs present (Cardio) and No rub (Cardio) RATE: regular rate RHYTHM: regular rhythm OTHER: 2+ radial pulse left wrist Extremity: OTHER: Diffuse left elbow pain noted to palpation. Patient has mildly reduced range of motion of the left elbow secondary to pain. A mild amount of swelling is appreciated to the affected area. The left elbow is mildly warm to palpation. No erythema or ecchymosis is noted. No bony abnormalities or protuberances appreciated. Moving all other bilateral upper and lower extremities without weakness or deficit. Neuro: COMMON NORMALS: patient oriented x3 SENSORIUM/ORIENTATION: Yes alert MENINGEAL SIGNS: Yes no meningeal signs OTHER: Sensation intact to the entirety of the left upper extremity. Course 2 Vital Signs: Vital signs: Vital Signs Temperature 98.1 F 09/29/23 18:33 Pulse Rate 68 12/12/23 18:33 Respiratory Rate 18 09/29/23 18:33 Blood Pressure 135/82 09/29/23 18:33 Pulse Oximetry 96 09/29/23 18:33 Oxygen Delivery Me thod Room Air 09/29/23 18:33 MDM - Extremity (Nontraumatic) Medical Decision Making Patient is a 67-year-old male with a past medical history significant for cellulitis of the left elbow, Alzheimer's disease, Crohn's disease, and history of lung cancer who presents to the emergency department for evaluation of left elbow pain. On physical examination patient is nontoxic and in no acute distress. Vital signs remained stable throughout the ED course. Patient is afebrile. Patient is neurovascularly intact. X-ray of the left elbow showed a prominent joint effusion at the left elbow. Infection cannot be excluded and clinical correlation is recommended. No acute fracture noted. The left elbow is not erythematous. CBC showed no evidence of leukocytosis. CRP was very mildly elevated 9.9. CMP and lactic acid unremarkable. Blood cultures currently pending. Patient states that his symptoms have been progressive for the last [address] Jacobson, the orthopedic surgeon on-call, who did not think septic arthritis was likely at this time. Recommended outpatient follow-up with his orthopedic physician and primary care provider. She did not feel joint aspiration was necessary in the emergency department. She did not feel initiation of antibiotics was necessary. I will have the patient follow-up with his primary care provider and orthopedic physician as instructed. Increase oral hydration. See handout over generalize instructions. A referral was sent to Dr. Myers, the orthopedic surgeon here in [place]. Call tomorrow to schedule appointment for further management/evaluation. Continue to take Tylenol and ibuprofen as needed for pain. See handout over generalize instructions. Call your primary care provider tomorrow with an update of your symptoms and schedule appointment for further management/evaluation. Ice can be placed over the affected area 15 to 20 minutes 5-6 times a day. Avoid strenuous physical activity for the next several days that can exacerbate your symptoms. Return to the Emergency Department for any rapid or worsening symptoms to include but not limited to increased pain, redness to the affected area, red streaking, fever, chills, nausea, vomiting, or as needed. Patient stated understanding of all discharge instructions and was agreeable to the plan of care. I discussed the patient's history, exam, and all findings with Dr. Rosas in the emergency room who agreed my assessment and plan. Differential diagnosis includes but is not limited to olecranon bursitis, fracture, dislocation, contusion, septic arthritis, epicondylitis, rheumatoid arthritis, osteoarthritis Lab Data 09/29/23 21:16 09/29/23 21:16 Radiology Impressions Elbow X-Ray 09/29/23 18:43 IMPRESSION: 1. Prominent joint effusion at the left elbow. Infection can not be excluded and clinical correlation is recommended. 2. No fracture. Laboratory Results WBC 6.18 10^3/uL (3.29-11.43) 09/29/23 21:16 RBC 4.93 10^6/uL (3.85-5.65) 09/29/23 21:16 Hgb 15.00 g/dL (11.27-16.99) 09/29/23 21:16 Hct 44.9 % (37-53) 09/29/23 21:16 MCV 91.1 fl (82-101) 09/29/23 21:16 MCH 30.4 pg (27-33) 09/29/23 21:16 MCHC 33.4 g/dL (30-55) 09/29/23 21:16 RDW 12.8 % (12.1-15.1) 09/29/23 21:16 Plt Count 197 10^3/cmm (157-399) 09/29/23 21:16 MPV 9.2 fL (7.4-10.4) 09/29/23 21:16 Neut % (Auto) 54.5 % 09/29/23 21:16 Lymph % (Auto) 34.8 % 09/29/23 21:16 [place] % (Auto) 7.4 % 09/29/23 21:16 Eos % (Auto) 2.4 % 09/29/23 21:16 Baso % (Auto) 0.6 % 09/29/23 21:16 Neut # (Auto) 3.36 10^3/uL (1.8-7.7) 09/29/23 21:16 Lymph # (Auto) 2.2 10^3/uL (0.8-4.8) 09/29/23 21:16 [place] # (Auto) 0.5 10^3/uL (0.2-0.9) 09/29/23 21:16 Eos # (Auto) 0.2 10^3/uL (0.0-0.8) 09/29/23 21:16 Baso # (Auto) 0.0 10^3/uL (0.0-0.1) 09/29/23 21:16 Nucleated RBC % (auto) 0 % 09/29/23 21:16 Nucleated RBCs # 0.0 /100WBC 09/29/23 21:16 Sodium 137 mmol/L (136-145) 09/29/23 21:16 Potassium 4.1 mmol/L (3.5-5.1) 09/29/23 21:16 Chloride 101 mmol/L (98-107) 09/29/23 21:16 Carbon Dioxide 26 mmol/L (22-29) 09/29/23 21:16 Anion Gap 14.1 (5-19) 09/29/23 21:16 BUN 11 mg/dL (8-23) 09/29/23 21:16 Creatinine 1.0 mg/dL (0.7-1.2) 09/29/23 21:16 GFR Calculation 74.5 mL/min (90-130) L 09/29/23 21:16 Glucose 93 mg/dL (65-115) 09/29/23 21:16 Calculated Osmolality 283 mOsm/kg (285-295) L 09/29/23 21:16 Lactic Acid 1.2 mmol/L (0.5-2.2) 09/29/23 21:16 Calcium 9.2 mg/dL (8.5-10.5) 09/29/23 21:16 Total Bilirubin 0.4 mg/dL (0.15-1.2) 09/29/23 21:16 AST 20 U/L (0-40) 09/29/23 21:16 ALT 32 U/L (0-41) 09/29/23 21:16 Alkaline Phosphatase 101 U/L (40-130) 09/29/23 21:16 C-Reactive Protein 9.9 mg/L (0.0-4.9) H 09/29/23 21:16 Total Protein 6.6 g/dL (6.6-8.7) 09/29/23 21:16 Albumin 3.7 g/dL (3.5-5.2) 09/29/23 21:16 Globulin 2.9 g/dL (1.3-4.6) 09/29/23 21:16 All radiology interpretation(s) finalized by discharge Discharge Plan Discharge Patient Disposition: Home Clinical Impression: Left elbow pain Condition: Stable Prescriptions: No Action metoprolol tartrate 25 mg tablet 25 mg PO BID amlodipine 5 mg tablet 5 mg PO DAILY memantine 10 mg tablet 10 mg PO BID 90 Days Qty: 180 3RF galantamine 4 mg tablet 4 mg PO BID Qty: 180 3RF Rx Instructions: administer with AM and PM meals; watch for nausea memantine 5 mg tablet 5 mg PO ONCE Qty: 7 0RF Rx Instructions: Take 1 tab daily for 7 days the increase to 10mg twice daily Medrol (Apolinar) 4 mg tablets,dose pack See Rx Instructions .ROUTE .COMPLEX Qty: 21 0RF Rx Instructions: orally per package directions alprazolam 1 mg tablet 1 mg PO BEDTIME hydrocodone-acetaminophen 10-325 mg tablet 1 tab PO TID PRN (Reason: Pain) albuterol sulfate 90 mcg/actuation Hfa Aerosol Inhaler 2 puff INHALATION Q6H PRN (Reason: Shortness Of Breath) bupropion HCl 300 mg Tablet Extended Release 24 Hr 300 mg PO QAM Spiriva with HandiHaler 18 mcg Capsule, W/Inhalation Device 1 cap INHALATION DAILY Rx Instructions: puncture 1 cap using device; one dose = 2 inhalations Discharge Orders: Discharge ED (Routine); Ordered 09/29/23 Ordered By: Tomás Gutierrez Referrals: Amaury Myers DO [Physician] - Howard Munson DO [Primary Care Provider] - Patient Instructions: Arthralgia (ED) Activity Restrictions/Additional Instructions: As discussed in room no acute or concerning pathology was noted on your laboratory work. Increase oral hydration. See handout over generalize instructions. A referral was sent to Dr. Myers, the orthopedic surgeon here in [place]. Call tomorrow to schedule appointment for further management/evaluation. Continue to take Tylenol and ibuprofen as needed for pain. See handout over generalize instructions. Call your primary care provider tomorrow with an update of your symptoms and schedule appointment for further management/evaluation. Ice can be placed over the affected area 15 to 20 minutes 5-6 times a day. Avoid strenuous physical activity for the next several days that can exacerbate your symptoms. Return to the Emergency Department for any rapid or worsening symptoms to include but not limited to increased pain, redness to the affected area, red streaking, fever, chills, nausea, vomiting, or as needed. Coding Level of Care Code ED Carpenter/Labor for Paige Phipps
[2023-09-29 21:36] LABS: Basophils % 0.6 %; Eosinophils # 0.2 10^3/uL (0.0-0.8); Eosinophils % 2.4 %; Hematocrit 44.9 % (37-53); Lymphocytes # 2.2 10^3/uL (0.8-4.8); Lymphocytes % 34.8 %; Mean Corpuscular HGB Conc 33.4 g/dL (30-55); Mean Corpuscular Hemoglobin 30.4 pg (27-33); Mean Corpuscular Volume 91.1 fl (82-101); Mean Platelet Volume 9.2 fL (7.4-10.4); Monocytes # 0.5 10^3/uL (0.2-0.9); Monocytes % 7.4 %; Neutrophils # 3.36 10^3/uL (1.8-7.7); Neutrophils % 54.5 %; Nucleated Red Blood Cells % 0 %; Platelet Count 197 10^3/cmm (157-399); Red Blood Count 4.93 10^6/uL (3.85-5.65); Red Cell Distribution Width 12.8 % (12.1-15.1); White Blood Count 6.18 10^3/uL (3.29-11.43)
[2023-09-29 21:42] LABS: Alanine Aminotransferase 32 U/L (0-41); Albumin Level 3.7 g/dL (3.5-5.2); Alkaline Phosphatase 101 U/L (40-130); Anion Gap 14.1 (5-19); Aspartate Amino Transferase 20 U/L (0-40); Blood Urea Nitrogen 11 mg/dL (8-23); C Reactive Protein 9.9 mg/L (0.0-4.9); Calcium 9.2 mg/dL (8.5-10.5); Carbon Dioxide 26 mmol/L (22-29); Chloride 101 mmol/L (98-107); Globulin 2.9 g/dL (1.3-4.6); Glomerular Filtration Rate 74.5 mL/min (90-130); Glucose 93 mg/dL (65-115); Osmolality Calculated 283 mOsm/kg (285-295); Potassium 4.1 mmol/L (3.5-5.1); Sodium 137 mmol/L (136-145); Total Bilirubin 0.4 mg/dL (0.15-1.2); Total Protein 6.6 g/dL (6.6-8.7)
[2023-09-29 21:43] LABS: Lactic Sepsis W/Reflex 1.2 mmol/L (0.5-2.2)
--- NOTE | 2023-09-30 08:09 | DCPLANNER ---
Message was sent to ortho clinic on 09/30 at 0810. Clinic to contact patient for appt
== END 2023-09-29 22:19 | disposition home or self-care (01) ==
PROVIDERS: Emergency Provider Physician Assistant; PCP Family Medicine
DX: M25.522 Pain in left elbow (principal); G30.9 Alzheimer's disease, unspecified; F02.80 Dementia in other diseases classified elsewhere, unspecified severity, without behavioral disturbance, psychotic disturbance, mood disturbance, and anxiety; Z85.118 Personal history of other malignant neoplasm of bronchus and lung
CPT/HCPCS: 73080; 80053; 83605; 85025; 86140; 87040; 99284

== ENCOUNTER → 2023-10-08 14:13 | Outpatient (BNVA) | payer OTHER, SELFPAY | PROVIDERS: PCP Family Medicine; Visit Provider Nurse Practitioner | DX: M75.22 Bicipital tendinitis, left shoulder | CPT/HCPCS: 99214 ==

== ENCOUNTER → 2023-11-05 15:36 | Outpatient (BNVA) | payer OTHER, SELFPAY | PROVIDERS: PCP Family Medicine; Visit Provider Nurse Practitioner | DX: M75.22 Bicipital tendinitis, left shoulder (principal) | CPT/HCPCS: 73080; 99214 ==

== ENCOUNTER → 2023-11-10 13:11 | Outpatient (BNVA) | payer OTHER, SELFPAY | PROVIDERS: PCP Family Medicine; Visit Provider Orthopaedic Surgery | DX: M43.16 Spondylolisthesis, lumbar region (principal); M79.662 Pain in left lower leg; M79.661 Pain in right lower leg | CPT/HCPCS: 72110; 72120; 99204 ==

== ENCOUNTER 2023-11-10 14:03 | Outpatient (CLI) | payer OTHER, SELFPAY ==
--- NOTE | 2023-11-10 14:00 | USCV_ITS ---
Pablo Saucedo Age: 68 Gender: M : 1955 Exam Date: 11/10/2023 14:46 Ordering Phys: Erlin Antunez DO Technologist: Exam Location: [facility] – [place] Indication: bilat edema PROCEDURES: Venous duplex imaging was performed in bilateral lower extremities. The venous duplex Doppler examination of both lower extremities was performed in the standard fashion. The following venous structures were evaluated: common femoral vein, profunda vein, proximal portion of the greater saphenous vein, superficial femoral vein, and the popliteal vein. FINDINGS: Normal 2-D Doppler and augmentation and compressibility throughout the lower extremity venous structures. Additional imaging through the proximal calf veins also reveals no thrombus. Limited evaluation of the greater saphenous vein is patent with no thrombus. CONCLUSIONS No evidence of right lower extremity DVT. No evidence of left lower extremity DVT. Chiki Rodríguez MD (Electronically Signed) Final Date: 10 November 2023 16:17 S
== END 2023-11-10 14:04 | disposition home or self-care (01) ==
LOC: RAD 14:03
PROVIDERS: PCP Family Medicine; Visit Provider Orthopaedic Surgery
DX: I82.402 Acute embolism and thrombosis of unspecified deep veins of left lower extremity (principal); I82.401 Acute embolism and thrombosis of unspecified deep veins of right lower extremity
CPT/HCPCS: 93970

== ENCOUNTER → 2023-11-16 13:49 | Outpatient (BNVA) | payer OTHER, SELFPAY | PROVIDERS: PCP Family Medicine; Visit Provider Specialist | DX: G30.9 Alzheimer's disease, unspecified (principal); F02.80 Dementia in other diseases classified elsewhere, unspecified severity, without behavioral disturbance, psychotic disturbance, mood disturbance, and anxiety; I67.1 Cerebral aneurysm, nonruptured; M96.1 Postlaminectomy syndrome, not elsewhere classified; Z98.1 Arthrodesis status; M43.16 Spondylolisthesis, lumbar region | CPT/HCPCS: 99214 ==

== ENCOUNTER 2023-11-26 08:52 | Outpatient (CLI) | payer OTHER, SELFPAY ==
--- NOTE | 2023-11-26 09:30 | MR_ITS ---
WS: [id number] MRI LEFT ELBOW WITHOUT CONTRAST. COMPARISON: 11/13/2022, radiograph 11/05/2023 Multiplanar, multisequence imaging is performed without contrast. Large slightly loculated joint effusion at the elbow as was also appreciated on recent radiographs. T his is a loculated effusion with multiple components. Effusion surrounds the distal humerus and also the radial head and olecranon. No marrow edema in the radial head. There is marrow edema involving the olecranon and the proximal ul na. No loss of the cortex. There is additional marrow edema in the medial humeral epicondyle. Normal alignment of the bones at the elbow joint. There is additional soft tissue edema within the distal triceps muscle with the tendon being intact. There is a small amount of edema over the medial elbow closely associated with the common flexor tend on. Abnormal signal in the common flexor tendon along the medial humeral epicondyles. Suspect there i s a partial tear of the ulnar collateral ligament proximally. Biceps tendon and radial brachialis are negative. IMPRESSION: 1. There is been a significant improvement in the diffuse cellulitis as noted on 11/13/2022 MRI. 2. Persistent large loculated joint effusion at the elbow. Slightly decreased in size as compared to the prior study. 3. There is a small amount of marrow edema in the olecranon and proximal ulna and also in the medial humeral epicondyle. 4. Edema throughout the common flexor tendon with a partial tear of the ulnar collateral ligament. T here is a large amount of soft tissue edema surrounding the common flexor tendon. 5. Chronic loculated joint effusion with marrow edema and soft tissue edema as described above. This is a chronic process been overall slightly improved since 11/13/2022. Consider rheumatoid arthritis a nd gout is possible etiologies. Chronic mild septic joint is also a possibility.
== END 2023-11-26 08:53 | disposition home or self-care (01) ==
LOC: RAD 08:53
PROVIDERS: PCP Family Medicine; Visit Provider Nurse Practitioner
DX: L03.114 Cellulitis of left upper limb (principal); M25.422 Effusion, left elbow; S53.442A Ulnar collateral ligament sprain of left elbow, initial encounter; X58.XXXA Exposure to other specified factors, initial encounter
CPT/HCPCS: 73221

== ENCOUNTER → 2023-11-27 10:02 | Outpatient (BNVA) | payer OTHER, SELFPAY | PROVIDERS: PCP Family Medicine; Visit Provider Nurse Practitioner | DX: M25.522 Pain in left elbow (principal); M75.22 Bicipital tendinitis, left shoulder; S53.442A Ulnar collateral ligament sprain of left elbow, initial encounter; M25.422 Effusion, left elbow; X58.XXXA Exposure to other specified factors, initial encounter | CPT/HCPCS: 99213 ==

== ENCOUNTER → 2024-05-17 09:18 | Outpatient (BNVA) | payer OTHER, SELFPAY | PROVIDERS: PCP Family Medicine; Visit Provider Specialist | DX: G30.9 Alzheimer's disease, unspecified (principal); F02.80 Dementia in other diseases classified elsewhere, unspecified severity, without behavioral disturbance, psychotic disturbance, mood disturbance, and anxiety; I67.1 Cerebral aneurysm, nonruptured; M96.1 Postlaminectomy syndrome, not elsewhere classified; Z98.1 Arthrodesis status; M43.16 Spondylolisthesis, lumbar region; R03.0 Elevated blood-pressure reading, without diagnosis of hypertension | CPT/HCPCS: 96116; 99214 ==

== ENCOUNTER 2024-11-18 16:50 | Observation (INO) | payer OTHER, SELFPAY ==
[2024-11-18] VITALS (10 sets, daily range): BP systolic 113–152; BP diastolic 59–100; PULSE 66–76; RESP 16–18; TEMP 36.6–36.8; O2SAT 92–96; BMI 28.1
--- NOTE | 2024-11-18 17:01 | ECG_ITS ---
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 Measurements Intervals [place] Rate: 69 P: 61 NE: 158 QRS: 61 QRSD: 92 T: 70 QT: 423 QTc: 453 Interpretive Statements SINUS RHYTHM NONSPECIFIC T-WAVE ABNORMALITY Compared to ECG 04/27/2022 18:24:13 T-wave abnormality now present Electronically Signed On 11-19-2024 13:18:09 RECORD [employer]EL INTERNSHIP by Henrique Anderson M.D. [email or web address]
--- NOTE | 2024-11-18 17:02 | XRR_ITS ---
PROCEDURE INFORMATION: Exam: XR Chest Exam date and time: 11/18/2024 5:07 PM Age: 69 years old Clinical indication: Other: Weakness TECHNIQUE: Imaging protocol: Radiologic exam of the chest. Views: 1 view. COMPARISON: CT chest con [id number] 11/20/2022 9:51 AM FINDINGS: Lungs: No focal consolidation. Clips project over the right right upper lobe. Hazy opacities in the mid to upper right lung, which may reflect scarring. Recurrent neoplasm would be difficult to exclude. Pleural spaces: No evidence of pneumothorax. No evidence of pleural effusion. Heart/Mediastinum: Cardiomediastinal silhouette is within normal limits. Bones/joints: No evidence of acute osseous abnormality. XR/XR chest 1V portable [id number] IMPRESSION: 1. No acute cardiopulmonary abnormality. 2. Hazy opacities in the mid to upper right lung, which may reflect scarring. Recurrent neoplasm would be difficult to exclude.
--- NOTE | 2024-11-18 17:04 | CTR_ITS ---
PROCEDURE INFORMATION: Exam: CT Head Without Contrast Exam date and time: 11/18/2024 5:14 PM Age: 69 years old Clinical indication: Alteration of consciousness and speech disturbance; Somnolence (drowsiness); Slurred speech; Additional info: Weakness TECHNIQUE: Imaging protocol: Computed tomography of the head without contrast. Radiation optimization: All CT scans at this facility use at least one of these dose optimization techniques: automated exposure control; mA and/or kV adjustment per patient size (includes targeted exams where dose is matched to clinical indication); or iterative reconstruction. COMPARISON: MR angio head wo con [id number] 08/11/2023 3:06 PM RADIATION DOSE METRICS: Total DLP (mGy-cm): 1143.48 FINDINGS: Brain: Sequela of moderate chronic microvascular ischemic changes with periventricular and deep white matter hypoattenuation. Wolfe-white differentiation is otherwise maintained. No evidence of intra-axial or extra-axial hemorrhage. No mass effect or midline shift. Basilar cisterns are patent. Cerebral ventricles: No hydrocephalus. Paranasal sinuses: The visualized paranasal sinuses are well aerated. Mastoid air cells: The visualized mastoids and middle ears are clear. Bones: Calvarium is intact. No evidence of acute fracture. Soft tissues: No gross soft tissue abnormality. CT/CT head wo con* [id number] IMPRESSION: 1. No acute intracranial abnormality.
--- NOTE | 2024-11-18 17:18 | W.ED.DIZZY ---
HPI - Dizziness General: Chief Complaint: Dizziness Stated Complaint: fall - dizziness Time Seen by Provider: 11/18/24 16:53 History of Present Illness: HPI Narrative: 69-year-old man with a history of dementia and a history of lung cancer who presents emergency room with weakness, lightheadedness and a fall. Says he collapsed to the floor and could not get back up. He is a bit of a difficult historian. He currently has no focal motor deficits. No slurred speech. No facial droop. Follows commands appropriately. Does have a bit of an odd affect. Does not want to open his eyes while he speaks. He says he is on hospice. He says it is not for lung cancer. He cannot really explain why he says it just made everything easier. Related Data Home Medications Medication Instructions Recorded Confirmed amlodipine 5 mg tablet 5 mg PO DAILY 03/25/22 05/17/24 albuterol sulfate 90 mcg/actuation 2 puff inhalation Q6H PRN 04/27/22 05/17/24 aerosol inhaler Shortness Of Breath alprazolam 1 mg tablet 1 mg PO BEDTIME 04/27/22 05/17/24 bupropion HCl 300 mg 24 hr tablet, 300 mg PO QAM 04/27/22 05/17/24 extended release hydrocodone 10 mg-acetaminophen 1 tab PO TID PRN Pain 04/27/22 05/17/24 325 mg tablet tiotropium bromide 18 mcg capsule 1 cap inhalation DAILY 04/27/22 05/17/24 with inhalation device (Spiriva with HandiHaler) buprenorphine 15 mcg/hour weekly 1 patch topical ONCE 10/08/23 05/17/24 transdermal patch famotidine 20 mg tablet mg PO 10/08/23 05/17/24 fluticasone propionate 50 intranasal 10/08/23 05/17/24 mcg/actuation nasal spray,suspension metoprolol tartrate 100 mg tablet mg PO 10/08/23 05/17/24 Previous Rx's Medication Instructions Recorded celecoxib 100 mg capsule (Celebrex) 100 mg PO BID #28 caps 11/05/23 prednisone 20 mg tablet 20 mg PO DAILY #15 tabs 12/07/23 galantamine 8 mg tablet 8 mg PO BID #180 tabs 05/17/24 memantine 10 mg tablet 10 mg PO BID 90 days #180 tabs 05/17/24 Allergies Allergy/AdvReac Type Severity Reaction Status Date / Time No Known Allergies Allergy Verified 05/17/24 09:34 Review of Systems Narrative: Constitutional symptoms: Negative except as documented in HPI. Skin symptoms: Negative except as documented in HPI. Eye symptoms: Negative except as documented in HPI. ENMT symptoms: Negative except as documented in HPI. Respiratory symptoms: Negative except as documented in HPI. Cardiovascular symptoms: Negative except as documented in HPI. Gastrointestinal symptoms: Negative except as documented in HPI. Genitourinary symptoms: Negative except as documented in HPI. Musculoskeletal symptoms: Negative except as documented in HPI. Neurologic symptoms: Negative except as documented in HPI. Psychiatric symptoms: Negative except as documented in HPI. Endocrine symptoms: Negative except as documented in HPI. PFSH ED PFSH: Medical History Tear of ulnar collateral ligament of left elbow Effusion of elbow joint, left Biceps tendinitis on left Cellulitis of left elbow Alzheimer disease Mild cognitive impairment with memory loss Neurologic gait disorder History of lung cancer History of Crohn's disease Paresthesia of skin Surgical History History of colon resection x2 History of back surgery 2013 Family History Brother CAD (coronary artery disease) Social History Smoking and tobacco/nicotine status: current every day tobacco/nicotine user (4-5 a day) Alcohol intake: never Substance/Drug Use: never Physical Exam Narrative: EXAM NARRATIVE: General: Alert, no acute distress. Patient is extremely weak and has difficulty standing. Skin: Warm, dry. Head: Normocephalic, atraumatic. Neck: Supple, trachea midline. Eye: Extraocular movements are intact. Ears, nose, mouth and throat: mucosa moist. Cardiovascular: Regular, Normal peripheral perfusion. Respiratory: Lungs are clear to auscultation, respirations are non-labored, breath sounds are equal, Symmetrical chest wall expansion. Gastrointestinal: Soft, Nontender, Non distended Musculoskeletal: Normal ROM, no deformity. Neurological: Alert, No focal neurological deficit observed. Psychiatric: Cooperative, odd affect Course Vital Signs: Vital signs: Vital Signs Temperature 97.8 F 11/18/24 16:52 Pulse Rate 76 11/18/24 20:30 Respiratory Rate 16 11/18/24 20:30 Blood Pressure 131/81 11/18/24 20:30 Pulse Oximetry 96 11/18/24 20:30 Oxygen Delivery Me thod Room Air 11/18/24 16:52 MDM - Dizziness Medical Decision Making Medical decision making: Differential diagnosis for patient presenting with generalized weakness including but not limited to and based on the above HPI, review of systems and physical exam: Sepsis. Dehydration. Renal failure. Electrolyte abnormalities. Anemia. Congestive heart failure. Hypotension. Coronary syndrome. Hepatitis. Cirrhosis. Infections such as pneumonia, urinary tract infection, Tick bourne illness, Cellulitis, Viral infections including influenza and Covid-19. Workup: labwork and lab/exam driven imaging ordered to evaluate, rule in and rule out above pathologies. Patient is nonfocal, however he is quite weak when he tries to stand. He does not have a typical stroke if he does have 1 and there is no reliable last known well time. He says a couple of hours ago but he has dementia and had initially told EMS that it was early this morning when symptoms that started otherwise do not think there is a stroke EKG: Time 1701. Rate 69. Normal sinus rhythm, nonspecific ST abnormality, no ectopy, normal PA & QRS intervals, This was reviewed and interpreted by myself the ER physician at 1705 CT head: No acute intracranial process. no intracranial hemorrhage, no evidence of infarct. no evidence of acute fracture.This was reviewed and interpreted by myself the ER physician. Chest x-ray: No acute cardiopulmonary process. There are some hazy opacities in the mid to right upper lung which may reflect scarring. However patient does report neoplasm. This may be his known lung cancer. This was reviewed and interpreted by myself the emergency room physician. I also reviewed the radiology report. Lab Review: Laboratory results were reviewed and interpreted by myself the emergency room physician. Mild leukocytosis. No anemia. No renal failure. Potassium was a little low at 3.1. Flu COVID and RSV are negative. Liver enzymes are normal. Urinalysis is negative for infection. This was an In-N-Out cath and I think that is likely what the red cells are for. He does not have any flank pain or concerns for obstructive uropathy. No renal failure. Urine is a bit concentrated which might indicate dehydration I reviewed the patient's medical record. Consultation: I spoke with , Who is on-call for the hospitalist service who agrees to admission observation. Patient lives at home. Too weak to walk. Appears somewhat dehydrated. Reexamination: Patient remained stable. No increased work of breathing. No altered mental status. No focal motor deficits. Patient still remains too weak to stand. Unclear etiology of why. Assessment and plan: Generalized weakness Dehydration Fall Dementia Hospice patient ?Family and patient want to rescind hospice for admission as needed. He tells me he is on hospice because it makes things easier. -I discussed the patient with the hospitalist on-call who is admitting the patient. - Discussed findings and plan with patient. Answered any questions. - All laboratory values were reviewed and interpreted personally by myself, the ER physician - All imaging was reviewed and interpreted personally by myself, the ER physician. - Evaluation and treatment of this problem were appropriate in the emergency setting Lab Data 11/18/24 18:06 11/18/24 18:06 Radiology Impressions Chest X-Ray 11/18/24 17:02 IMPRESSION: 1. No acute cardiopulmonary abnormality. 2. Hazy opacities in the mid to upper right lung, which may reflect scarring. Recurrent neoplasm would be difficult to exclude. Head CT 11/18/24 17:04 IMPRESSION: 1. No acute intracranial abnormality. Laboratory Results WBC 11.97 10^3/uL (3.29-11.43) H 11/18/24 18:06 RBC 5.16 10^6/uL (3.85-5.65) 11/18/24 18:06 Hgb 15.50 g/dL (11.27-16.99) 11/18/24 18:06 Hct 47.3 % (37-53) 11/18/24 18:06 MCV 91.7 fl (82-101) 11/18/24 18:06 MCH 30.0 pg (27-33) 11/18/24 18:06 MCHC 32.8 g/dL (30-55) 11/18/24 18:06 RDW 14.0 % (12.1-15.1) 11/18/24 18:06 Plt Count 141 10^3/cmm (157-399) L 11/18/24 18:06 MPV 10.4 fL (7.4-10.4) 11/18/24 18:06 Neut % (Auto) 76.0 % 11/18/24 18:06 Lymph % (Auto) 12.9 % 11/18/24 18:06 [place] % (Auto) 9.4 % 11/18/24 18:06 Eos % (Auto) 0.7 % 11/18/24 18:06 Baso % (Auto) 0.3 % 11/18/24 18:06 Neut # (Auto) 9.11 10^3/uL (1.8-7.7) H 11/18/24 18:06 Lymph # (Auto) 1.6 10^3/uL (0.8-4.8) 11/18/24 18:06 [place] # (Auto) 1.1 10^3/uL (0.2-0.9) H 11/18/24 18:06 Eos # (Auto) 0.1 10^3/uL (0.0-0.8) 11/18/24 18:06 Baso # (Auto) 0.0 10^3/uL (0.0-0.1) 11/18/24 18:06 Nucleated RBC % (auto) 0 % 11/18/24 18:06 Nucleated RBCs # 0.0 /100WBC 11/18/24 18:06 Sodium 139 mmol/L (136-145) 11/18/24 18:06 Potassium 3.1 mmol/L (3.5-5.1) L 11/18/24 18:06 Chloride 95 mmol/L (98-107) L 11/18/24 18:06 Carbon Dioxide 36 mmol/L (22-29) H 11/18/24 18:06 Anion Gap 11.1 (5-19) 11/18/24 18:06 BUN 14 mg/dL (8-23) 11/18/24 18:06 Creatinine 0.8 mg/dL (0.7-1.2) 11/18/24 18:06 GFR Calculation 95.8 mL/min (90-130) 11/18/24 18:06 Glucose 91 mg/dL (65-115) 11/18/24 18:06 Calculated Osmolality 288 mOsm/kg (285-295) 11/18/24 18:06 Lactic Acid 1.1 mmol/L (0.5-2.2) 11/18/24 18:09 Calcium 9.0 mg/dL (8.5-10.5) 11/18/24 18:06 Total Bilirubin 1.5 mg/dL (0.15-1.2) H 11/18/24 18:06 AST 23 U/L (0-40) 11/18/24 18:06 ALT 50 U/L (0-41) H 11/18/24 18:06 Alkaline Phosphatase 106 U/L (40-130) 11/18/24 18:06 Troponin T Baseline 34 ng/L (0-15) H 11/18/24 18:09 C-Reactive Protein 94.5 mg/L (0.0-4.9) H 11/18/24 18:06 Total Protein 6.3 g/dL (6.6-8.7) L 11/18/24 18:06 Albumin 3.9 g/dL (3.5-5.2) 11/18/24 18:06 Globulin 2.4 g/dL (1.3-4.6) 11/18/24 18:06 Urine Color [place] (Yellow) A 11/18/24 19:00 Urine Appearance Clear (CLEAR) 11/18/24 19:00 Urine pH 7.0 (5-7) 11/18/24 19:00 Ur Specific [place] 1.024 (1.005-1.030) 11/18/24 19:00 Urine Protein 1+ (Negative) A 11/18/24 19:00 Urine Glucose (UA) Negative (Normal) 11/18/24 19:00 Urine Ketones 1+ (Negative) H 11/18/24 19:00 Urine Blood 2+ (Negative) A 11/18/24 19:00 Urine Nitrate Negative (Negative) 11/18/24 19:00 Urine Bilirubin 1+ (Negative) H 11/18/24 19:00 Urine Urobilinogen 2.0 mg/dL (Negative) H 11/18/24 19:00 Ur Leukocyte Esterase Trace (Negative) A 11/18/24 19:00 Urine RBC 21-50 /hpf (0-2) H 11/18/24 19:00 Urine WBC 0-5 /hpf (0-5) 11/18/24 19:00 Ur Squamous Epith Cells 0-5 /hpf (0-5) 11/18/24 19:00 Amorphous Sediment Not Reportable 11/18/24 19:00 Urine Bacteria None seen /hpf (NONE) 11/18/24 19:00 Hyaline Casts 0.81 /lpf 11/18/24 19:00 Ethyl Alcohol < 10 mg/dL (0-10) 11/18/24 18:06 Coronavirus (PCR) Negative (Negative) 11/18/24 17:12 Influenza A (PCR) Negative (Negative) 11/18/24 17:12 Influenza Type B (PCR) Negative (Negative) 11/18/24 17:12 RSV (PCR) Negative (Negative) 11/18/24 17:12 All radiology interpretation(s) finalized by discharge Discharge Plan Discharge Patient Disposition: Placed in Observation Clinical Impression: Weakness, Alzheimer disease, Dehydration, Fall Coding Level of Care Code ED [employer] Manufacturing Consultant for Paige Phipps
[2024-11-18 18:05] LABS: Influenza A NEGATIVE (Negative); Influenza B NEGATIVE (Negative); Respiratory Syncytial Virus Ce NEGATIVE (Negative); SARS-CoV-2 PCR NEGATIVE (Negative)
[2024-11-18 18:20] LABS: Basophils % 0.3 %; Eosinophils # 0.1 10^3/uL (0.0-0.8); Eosinophils % 0.7 %; Hematocrit 47.3 % (37-53); Lymphocytes # 1.6 10^3/uL (0.8-4.8); Lymphocytes % 12.9 %; Mean Corpuscular HGB Conc 32.8 g/dL (30-55); Mean Corpuscular Volume 91.7 fl (82-101); Mean Platelet Volume 10.4 fL (7.4-10.4); Monocytes # 1.1 10^3/uL (0.2-0.9); Monocytes % 9.4 %; Neutrophils # 9.11 10^3/uL (1.8-7.7); Nucleated Red Blood Cells % 0 %; Platelet Count 141 10^3/cmm (157-399); Red Blood Count 5.16 10^6/uL (3.85-5.65); White Blood Count 11.97 10^3/uL (3.29-11.43)
[2024-11-18 18:32] LABS: Troponin(5th) Baseline 34 ng/L (0-15)
[2024-11-18 18:34] LABS: Lactic Sepsis W/Reflex 1.1 mmol/L (0.5-2.2)
[2024-11-18 18:34] LABS: Alanine Aminotransferase 50 U/L (0-41); Albumin Level 3.9 g/dL (3.5-5.2); Alkaline Phosphatase 106 U/L (40-130); Blood Urea Nitrogen 14 mg/dL (8-23); C Reactive Protein 94.5 mg/L (0.0-4.9); Carbon Dioxide 36 mmol/L (22-29); Chloride 95 mmol/L (98-107); Globulin 2.4 g/dL (1.3-4.6); Glomerular Filtration Rate 95.8 mL/min (90-130); Glucose 91 mg/dL (65-115); Osmolality Calculated 288 mOsm/kg (285-295); Sodium 139 mmol/L (136-145); Total Bilirubin 1.5 mg/dL (0.15-1.2); Total Protein 6.3 g/dL (6.6-8.7)
[2024-11-18 18:36] LABS: Alcohol Level < 10 mg/dL (0-10)
[2024-11-18 18:37] LABS: Anion Gap 11.1 (5-19); Aspartate Amino Transferase 23 U/L (0-40); Potassium 3.1 mmol/L (3.5-5.1)
--- NOTE | 2024-11-18 19:03 | ECG_ITS ---
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 Measurements Intervals [place] Rate: 78 P: 61 SC: 147 QRS: 52 QRSD: 91 T: 60 QT: 406 QTc: 464 Interpretive Statements SINUS RHYTHM NONSPECIFIC T-WAVE ABNORMALITY Compared to ECG 11/19/2024 05:34:54 T-wave abnormality now present Electronically Signed On 11-24-2024 22:25:47 HOT MILL OPERATOR by Henrique Anderson M.D. [email or web address]
[2024-11-18 19:05] LABS: Bilirubin Urine 1+ (Negative); Blood Urine 2+ (Negative); Glucose Urine UA Negative (Normal); Ketones Urine 1+ (Negative); Leukocyte Esterase Urine Trace (Negative); Nitrate Urine Negative (Negative); Protein Urine 1+ (Negative); Specific Gravity, Urine 1.024 (1.005-1.030); Urine Appearance Clear (CLEAR)
[2024-11-18 19:09] LABS: Bacteria Urine None Seen /hpf; Hyaline Casts Urine 0.81 /lpf; RBC Urine 21-50 /hpf (0-2); Squamous Epithelial Cell Urine 0-5 /hpf (0-5); WBC Urine 0-5 /hpf (0-5)
[2024-11-18 19:28] LABS: Urine Color Orange (Yellow)
[2024-11-18 19:29] LABS: Add Urine Culture? Yes
[2024-11-18] MEDS: sodium chloride 0.9% 1,000 ML 999 ML IV (20:14)
[2024-11-18 20:35] LABS: Troponin 5 2HR 31.07 ng/L (0-15)
[2024-11-18 20:38] LABS: Troponin 5 2HR Delta -2.93 ABS# (0-10)
--- NOTE | 2024-11-18 22:55 | P.HP_ITS ---
Providers/Chief Complaint 2 Admitting Physician: Fazal Sorensen MD Primary Care Provider: Howard Munson DO Chief Complaint: fall - dizziness History of Present Illness Pablo Saucedo is a 69 year old male presented after sustaining a fall at home. Patient is stating that he is on hospice care and lives alone at home. Patient has history of dementia, Crohn's disease, follows up with [place] oncologist for his right upper lobe lung cancer status post lobectomy. Patient when asked about hospice care he said his goofy brother put him on hospice. Patient is not a very reliable historian stating that he cooks for himself but not able to tell me what he took in the morning. Patient is stating that he has a recurrent falls, and within 24 hours he has fallen twice, he is denying chest pain, syncopal events. Seizure related activity. Patient was asked about prison placement: He is stating that he would like to think about it and let us know in the morning. Patient has seen Dr. Wagoner for his back pain goes to the pain clinic in [place]. Patient has been experiencing back pain for quite some time, not as mobile since back surgery 2014. Patient is stating that main reason for his arrival in the ER is to get evaluated because of recurrent falls. He has mild leukocytosis, no active source of infection, respiratory panel is negative. Mild hypokalemia. EKG not showing any ischemic or infarctive changes, troponin trending down, Review of Systems 2 Const: Denies: fever(s) Eyes: Denies: change in vision ENMT: Denies: throat pain Card: Denies: chest pain Resp: Denies: dyspnea GI: Denies: abdominal pain Musc: Reports: back pain Medications/Allergies Home Medications Medication Instructions Recorded Confirmed Last Taken Type amlodipine 5 mg tablet 5 mg PO DAILY 03/25/22 05/17/24 10/29/22 07:00 History albuterol sulfate 90 mcg/actuation 2 puff inhalation Q6H PRN 04/27/22 05/17/24 Unknown History aerosol inhaler Shortness Of Breath alprazolam 1 mg tablet 1 mg PO BEDTIME 04/27/22 05/17/24 04/26/22 History bupropion HCl 300 mg 24 hr tablet, 300 mg PO QAM 04/27/22 05/17/2422 History extended release hydrocodone 10 mg-acetaminophen 1 tab PO TID PRN Pain 04/27/22 05/17/24 04/27/22 History 325 mg tablet tiotropium bromide 18 mcg capsule 1 cap inhalation DAILY 04/27/22 05/17/24 04/27/22 History with inhalation device (Spiriva with HandiHaler) buprenorphine 15 mcg/hour weekly 1 patch topical ONCE 10/08/23 05/17/24 Unknown History transdermal patch famotidine 20 mg tablet mg PO 10/08/23 05/17/24 Unknown History fluticasone propionate 50 intranasal 10/08/23 05/17/24 Unknown History mcg/actuation nasal spray,suspension metoprolol tartrate 100 mg tablet mg PO 10/08/23 05/17/24 Unknown History celecoxib 100 mg capsule (Celebrex) 100 mg PO BID #28 caps 11/05/23 05/17/24 Unknown Rx prednisone 20 mg tablet 20 mg PO DAILY #15 tabs 12/07/23 05/17/24 Unknown Rx galantamine 8 mg tablet 8 mg PO BID #180 tabs 05/17/24 05/17/24 Unknown Rx memantine 10 mg tablet 10 mg PO BID 90 days #180 tabs 05/17/24 05/17/24 Unknown Rx Allergies Allergy/AdvReac Type Severity Reaction Status Date / Time No Known Allergies Allergy Verified 05/17/24 09:34 PFSH Acute 2 PFSH: Medical History Tear of ulnar collateral ligament of left elbow Effusion of elbow joint, left Biceps tendinitis on left Cellulitis of left elbow Alzheimer disease Mild cognitive impairment with memory loss Neurologic gait disorder History of lung cancer History of Crohn's disease Paresthesia of skin Surgical History History of colon resection x2 History of back surgery 2013 Family History Brother CAD (coronary artery disease) Social History Smoking and tobacco/nicotine status: current every day tobacco/nicotine user (4-5 a day) Alcohol intake: never Substance/Drug Use: never Vitals/I&O/Wt Last Vital Signs Temp 98.3 F 11/18/24 21:37 Pulse 71 11/18/24 21:37 Resp 18 11/18/24 21:37 BP 152/88 11/18/24 21:37 Pulse Ox 92 11/18/24 21:37 O2 Del Method Room Air 11/18/24 22:03 11/18/24 11/18/24 11/18/24 06:59 14:59 22:59 Intake Total 1000 / 1000 Balance 1000 / 1000 Weight last 48 hrs Weight 81.306 kg Weight 81.647 kg Physical Exam 2 Narrative: Pleasant and cooperative No active focal deficit GCS 15 Bruises on lower extremity noted No active sign of heart failure Currently on room air Pleasant and cooperative Hemodynamically stable GCS 15 On active distress Abdomen soft Awake and alert AO x 4 Data 11/18/24 18:06 11/18/24 18:06 Micro: Microbiology 11/18/24 18:09 Blood Culture - Preliminary Blood SPECIMEN COLLECTED 11/18/24 18:06 Blood Culture - Preliminary Blood SPECIMEN COLLECTED A&P Assessment and plan (1) Dehydration: (2) Fall: (3) Mild cognitive impairment with memory loss: (4) Alzheimer disease: (5) History of lumbar fusion: (6) Weakness: Plan Recurrent falls History of back pain status post lumbar fusion No active signs of cauda equina Will request physical therapy Patient lives alone stating that he was on hospice secondary to lung cancer however he has had lobectomy done and follows up with oncologist in [place] Has a history of dementia, Check B12, alcohol level, EKG unremarkable head CT unremarkable No signs of UTI he does have hematuria with straight cath Troponin trending down Mild hypokalemia and leukocytosis. No active source of infection. Patient is not sure whether he will opt for prison placement He will update us in the morning Full code for now Patient is not exactly sure why he is on hospice stating that his brother has put him on hospice, he would know more Will use opioids along bowel regimen Replenish potassium Attestations 2 Medical Necessity Statement*: Anticipating discharge within 48 hours Diagnoses Dehydration E86.0 Fall W19.XXXA Mild cognitive impairment with memory loss G31.84 Alzheimer disease G30.9; F02.80 History of lumbar fusion Z98.1 Weakness R53.1
--- NOTE | 2024-11-18 23:03 | ECG_ITS ---
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 Measurements Intervals [place] Rate: 72 P: 60 [place]: 153 QRS: 50 QRSD: 95 T: 61 QT: 413 QTc: 454 Interpretive Statements SINUS RHYTHM Compared to ECG 11/18/2024 17:01:54 T-wave abnormality no longer present Electronically Signed On 11-19-2024 13:28:45 CLIPMAN by Henrique Anderson M.D. [email or web address]
[2024-11-18] MEDS: enoxaparin 40 mg/0.4 mL Syringe SUBCUT (23:27)
[2024-11-19 00:57] LABS: Troponin 5 6HR 31.02 ng/L (0-15)
[2024-11-19 00:58] LABS: Troponin 5 6HR Delta -2.98 ng/L (0-12)
[2024-11-19 03:55] LABS: Anion Gap 11.5 (5-19); Blood Urea Nitrogen 11 mg/dL (8-23); Calcium 8.1 mg/dL (8.5-10.5); Carbon Dioxide 30 mmol/L (22-29); Chloride 95 mmol/L (98-107); Creatinine Clr Calc Pharmacy 88.9748; Glomerular Filtration Rate 111.8 mL/min (90-130); Glucose 95 mg/dL (65-115); Osmolality Calculated 277 mOsm/kg (285-295); Phosphorus 1.8 mg/dL (2.5-4.5); Sodium 134 mmol/L (136-145)
[2024-11-19 04:00] VITALS: BP 151/63; PULSE 76; RESP 18; TEMP 36.7; O2SAT 94
[2024-11-19 04:05] LABS: Potassium 2.5 mmol/L (3.5-5.1)
[2024-11-19] MEDS: potassium chloride ER 20 mEq Tablet 40 MEQ PO ×3 (04:26→17:39)
[2024-11-19 05:06] LABS: Vitamin B12 252 pg/mL (232-1245)
[2024-11-19] MEDS: sennosides-docusate Tablet 2 TAB PO ×2 (07:42→17:39)
[2024-11-19 08:00] VITALS: BP 153/74; PULSE 79; RESP 15; TEMP 36.8; O2SAT 95
--- NOTE | 2024-11-19 11:12 | PC.CHAP ---
Pastoral Care Encounter/Spiritual Assessment Type of Contact [] Declined grade school teacher visit [] Patient/Family/Request visit [] Outpatient visit [] Follow-up visit [] Physician referral [] Code/Alert [x] Routine visit [] Staff referral [] Actively dying [] Patient sleeping [] Family support [] [] Out of room [] Palliative care [] [] Receiving care in room [] Pre-surgical visit [] Trauma [] Long length of stay [] ICU visit [] Other: Relational/Emotional Strength [x] Patient feels connected with others/family/visitors/staff [x] Distress [] Loneliness/isolation [] Abandonment Spirituality of Patient [x] Person of Miri [] Attends Anabaptism of their Miri [x] Believes in Prayer [] Reads Bible or Taoist materials [] There are Spiritual issues to be addressed Tower Erector Interventions [x] Prayer [x] Active listening [x] Non-anxious presence [] Spiritual/emotional support [] Crisis/trauma care [] Spiritual counseling [] Bereavement support [] Provided bereavement packet [] Provided Bible/devotional materials [] Provided toy/stuffed animal, coloring book to patient or family member [] Provided Communion [] Anointing/[place] [] Salvation [] Completed spiritual assessment [] Other: Impact on Illness or Injury [] Angry [] Fearful [] Anxious [] Often cries [] Exhaustion [] Unable to work [] Unable to attend yazidism [] Unable to walk/stand [] Unable to read [] Unable to drive [] Unable to eat/drink [] Unable to sleep [] Unable to be with family [] Patient intubated [] Other: Hallucinations Summary Prayer, Was in and out of presentence. Asked if i was there to look at roof, then know we were at the hospital then tole me to go ahead and fix it, it needs the repair. Time spent with patient 40 min
[2024-11-19 12:00] VITALS: BP 135/84; PULSE 77; RESP 18; TEMP 36.6; O2SAT 99
--- NOTE | 2024-11-19 15:38 | P.PN_ITS ---
Subjective 2 Subjective: Seen this morning. Patient resting comfortably in bed. Is alert oriented x 3. Somewhat of a poor historian. He answers some questions but not all. States overall he feels slightly better. Vitals/I&O/Wt Last Vital Signs Temp 98 F 11/19/24 12:00 Pulse 77 11/19/24 12:00 Resp 18 11/19/24 12:00 BP 135/84 11/19/24 12:00 Pulse Ox 99 11/19/24 12:00 O2 Del Method Room Air 11/19/24 12:00 Weight last 48 hrs Weight 80.649 kg Weight 81.306 kg Weight 81.647 kg Physical Exam 2 Narrative: Pleasant and cooperative No active focal deficit GCS 15 Bruises on lower extremity noted No active sign of heart failure Currently on room air Pleasant and cooperative Hemodynamically stable GCS 15 On active distress Abdomen soft Awake and alert AO x 4 Data 11/18/24 18:06 11/19/24 02:35 Micro: Microbiology 11/18/24 18:09 Blood Culture - Preliminary Blood SPECIMEN COLLECTED 11/18/24 18:06 Blood Culture - Preliminary Blood SPECIMEN COLLECTED A&P Assessment and plan (1) Dehydration: (2) Fall: (3) Mild cognitive impairment with memory loss: (4) Alzheimer disease: (5) History of lumbar fusion: (6) Weakness: Plan Recurrent falls History of back pain status post lumbar fusion No active signs of cauda equina Will request physical therapy Patient lives alone stating that he was on hospice secondary to lung cancer however he has had lobectomy done and follows up with oncologist in [place] Has a history of dementia, Check B12, alcohol level, EKG unremarkable head CT unremarkable No signs of UTI he does have hematuria with straight cath Troponin trending down Mild hypokalemia and leukocytosis. No active source of infection. Patient is not sure whether he will opt for care home placement He will update us in the morning Full code for now Patient is not exactly sure why he is on hospice stating that his brother has put him on hospice, he would know more Will use opioids along bowel regimen Replenish potassium 11/19/2024 -Awaiting physical therapy evaluation. ? Continue management as per assessment and plan at this time. ? Will have to obtain collateral information from family. ? We will have to pursue safe discharge planning. Patient does have history of dementia and does live alone. ? He is unsure if he would like to go to a care home at this time. Attestations 2 Medical Necessity Statement*: Anticipating discharge within 48 hours Diagnoses Dehydration E86.0 Fall W19.XXXA Mild cognitive impairment with memory loss G31.84 Alzheimer disease G30.9; F02.80 History of lumbar fusion Z98.1 Weakness R53.1
[2024-11-19 16:00] VITALS: BP 156/90; PULSE 56; RESP 18; TEMP 37.3; O2SAT 95
[2024-11-19 16:06] LABS: Blood Urea Nitrogen 10 mg/dL (8-23); Calcium 8.2 mg/dL (8.5-10.5); Carbon Dioxide 30 mmol/L (22-29); Chloride 94 mmol/L (98-107); Creatinine Clr Calc Pharmacy 88.6509; Glomerular Filtration Rate 95.8 mL/min (90-130); Glucose 95 mg/dL (65-115); Osmolality Calculated 273 mOsm/kg (285-295); Sodium 132 mmol/L (136-145)
[2024-11-19] MEDS: memantine 5 mg tablet 10 MG PO (17:39)
[2024-11-19 19:55] VITALS: BP 112/63; PULSE 75; RESP 18; TEMP 36.7; O2SAT 93
[2024-11-19] MEDS: enoxaparin 40 mg/0.4 mL Syringe SUBCUT (21:54)
[2024-11-20] VITALS (9 sets, daily range): BP systolic 127–153; BP diastolic 63–87; PULSE 67–88; RESP 17–20; TEMP 36.6–36.9; O2SAT 93–97
[2024-11-20 03:36] LABS: Basophils % 0.3 %; Eosinophils % 0.3 %; Hematocrit 41.5 % (37-53); Lymphocytes # 1.2 10^3/uL (0.8-4.8); Lymphocytes % 11.4 %; Mean Corpuscular HGB Conc 32.5 g/dL (30-55); Mean Corpuscular Hemoglobin 30.1 pg (27-33); Mean Corpuscular Volume 92.4 fl (82-101); Mean Platelet Volume 10.7 fL (7.4-10.4); Monocytes % 10.2 %; Neutrophils # 7.79 10^3/uL (1.8-7.7); Neutrophils % 76.8 %; Nucleated Red Blood Cells % 0 %; Platelet Count 122 10^3/cmm (157-399); Red Blood Count 4.49 10^6/uL (3.85-5.65); Red Cell Distribution Width 13.7 % (12.1-15.1); White Blood Count 10.13 10^3/uL (3.29-11.43)
[2024-11-20 03:55] LABS: Anion Gap 15.8 (5-19); Blood Urea Nitrogen 8 mg/dL (8-23); Calcium 8.4 mg/dL (8.5-10.5); Carbon Dioxide 29 mmol/L (22-29); Chloride 96 mmol/L (98-107); Creatinine Clr Calc Pharmacy 88.6509; Glomerular Filtration Rate 111.8 mL/min (90-130); Glucose 96 mg/dL (65-115); Osmolality Calculated 284 mOsm/kg (285-295); Sodium 138 mmol/L (136-145)
[2024-11-20 04:11] LABS: Potassium 2.8 mmol/L (3.5-5.1)
[2024-11-20] MEDS: memantine 5 mg tablet 10 MG PO ×2 (08:38→17:37)
[2024-11-20] MEDS: lidocaine 1% 5 ML in potassium chloride premix 100 ML 26.25 ML IV (08:38)
[2024-11-20] MEDS: metoprolol tartrate 50 mg Tablet 100 MG PO (08:38)
[2024-11-20] MEDS: potassium chloride ER 20 mEq Tablet 40 MEQ PO ×2 (08:38→17:37)
[2024-11-20] MEDS: amlodipine 5 mg Tablet PO (08:38)
--- NOTE | 2024-11-20 13:37 | P.PN_ITS ---
Subjective 2 Subjective: Seen this morning. Patient has been having diarrhea. He states he has a history of Crohn's disease. Generally he is a poor historian however does state he has Crohn's disease. He has been quite confused since admission. Patient's son did call the hospital and told nursing staff that patient's mental status is not at baseline at this time. Potassium is down to 2.8 again. Vitals/I&O/Wt Last Vital Signs Temp 97.8 F 11/20/24 10:54 Pulse 88 11/20/24 11:01 Resp 18 11/20/24 11:01 BP 127/63 11/20/24 10:54 Pulse Ox 93 11/20/24 11:01 O2 Del Method Room Air 11/20/24 11:01 11/19/24 11/20/24 11/20/24 22:59 06:59 14:59 Intake Total 120 / 120 585 / 585 Output Total 100 / 100 Balance 120 / 120 485 / 485 Weight last 48 hrs Weight 80.24 kg Weight 80.649 kg Weight 81.306 kg Weight 81.647 kg Physical Exam 2 Narrative: Pleasant and cooperative No active focal deficit Bruises on lower extremity noted No active sign of heart failure Currently on room air Pleasant and cooperative Hemodynamically stable On active distress Abdomen soft Awake and alert AO x 2 Data 11/20/24 02:28 11/20/24 02:28 Micro: Microbiology 11/18/24 19:00 Urine Culture - Final Urine,Clean Catch 11/18/24 18:09 Blood Culture - Preliminary Blood NEGATIVE TO DATE 11/18/24 18:06 Blood Culture - Preliminary Blood NEGATIVE TO DATE A&P Assessment and plan (1) Dehydration: (2) Fall: (3) Mild cognitive impairment with memory loss: (4) Alzheimer disease: (5) History of lumbar fusion: (6) Weakness: Plan Recurrent falls History of back pain status post lumbar fusion No active signs of cauda equina Will request physical therapy Patient lives alone stating that he was on hospice secondary to lung cancer however he has had lobectomy done and follows up with oncologist in [place] Has a history of dementia, Check B12, alcohol level, EKG unremarkable head CT unremarkable No signs of UTI he does have hematuria with straight cath Troponin trending down Mild hypokalemia and leukocytosis. No active source of infection. Patient is not sure whether he will opt for custodial placement He will update us in the morning Full code for now Patient is not exactly sure why he is on hospice stating that his brother has put him on hospice, he would know more Will use opioids along bowel regimen Replenish potassium 11/19/2024 -Awaiting physical therapy evaluation. ? Continue management as per assessment and plan at this time. ? Will have to obtain collateral information from family. ? We will have to pursue safe discharge planning. Patient does have history of dementia and does live alone. ? He is unsure if he would like to go to a custodial at this time. 11/20/2024 Patient is potentially having a Crohn's disease flare. Testing 2.8 again. Order potassium 40 twice daily orally. CRP 107 yesterday Will order stool studies however this may be secondary to Crohn's. Patient states that he has had this multiple times before. He is unable to provide more history regarding details of his Crohn's disease. ? Before starting steroids however I will go ahead and do a CT abdomen pelvis. He has also been on a bowel regimen which could be secondary to his diarrhea. He is a poor historian. Home medications have not been confirmed yet. Continue amlodipine, memantine, metoprolol to tartrate Patient does have altered mental status ? Will check urine culture Blood cultures negative to date Mild hypokalemia leukocytosis might be secondary to his diarrhea and Crohn's flare. Will stop his bowel regimen at this time. Will monitor off bowel regimen and off steroids at this time. However if diarrhea does not continue to improve may consider treating as a Crohn's flare. I will monitor off antibiotics at this time. Attestations 2 Medical Necessity Statement*: Patient having diarrhea and active hypokalemia. Will need further workup. Possibly Crohn's flare. Diagnoses Dehydration E86.0 Fall W19.XXXA Mild cognitive impairment with memory loss G31.84 Alzheimer disease G30.9; F02.80 History of lumbar fusion Z98.1 Weakness R53.1
--- NOTE | 2024-11-20 13:44 | CTR_ITS ---
PROCEDURE INFORMATION: Exam: CT Abdomen And Pelvis With Contrast Exam date and time: 11/20/2024 2:07 PM Age: 69 years old Clinical indication: Other: Diarrhea TECHNIQUE: Imaging protocol: Computed tomography of the abdomen and pelvis with contrast. Radiation optimization: All CT scans at this facility use at least one of these dose optimization techniques: automated exposure control; mA and/or kV adjustment per patient size (includes targeted exams where dose is matched to clinical indication); or iterative reconstruction. Contrast material: OMNIPAQUE 350; Contrast volume: 100 ml; Contrast route: INTRAVENOUS (IV); COMPARISON: MR lumbar spine wo con* [id number] 08/11/2023 3:18 PM RADIATION DOSE METRICS: Total DLP (mGy-cm): 756.56 FINDINGS: Lungs: Mild basilar scar versus atelectasis. Pleural spaces: Trace bilateral pleural effusions. Liver: Features of inhomogeneous hepatic steatosis noted. Gallbladder and biliary ducts: Prior cholecystectomy. No biliary dilatation. Pancreas: No significant pancreatic pathology. Spleen: No significant splenic pathology. Adrenal glands: Right adrenal gland unremarkable. Indeterminate 9 mm left adrenal nodule demonstrating unchanged size and low noncontrast attenuation on CT chest 11/20/2022 consistent with adenoma. Kidneys and ureters: No significant pathology. Stomach and bowel: Liquid stool extending to the rectum. No evidence of bowel obstruction or other bowel pathology. Appendix: Suture line associated with the cecum suggesting prior appendectomy; no abnormal appendix visualized. Intraperitoneal space: No ascites. Vasculature: No abdominal aortic aneurysm. Lymph nodes: No evidence of lymphadenopathy. Urinary bladder: Bladder wall appears thickened although this is accentuated by incomplete distention. Reproductive: Moderate prostatomegaly. Bones/joints: Prior L5-S1 posterior hardware fusion. Soft tissues: Abdominal wall mesh anteriorly. Small bilateral fat containing inguinal hernias. CT/CT abdomen pelvis w con* [id number] IMPRESSION: 1. Liquid stool extending to the rectum without additional bowel pathology suggesting infectious/inflammatory pathology. 2. Prostatomegaly with abnormal urinary bladder wall consistent with outlet obstruction. 3. Minor findings noted above including stable 9 mm left adrenal adenoma and hepatic steatosis.
[2024-11-20] MEDS: iohexol 350 mg/mL 500 mL Btl (per mL) IV (14:14)
--- NOTE | 2024-11-20 17:13 | PC.PHAR ---
Patient was not sure of medications. [facility] ,before seeing patient .I spoke to the nurse Thursday and she wasn't sure who to contact for medications. I spoke to her Thursday and she said to try the son. I contacted his son that went to Patient's home and found his medications Son called back with what he found and I verified it with the list . Thursday we should have the [facility] list to verify other meds.
[2024-11-20] MEDS: morphine IR 15 mg Tablet PO (17:36)
[2024-11-20] MEDS: methylPREDNISolone sod succ 40 mg/mL INJ IVP (17:37)
[2024-11-20] MEDS: piperacillin-tazobactam 3.375 GM in sodium chloride 0.9% (plus) 50 ML IV ×2 (17:39→22:10)
[2024-11-20] MEDS: OLANZapine 10 mg VIAL IM (22:11)
[2024-11-20] MEDS: enoxaparin 40 mg/0.4 mL Syringe SUBCUT (22:11)
[2024-11-20] MEDS: water for injection-sterile 10 ML 2 ML (22:11)
[2024-11-21] VITALS (7 sets, daily range): BP systolic 123–175; BP diastolic 71–96; PULSE 68–85; RESP 16–19; TEMP 36.4–36.9; O2SAT 93–97
[2024-11-21] MEDS: LORazepam 2 mg/mL INJ 1 mL IVP (01:22)
[2024-11-21] MEDS: methylPREDNISolone sod succ 40 mg/mL INJ IVP ×2 (02:57→14:35)
[2024-11-21] MEDS: piperacillin-tazobactam 3.375 GM in sodium chloride 0.9% (plus) 50 ML IV ×3 (06:01→22:19)
[2024-11-21 06:36] LABS: Anion Gap 20.1 (5-19); Basophils % 0.1 %; Blood Urea Nitrogen 10 mg/dL (8-23); Calcium 8.9 mg/dL (8.5-10.5); Carbon Dioxide 24 mmol/L (22-29); Chloride 99 mmol/L (98-107); Creatinine Clr Calc Pharmacy 86.9065; Glomerular Filtration Rate 95.8 mL/min (90-130); Glucose 129 mg/dL (65-115); Hematocrit 41.7 % (37-53); Lymphocytes # 0.7 10^3/uL (0.8-4.8); Lymphocytes % 9.8 %; Magnesium 2.3 mg/dL (1.7-2.3); Mean Corpuscular HGB Conc 34.3 g/dL (30-55); Mean Corpuscular Hemoglobin 30.2 pg (27-33); Mean Platelet Volume 10.6 fL (7.4-10.4); Monocytes # 0.2 10^3/uL (0.2-0.9); Monocytes % 2.4 %; Neutrophils # 6.54 10^3/uL (1.8-7.7); Nucleated Red Blood Cells % 0 %; Osmolality Calculated 287 mOsm/kg (285-295); Platelet Count 148 10^3/cmm (157-399); Potassium 5.1 mmol/L (3.5-5.1); Red Blood Count 4.74 10^6/uL (3.85-5.65); Red Cell Distribution Width 13.9 % (12.1-15.1); Sodium 138 mmol/L (136-145); White Blood Count 7.52 10^3/uL (3.29-11.43)
[2024-11-21] MEDS: memantine 5 mg tablet 10 MG PO ×2 (08:33→17:32)
[2024-11-21] MEDS: amlodipine 5 mg Tablet PO (08:34)
[2024-11-21] MEDS: metoprolol tartrate 50 mg Tablet 100 MG PO ×2 (08:34→20:47)
[2024-11-21] MEDS: morphine IR 15 mg Tablet PO (13:30)
[2024-11-21 15:39] LABS: C.Diff PCR (Lab) NEGATIVE (Negative)
[2024-11-21] MEDS: sodium chloride 0.9% 1,000 ML 50 ML IV (17:31)
--- NOTE | 2024-11-21 17:56 | P.PN_ITS ---
Subjective 2 Subjective: Hospital course, labs appreciated. Patient seen laying comfortably in bed. Denies any nausea vomiting, headache. He is alert and oriented to self, date of . Not oriented to place or president. Seems forgetful. Vitals/I&O/Wt Last Vital Signs Temp 98.1 F 11/21/24 12:00 Pulse 80 11/21/24 12:00 Resp 18 11/21/24 13:30 BP 132/87 11/21/24 12:00 Pulse Ox 96 11/21/24 12:00 O2 Del Method Room Air 11/21/24 12:00 11/21/24 11/21/24 11/21/24 06:59 14:59 22:59 Intake Total 50 / 927 890 / 890 Output Total 300 / 800 450 / 450 Balance -250 / 127 440 / 440 Weight last 48 hrs Weight 77.111 kg Weight 80.24 kg Physical Exam 2 Narrative: General: No acute distress, alert and oriented to self, date of , year, not alert to place, current president, forgetful HEENT: PERRLA, pupils bilaterally equal and reactive Chest: Normal vesicular breath sounds, no added sounds, equal good air entry bilaterally CVS: S1-S2 regular, no murmurs, no tachycardia, no gallops, no rubs Abdomen: Soft, nontender, no organomegaly, bowel sounds present Neuro: No focal deficits, no facial deformity, moving all limbs Urinary Catheter Management: Whitaker: Cath Placed During This Visit: yes Reason for Continuing Indwelling Catheter: Other Urinary Catheter Date of Insertion: 11/20/24 Urinary Catheter Time of Insertion: 15:57 Data 11/21/24 05:43 11/21/24 05:43 Micro: Microbiology 11/20/24 14:50 Urine Culture - Preliminary Urine,Clean Catch 11/20/24 15:52 Stool Lactoferrin - Final Stool 11/18/24 19:00 Urine Culture - Final Urine,Clean Catch A&P Assessment and plan (1) Dehydration: (2) Fall: (3) Mild cognitive impairment with memory loss: (4) Alzheimer disease: (5) History of lumbar fusion: (6) Weakness: Plan Recurrent falls History of back pain status post lumbar fusion. Most likely in setting of worsening of patient's dementia. He does have history of dementia in the past with cognitive decline. Alcohol level negative on admission. No concerns for infectious source including UTI. Appreciate vitamin B12. Will check TSH. CT head negative for acute abnormality. Could be in setting of dehydration due to diarrhea. No concern for DANI. Continue with NS at 50 cc/h. DC Whitaker catheter. Appreciate physical therapy evaluation. Patient would benefit for possible transition to SNF for further rehabitation or placement for safety. Concerns for possible need being on hospice. As per patient's son patient has not been on hospice. Will confirm with case management. Diarrhea: Does have history of Crohn's. CRP elevated. Follow-up stool studies. Continue with Solu-Medrol will decrease the dose to 40 mg IV every daily. CT abdomen pelvis done on 11/20 concern for mild infectious pathology. Continue with IV Zosyn for now. Will discontinue as per stool studies. No leukocytosis for now. Otherwise will finish a 5-day course. Urinary retention: No acute admission. CT abdomen pelvis concern for urinary retention. Will give trial of removing Whitaker for now. Start on Flomax. Bladder scan is as needed. Restart other home medications including memantine, duloxetine, trazodone. Hypertension: Goal blood pressure less than 140/90 mmHg. Continue with amlodipine 5 mg oral daily, metoprolol 100 mg twice daily. Uptitrate as for goal blood pressure. Patient son is DPOA. Full code Cardiac diet Famotidine for PUD prophylaxis Lovenox for DVT prophylaxis Attestations 2 Medical Necessity Statement*: Requires further hospitalization for management of recurrent falls in setting of cognitive decline, Alzheimer's, diarrhea in a patient with history of Crohn's disease, bladder outlet obstruction Diagnoses Dehydration E86.0 Fall W19.XXXA Mild cognitive impairment with memory loss G31.84 Alzheimer disease G30.9; F02.80 History of lumbar fusion Z98.1 Weakness R53.1
--- NOTE | 2024-11-21 20:03 | PC.NURSE ---
Accurate output is unable to be obtained due to pt jumping out of bed and going to the bathroom without nursing staff after education not to do so and at times pt is incontinent of urine as well.
[2024-11-21] MEDS: trazodone 100 mg Tablet PO (20:47)
[2024-11-21] MEDS: enoxaparin 40 mg/0.4 mL Syringe SUBCUT (22:19)
[2024-11-22] VITALS (7 sets, daily range): BP systolic 134–163; BP diastolic 68–88; PULSE 57–82; RESP 16–19; TEMP 36.4–37.2; O2SAT 94–97
[2024-11-22] MEDS: LORazepam 2 mg/mL INJ 1 mL 1 MG IVP (00:28)
[2024-11-22] MEDS: OLANZapine 10 mg VIAL IM (02:10)
[2024-11-22 05:40] LABS: Basophils % 0.1 %; Hematocrit 45.2 % (37-53); Lymphocytes % 6.7 %; Mean Corpuscular HGB Conc 32.5 g/dL (30-55); Mean Corpuscular Hemoglobin 30.2 pg (27-33); Mean Corpuscular Volume 92.8 fl (82-101); Mean Platelet Volume 10.4 fL (7.4-10.4); Monocytes # 0.8 10^3/uL (0.2-0.9); Monocytes % 5.4 %; Neutrophils # 12.24 10^3/uL (1.8-7.7); Neutrophils % 86.9 %; Nucleated Red Blood Cells % 0 %; Platelet Count 145 10^3/cmm (157-399); Red Blood Count 4.87 10^6/uL (3.85-5.65); Red Cell Distribution Width 14.3 % (12.1-15.1); White Blood Count 14.08 10^3/uL (3.29-11.43)
[2024-11-22 06:22] LABS: Alanine Aminotransferase 81 U/L (0-41); Albumin Level 3.5 g/dL (3.5-5.2); Alkaline Phosphatase 184 U/L (40-130); Anion Gap 19.6 (5-19); Aspartate Amino Transferase 66 U/L (0-40); Blood Urea Nitrogen 15 mg/dL (8-23); Calcium 9.1 mg/dL (8.5-10.5); Carbon Dioxide 25 mmol/L (22-29); Chloride 99 mmol/L (98-107); Creatinine Clr Calc Pharmacy 86.9065; Globulin 3.2 g/dL (1.3-4.6); Glomerular Filtration Rate 95.8 mL/min (90-130); Glucose 101 mg/dL (65-115); Osmolality Calculated 291 mOsm/kg (285-295); Potassium 3.6 mmol/L (3.5-5.1); Sodium 140 mmol/L (136-145); Total Bilirubin 0.5 mg/dL (0.15-1.2); Total Protein 6.7 g/dL (6.6-8.7)
[2024-11-22] MEDS: piperacillin-tazobactam 3.375 GM in sodium chloride 0.9% (plus) 50 ML IV (06:48)
--- NOTE | 2024-11-22 06:59 | PM.MISC ---
Miscellaneous Note Purpose of Documentation: Patient experiencing sundowning receive Zyprexa and Ativan overnight He was trying to pull his lines and catheters
[2024-11-22] MEDS: metoprolol tartrate 50 mg Tablet 100 MG PO ×2 (08:53→20:09)
[2024-11-22] MEDS: famotidine 20 mg Tablet PO ×2 (08:53→17:35)
[2024-11-22] MEDS: methylPREDNISolone sod succ 40 mg/mL INJ IVP (08:53)
[2024-11-22] MEDS: duloxetine 30 mg Capsule 60 MG PO (08:53)
[2024-11-22] MEDS: memantine 5 mg tablet 10 MG PO ×2 (08:53→17:34)
[2024-11-22] MEDS: amlodipine 5 mg Tablet PO (08:53)
[2024-11-22] MEDS: haloperidol inj 5 mg/mL INJ 1 mL 1 MG IVP (13:31)
[2024-11-22] MEDS: haloperidol inj 5 mg/mL INJ 1 mL IM (14:17)
[2024-11-22] MEDS: HYDROcodone-acetaminophen 10-325 mg Tablet 1 TAB PO (14:31)
[2024-11-22] MEDS: ziprasidone 20 mg/mL SDV IM (14:38)
[2024-11-22] MEDS: ziprasidone 20 mg/mL SDV (14:53)
[2024-11-22] MEDS: water for injection-sterile 10 ML (14:54)
--- NOTE | 2024-11-22 17:46 | P.PN_ITS ---
Subjective 2 Subjective: Overnight patient had an episode of agitation for which she required Ativan and Geodon. Today morning examination patient has sitter at bedside. Is awake and alert to self. Has episodes of agitation with episodes of agitation towards the nurses for which code 10 was called. He was treated with IV Haldol and Geodon. Vitals/I&O/Wt Last Vital Signs Temp 97.6 F 11/22/24 16:00 Pulse 61 11/22/24 16:00 Resp 16 11/22/24 16:00 BP 134/76 11/22/24 16:00 Pulse Ox 94 11/22/24 16:00 O2 Del Method Room Air 11/22/24 16:00 11/22/24 11/22/24 11/22/24 06:59 14:59 22:59 Intake Total 50 / 1230 1650 / 1650 Balance 50 / 480 1650 / 1650 Weight last 48 hrs Weight 77.7 kg Weight 77.111 kg Physical Exam 2 Narrative: General: No acute distress, alert and oriented to self, date of , year, not alert to place, current president, forgetful HEENT: PERRLA, pupils bilaterally equal and reactive Chest: Normal vesicular breath sounds, no added sounds, equal good air entry bilaterally CVS: S1-S2 regular, no murmurs, no tachycardia, no gallops, no rubs Abdomen: Soft, nontender, no organomegaly, bowel sounds present Neuro: No focal deficits, no facial deformity, moving all limbs Urinary Catheter Management: Whitaker: Cath Placed During This Visit: yes, but has since been removed by the nurse Reason for Continuing Indwelling Catheter: Other Urinary Catheter Date of Insertion: 11/20/24 Urinary Catheter Time of Insertion: 15:57 Date Urinary Catheter Removed: 11/21/24 Time Urinary Catheter Discontinued: 15:00 Data 11/22/24 04:45 11/22/24 04:45 Micro: Microbiology 11/20/24 14:50 Urine Culture - Final Urine,Clean Catch A&P Assessment and plan (1) Dehydration: (2) Fall: (3) Mild cognitive impairment with memory loss: (4) Alzheimer disease: (5) History of lumbar fusion: (6) Weakness: (7) Hospice care: Confirmed with PCPs office and hospice company. It seems patient had signed hospice on 08/12 with his PCP [facility]. Reviewed the paperwork. Discussed in detail with patient's DPOA and son at bedside. Plan to transition to hospice care. Son is agreeable. Plan Recurrent falls History of back pain status post lumbar fusion. Most likely in setting of worsening of patient's dementia. He does have history of dementia in the past with cognitive decline. Alcohol level negative on admission. No concerns for infectious source including UTI. Appreciate vitamin B12, TSH CT head negative for acute abnormality. Cognitive decline most likely in setting of advanced dementia. Continue with home dose of Namenda, Cymbalta. Add Zyprexa nightly. Change trazodone to 50 mg nightly. Haldol 1 mg IV every 4 hours as needed. Will try to avoid Ativan given concerns for agitation post Ativan. Could be in setting of dehydration due to diarrhea. No concern for DANI. Patient be transition to hospice care. IV line pulled out. Stop IV fluids. DC Whitaker catheter. Appreciate physical therapy evaluation. Patient on hospice care as above. Discussed about possible discharge plan for comfort and safety with patient's son/DPOA at bedside. Discussed about possible discharge to home with hospice but will need a caregiver at home versus SNF with hospice. Discussed in detail with case management. Son will discuss with family and get back with their decision. Diarrhea: Does have history of Crohn's. CRP elevated. Follow-up stool studies. Transition to prednisone [address] abdomen pelvis done on 11/20 concern for mild infectious pathology. For now we will stop IV Zosyn given hospice status. Low concern for colitis. Urinary retention: No acute admission. CT abdomen pelvis concern for urinary retention. Will give trial of removing Wihtaker for now. Start on Flomax. Bladder scan is as needed. Restart other home medications including memantine, duloxetine, trazodone. Hypertension: Goal blood pressure less than 140/90 mmHg. Continue with amlodipine 5 mg oral daily, metoprolol 100 mg twice daily. Uptitrate as for goal blood pressure. Patient son is DPOA. Care discussed in detail with son at bedside. All the questions were answered. Reviewed paperwork from PCPs office. Patient had signed hospice services and DNR/DNI in 08/11. Will transition to DNR/DNI. Hospice referral. Cardiac diet Famotidine for PUD prophylaxis Lovenox for DVT prophylaxis PDMP PDMP Reviewed: Not Reviewed Attestations 2 Medical Necessity Statement*: Requires further hospitalization while safe discharge planning is sought in a patient on hospice with concerns for advanced dementia Diagnoses Dehydration E86.0 Fall W19.XXXA Mild cognitive impairment with memory loss G31.84 Alzheimer disease G30.9; F02.80 History of lumbar fusion Z98.1 Weakness R53.1 Hospice care Z51.5
[2024-11-22] MEDS: tamsulosin 0.4 mg Capsule PO (19:28)
[2024-11-22] MEDS: OLANZapine 5 mg ODT PO (20:09)
[2024-11-22] MEDS: enoxaparin 40 mg/0.4 mL Syringe SUBCUT (22:17)
[2024-11-23] VITALS (7 sets, daily range): BP systolic 138–163; BP diastolic 72–87; PULSE 45–78; RESP 15–18; TEMP 36.4–36.9; O2SAT 93–96
[2024-11-23 05:32] LABS: Basophils % 0.1 %; Hematocrit 42.1 % (37-53); Lymphocytes # 1.4 10^3/uL (0.8-4.8); Lymphocytes % 13.8 %; Mean Corpuscular HGB Conc 32.5 g/dL (30-55); Mean Corpuscular Hemoglobin 29.9 pg (27-33); Mean Corpuscular Volume 91.9 fl (82-101); Mean Platelet Volume 10.9 fL (7.4-10.4); Monocytes # 0.7 10^3/uL (0.2-0.9); Monocytes % 7.1 %; Neutrophils # 7.95 10^3/uL (1.8-7.7); Neutrophils % 78.2 %; Nucleated Red Blood Cells % 0 %; Platelet Count 148 10^3/cmm (157-399); Red Blood Count 4.58 10^6/uL (3.85-5.65); Red Cell Distribution Width 14.6 % (12.1-15.1); White Blood Count 10.16 10^3/uL (3.29-11.43)
[2024-11-23] MEDS: tamsulosin 0.4 mg Capsule PO ×2 (08:39→16:50)
[2024-11-23] MEDS: predniSONE 20 mg Tablet 40 MG PO (08:39)
[2024-11-23] MEDS: amlodipine 5 mg Tablet PO (08:40)
[2024-11-23] MEDS: famotidine 20 mg Tablet PO ×2 (08:40→16:50)
[2024-11-23] MEDS: duloxetine 30 mg Capsule 60 MG PO (08:40)
[2024-11-23] MEDS: memantine 5 mg tablet 10 MG PO ×2 (08:42→16:50)
--- NOTE | 2024-11-23 15:16 | ECG_ITS ---
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 Measurements Intervals [place] Rate: 61 P: 63 SC: 138 QRS: 43 QRSD: 85 T: 40 QT: 439 QTc: 444 Interpretive Statements SINUS RHYTHM Compared to ECG 11/19/2024 22:56:07 T-wave abnormality no longer present Electronically Signed On 11-24-2024 22:18:52 TELEPHONE DIAPHRAGM ASSEMBLER by Henrique Anderson M.D. [email or web address]
--- NOTE | 2024-11-23 15:22 | P.PN_ITS ---
Subjective 2 Subjective: No acute events overnight. No episodes of agitation. Patient has remained calm. Today morning examination sleeping. Did have meal early in the morning today per nursing staff. Vitals/I&O/Wt Last Vital Signs Temp 97.7 F 11/23/24 11:05 Pulse 54 L 11/23/24 11:05 Resp 15 11/23/24 11:05 BP 149/81 11/23/24 11:05 Pulse Ox 96 11/23/24 11:05 O2 Del Method Room Air 11/23/24 11:05 11/23/24 11/23/24 11/23/24 06:59 14:59 22:59 Intake Total 1899 180 / 180 Balance 1899 180 / 180 Weight last 48 hrs Weight 76.748 kg Weight 77.7 kg Physical Exam 2 Narrative: General: No acute distress, alert and oriented to self, date of , year, not alert to place, current president, forgetful HEENT: PERRLA, pupils bilaterally equal and reactive Chest: Normal vesicular breath sounds, no added sounds, equal good air entry bilaterally CVS: S1-S2 regular, no murmurs, no tachycardia, no gallops, no rubs Abdomen: Soft, nontender, no organomegaly, bowel sounds present Neuro: No focal deficits, no facial deformity, moving all limbs Urinary Catheter Management: Whitaker: Cath Placed During This Visit: yes, but has since been removed by the nurse Reason for Continuing Indwelling Catheter: Not indwelling catheter Urinary Catheter Date of Insertion: 11/20/24 Urinary Catheter Time of Insertion: 15:57 Date Urinary Catheter Removed: 11/21/24 Time Urinary Catheter Discontinued: 15:00 Data 11/23/24 04:45 11/22/24 04:45 A&P Assessment and plan (1) Dehydration: (2) Fall: (3) Mild cognitive impairment with memory loss: (4) Alzheimer disease: (5) History of lumbar fusion: (6) Weakness: (7) Hospice care: Confirmed with PCPs office and hospice company. It seems patient had signed hospice on 08/12 with his PCP Howard Branch. Reviewed the paperwork. Discussed in detail with patient's DPOA and son at bedside. Plan to transition to hospice care. Son is agreeable. Plan Recurrent falls History of back pain status post lumbar fusion. Most likely in setting of worsening of patient's dementia. He does have history of dementia in the past with cognitive decline. Alcohol level negative on admission. No concerns for infectious source including UTI. Appreciate vitamin B12, TSH CT head negative for acute abnormality. Cognitive decline most likely in setting of advanced dementia. Continue with home dose of Namenda, Cymbalta. Add Zyprexa nightly. Change trazodone to 50 mg nightly. Haldol 1 mg IV every 4 hours as needed. Will try to avoid Ativan given concerns for agitation post Ativan. Could be in setting of dehydration due to diarrhea. No concern for DANI. Patient be transition to hospice care. IV line pulled out. Stop IV fluids. DC Whitaker catheter. Appreciate physical therapy evaluation. Patient on hospice care as above. Discussed about possible discharge plan for comfort and safety with patient's son/DPOA at bedside. Discussed about possible discharge to home with hospice but will need a caregiver at home versus SNF with hospice. Discussed in detail with case management. Son will discuss with family and get back with their decision. Diarrhea: Does have history of Crohn's. CRP elevated. Follow-up stool studies. Transition to prednisone [address] abdomen pelvis done on 11/20 concern for mild infectious pathology. For now we will stop IV Zosyn given hospice status. Low concern for colitis. Urinary retention: No acute admission. CT abdomen pelvis concern for urinary retention. Will give trial of removing Whitaker for now. Start on Flomax. Bladder scan is as needed. Restart other home medications including memantine, duloxetine, trazodone. Hypertension: Goal blood pressure less than 140/90 mmHg. Continue with amlodipine 5 mg oral daily, metoprolol 100 mg twice daily. Uptitrate as for goal blood pressure. Patient son is DPOA. Care discussed in detail with son at bedside. All the questions were answered. Reviewed paperwork from PCPs office. Patient had signed hospice services and DNR/DNI in 08/11. Will transition to DNR/DNI. Hospice referral. Cardiac diet Famotidine for PUD prophylaxis Lovenox for DVT prophylaxis Plan for the day: Transitioned to hospice care as per patient's wishes from the past as per the documentation from PCPs office and hospice paperwork. Continue prednisone to finish a 5-day course. Haldol as needed. Zyprexa nightly. Continue with home dose of Namenda. Remove sitter. Concerns of bradycardia overnight. Decrease home dose of metoprolol to 50 mg twice daily. Check EKG. Discharge plan: Plan to discharge home with hospice versus SNF with hospice. PDMP PDMP Reviewed: Not Reviewed Attestations 2 Medical Necessity Statement*: Requires further hospitalization while hospice is set up Diagnoses Dehydration E86.0 Fall W19.XXXA Mild cognitive impairment with memory loss G31.84 Alzheimer disease G30.9; F02.80 History of lumbar fusion Z98.1 Weakness R53.1 Hospice care Z51.5
[2024-11-23] MEDS: OLANZapine 5 mg ODT PO (20:43)
[2024-11-23] MEDS: metoprolol tartrate 50 mg Tablet PO (20:43)
[2024-11-23] MEDS: enoxaparin 40 mg/0.4 mL Syringe SUBCUT (22:55)
[2024-11-24 04:00] VITALS: BP 139/70; PULSE 57; RESP 15; TEMP 36.5; O2SAT 95
[2024-11-24 07:14] VITALS: BP 146/84; PULSE 74; RESP 17; TEMP 36.9; O2SAT 97
[2024-11-24] MEDS: amlodipine 5 mg Tablet PO (08:37)
[2024-11-24] MEDS: duloxetine 30 mg Capsule 60 MG PO (08:37)
[2024-11-24] MEDS: predniSONE 20 mg Tablet 40 MG PO (08:38)
[2024-11-24] MEDS: memantine 5 mg tablet 10 MG PO (08:38)
[2024-11-24] MEDS: metoprolol tartrate 50 mg Tablet PO (08:38)
[2024-11-24] MEDS: famotidine 20 mg Tablet PO (08:38)
[2024-11-24] MEDS: tamsulosin 0.4 mg Capsule PO (08:38)
--- NOTE | 2024-11-24 10:52 | P.DS_ITS ---
Discharge Providers Date of Admission: 11/18/24 20:23 Date of Discharge: November 24, 2024 Attending Provider at Admission: Fazal Sorensen MD Attending Provider at Discharge: Osmany Coppola MD Primary Care Provider: Howard Munson DO Diagnoses at Discharge Discharge Diagnosis (1) Dehydration: Status: Acute (2) Fall: Status: Acute (3) Mild cognitive impairment with memory loss: Status: Acute (4) Alzheimer disease: Status: Acute (5) History of lumbar fusion: Status: Acute (6) Weakness: Status: Acute (7) Hospice care: Status: Acute Reason for Visit Reason for Visit: fall - dizziness Brief History: History as per HPI: Pablo aSucedo is a 69 year old male presented after sustaining a fall at home. Patient is stating that he is on hospice care and lives alone at home. Patient has history of dementia, Crohn's disease, follows up with [place] oncologist for his right upper lobe lung cancer status post lobectomy. Patient when asked about hospice care he said his goofy brother put him on hospice. Patient is not a very reliable historian stating that he cooks for himself but not able to tell me what he took in the morning. Patient is stating that he has a recurrent falls, and within 24 hours he has fallen twice, he is denying chest pain, syncopal events. Seizure related activity. Patient was asked about alf placement: He is stating that he would like to think about it and let us know in the morning. Patient has seen Dr. Wagoner for his back pain goes to the pain clinic in [place]. Patient has been experiencing back pain for quite some time, not as mobile since back surgery 2014. Patient is stating that main reason for his arrival in the ER is to get evaluated because of recurrent falls. He has mild leukocytosis, no active source of infection, respiratory panel is negative. Mild hypokalemia. EKG not showing any ischemic or infarctive changes, troponin trending down, Hospital Course Hospital Course Patient was admitted to the hospital for evaluation and management of possible altered mental status with recurrent falls. It is believed patient's symptoms are most likely in setting of worsening of his baseline dementia because of dehydration. At first he started on broad-spectrum antibiotics with concerns for possible colitis. His diarrhea is most likely in setting of his chronic Crohn's. Patient continued to have occasional episodes of agitation during hospitalization. Patient's poor status of being on hospice was confirmed by the hospice company and by his PCPs office. It seems patient had signed a hospice care for himself on 08/11 at primary care's office with [facility] Patient being on hospice were discussed in detail with his son/DPOA in detail and he was agreeable. He has been discharged to home with hospice for further management as per goals of care. Physical Exam Narrative: General: No acute distress, alert and oriented to self, date of , year, not alert to place, current president, forgetful, occasional education HEENT: PERRLA, pupils bilaterally equal and reactive Chest: Normal vesicular breath sounds, no added sounds, equal good air entry bilaterally CVS: S1-S2 regular, no murmurs, no tachycardia, no gallops, no rubs Abdomen: Soft, nontender, no organomegaly, bowel sounds present Neuro: No focal deficits, no facial deformity, moving all limbs Urinary Catheter Management: Whitaker: Cath Placed During This Visit: yes, but has since been removed by the nurse Reason for Continuing Indwelling Catheter: Not indwelling catheter Urinary Catheter Date of Insertion: 11/20/24 Urinary Catheter Time of Insertion: 15:57 Date Urinary Catheter Removed: 11/21/24 Time Urinary Catheter Discontinued: 15:00 Discharge Data Studies Completed and Pending Completed Studies During Hospitalization Category Date Time Status CT abdomen pelvis w con* [id number] Stat Cat Scan 11/20/24 13:[address] head wo con* [id number] Stat Cat Scan 11/18/24 17:04 Completed XR chest 1V portable [id number] Stat Exams 11/18/24 17:02 Completed Pending at discharge Category Date Time Status OVA and Parasites, Conc and PE Routine Lab 11/20/24 15:52 Results Stool Culture - Enteric [Salmonella / Shigella / Campy] Lab 11/20/24 15:52 Results Routine Radiology Impressions Chest X-Ray 11/18/24 17:02 IMPRESSION: 1. No acute cardiopulmonary abnormality. 2. Hazy opacities in the mid to upper right lung, which may reflect scarring. Recurrent neoplasm would be difficult to exclude. Head CT 11/18/24 17:04 IMPRESSION: 1. No acute intracranial abnormality. Abdomen/Pelvis CT 11/20/24 13:44 IMPRESSION: 1. Liquid stool extending to the rectum without additional bowel pathology suggesting infectious/inflammatory pathology. 2. Prostatomegaly with abnormal urinary bladder wall consistent with outlet obstruction. 3. Minor findings noted above including stable 9 mm left adrenal adenoma and hepatic steatosis. Laboratory Results WBC 10.16 10^3/uL (3.29-11.43) 11/23/24 04:45 RBC 4.58 10^6/uL (3.85-5.65) 11/23/24 04:45 Hgb 13.70 g/dL (11.27-16.99) 11/23/24 04:45 Hct 42.1 % (37-53) 11/23/24 04:45 MCV 91.9 fl (82-101) 11/23/24 04:45 MCH 29.9 pg (27-33) 11/23/24 04:45 MCHC 32.5 g/dL (30-55) 11/23/24 04:45 RDW 14.6 % (12.1-15.1) 11/23/24 04:45 Plt Count 148 10^3/cmm (157-399) L 11/23/24 04:45 MPV 10.9 fL (7.4-10.4) H 11/23/24 04:45 Neut % (Auto) 78.2 % 11/23/24 04:45 Lymph % (Auto) 13.8 % 11/23/24 04:45 Motley % (Auto) 7.1 % 11/23/24 04:45 Eos % (Auto) 0.0 % 11/23/24 04:45 Baso % (Auto) 0.1 % 11/23/24 04:45 Neut # (Auto) 7.95 10^3/uL (1.8-7.7) H 11/23/24 04:45 Lymph # (Auto) 1.4 10^3/uL (0.8-4.8) 11/23/24 04:45 Motley # (Auto) 0.7 10^3/uL (0.2-0.9) 11/23/24 04:45 Eos # (Auto) 0.0 10^3/uL (0.0-0.8) 11/23/24 04:45 Baso # (Auto) 0.0 10^3/uL (0.0-0.1) 11/23/24 04:45 Nucleated RBC % (auto) 0 % 11/23/24 04:45 Nucleated RBCs # 0.0 /100WBC 11/23/24 04:45 Sodium 140 mmol/L (136-145) 11/22/24 04:45 Potassium 3.6 mmol/L (3.5-5.1) 11/22/24 04:45 Chloride 99 mmol/L (98-107) 11/22/24 04:45 Carbon Dioxide 25 mmol/L (22-29) 11/22/24 04:45 Anion Gap 19.6 (5-19) H 11/22/24 04:45 BUN 15 mg/dL (8-23) 11/22/24 04:45 Creatinine 0.8 mg/dL (0.7-1.2) 11/22/24 04:45 GFR Calculation 95.8 mL/min (90-130) 11/22/24 04:45 Glucose 101 mg/dL (65-115) 11/22/24 04:45 Calculated Osmolality 291 mOsm/kg (285-295) 11/22/24 04:45 Lactic Acid 1.1 mmol/L (0.5-2.2) 11/18/24 18:09 Calcium 9.1 mg/dL (8.5-10.5) 11/22/24 04:45 Phosphorus 1.8 mg/dL (2.5-4.5) L 11/19/24 02:35 Magnesium 2.3 mg/dL (1.7-2.3) 11/21/24 05:43 Total Bilirubin 0.5 mg/dL (0.15-1.2) 11/22/24 04:45 AST 66 U/L (0-40) H 11/22/24 04:45 ALT 81 U/L (0-41) H 11/22/24 04:45 Alkaline Phosphatase 184 U/L (40-130) H 11/22/24 04:45 Troponin T Baseline 34 ng/L (0-15) H 11/18/24 18:09 Troponin T 120 Minute 31.07 ng/L (0-15) H 11/18/24 20:15 Delta Troponin T -2.93 ABS# (0-10) L 11/18/24 20:15 Troponin T Hi Sens 6Hr 31.02 ng/L (0-15) H 11/19/24 00:32 Troponin T Hi Sens 6Hr Delta -2.98 ng/L (0-12) L 11/19/24 00:32 C-Reactive Protein 107.0 mg/L (0.0-4.9) H 11/19/24 02:35 Total Protein 6.7 g/dL (6.6-8.7) 11/22/24 04:45 Albumin 3.5 g/dL (3.5-5.2) 11/22/24 04:45 Globulin 3.2 g/dL (1.3-4.6) 11/22/24 04:45 Vitamin B12 252 pg/mL (232-1245) 11/18/24 23:14 TSH 0.30 uIU/mL (0.27-4.20) 11/21/24 05:43 Urine Color [place] (Yellow) A 11/18/24 19:00 Urine Appearance Clear (CLEAR) 11/18/24 19:00 Urine pH 7.0 (5-7) 11/18/24 19:00 Ur Specific [place] 1.024 (1.005-1.030) 11/18/24 19:00 Urine Protein 1+ (Negative) A 11/18/24 19:00 Urine Glucose (UA) Negative (Normal) 11/18/24 19:00 Urine Ketones 1+ (Negative) H 11/18/24 19:00 Urine Blood 2+ (Negative) A 11/18/24 19:00 Urine Nitrate Negative (Negative) 11/18/24 19:00 Urine Bilirubin 1+ (Negative) H 11/18/24 19:00 Urine Urobilinogen 2.0 mg/dL (Negative) H 11/18/24 19:00 Ur Leukocyte Esterase Trace (Negative) A 11/18/24 19:00 Urine RBC 21-50 /hpf (0-2) H 11/18/24 19:00 Urine WBC 0-5 /hpf (0-5) 11/18/24 19:00 Ur Squamous Epith Cells 0-5 /hpf (0-5) 11/18/24 19:00 Amorphous Sediment Not Reportable 11/18/24 19:00 Urine Bacteria None seen /hpf (NONE) 11/18/24 19:00 Hyaline Casts 0.81 /lpf 11/18/24 19:00 Ethyl Alcohol < 10 mg/dL (0-10) 11/18/24 18:06 C. difficile (PCR) Negative (Negative) 11/20/24 15:52 Coronavirus (PCR) Negative (Negative) 11/18/24 17:12 Influenza A (PCR) Negative (Negative) 11/18/24 17:12 Influenza Type B (PCR) Negative (Negative) 11/18/24 17:12 RSV (PCR) Negative (Negative) 11/18/24 17:12 Vitals Last Vital Signs Temp 98.5 F 11/24/24 07:14 Pulse 74 11/24/24 07:14 Resp 17 11/24/24 07:14 BP 146/84 11/24/24 07:14 Pulse Ox 97 11/24/24 07:14 O2 Del Method Room Air 11/24/24 07:14 Discharge Plan Discharge Patient Disposition: Hospice - Home Condition: Stable Prescriptions: New tamsulosin 0.4 mg Capsule 0.4 mg PO BID 30 Days Qty: 60 0RF olanzapine 5 mg Tablet,Disintegrating 5 mg PO BEDTIME 30 Days Qty: 30 0RF Continued amlodipine 5 mg tablet 5 mg PO DAILY celecoxib [Celebrex] 100 mg capsule 100 mg PO BID Qty: 28 0RF galantamine 8 mg tablet 8 mg PO BID Qty: 180 3RF Rx Instructions: administer with AM and PM meals; watch for nausea memantine 10 mg tablet 10 mg PO BID 90 Days Qty: 180 3RF fluticasone propionate 50 mcg/actuation spray,suspension 1 spray intranasal DAILY buprenorphine 15 mcg/hour patch weekly 1 patch topical ONCE alprazolam 1 mg tablet 1 mg PO BEDTIME PRN (Reason: anxiety ) hydrocodone-acetaminophen 10-325 mg tablet 1 - 2 tab PO TID PRN (Reason: Pain) Rx Instructions: no more than 4 a day . albuterol sulfate 90 mcg/actuation Hfa Aerosol Inhaler 2 puff INHALATION Q6H PRN (Reason: Shortness Of Breath) bupropion HCl 300 mg Tablet Extended Release 24 Hr 300 mg PO QAM meloxicam 15 mg tablet 15 mg PO DAILY trazodone 100 mg tablet 100 mg PO BEDTIME furosemide 20 mg tablet 20 mg PO DAILY PRN (Reason: swelling) colestipol 1 gram tablet 1 g PO BID duloxetine 30 mg capsule,delayed release(DR/EC) 60 mg PO DAILY ferrous sulfate [Iron (ferrous sulfate)] 325 mg (65 mg iron) Tablet 325 mg PO DAILY cholecalciferol (vitamin D3) [Vitamin D3] 50 mcg (2,000 unit) Tablet 50 mcg PO DAILY fluticasone propion-salmeterol 250-50 mcg/dose Blister With Device 1 inh INHALATION BID Changed metoprolol tartrate 100 mg tablet 50 mg PO BID Qty: 30 0RF Discharge Orders: Discharge Order (Routine); Ordered 11/24/24 Ordered By: Osmany Coppola Referrals: Howard Munson DO [Primary Care Provider] - 11/30/24 11:00 am Discharge Diet: Usual diet Discharge Activity: Resume usual activity and Increase activity as tolerated Patient Instructions: Dehydration - Adult, Olanzapine (By mouth), Tamsulosin (By mouth), Opioid Safety Discharge Attestations Time Spent in Discharge Care*: greater than 30 min Specific Discharge Activities: educating and/or supporting family/caregiver, discussing with pcp/other providers, discussing with sample case porter/social workers/dc planners, documenting/other paperwork and evaluating patient/reviewing data Status at Discharge: Cognitive status at discharge: moderately impaired cognition , Behavioral status at discharge: can be uncooperative , Functional status at discharge: independent ambulation , Overall status at discharge: patient is back to baseline Quality Metrics Clinical Quality Measures [ No reported AMI, CVA or VTE this stay] Coding Level of Care Code 39760 Total time (in minutes) for Discharge: 50 Diagnoses Dehydration E86.0 Fall W19.XXXA Mild cognitive impairment with memory loss G31.84 Alzheimer disease G30.9; F02.80 History of lumbar fusion Z98.1 Weakness R53.1 Hospice care Z51.5
[2024-11-24 12:15] VITALS: BP 146/84; PULSE 74; RESP 17; TEMP 36.9; O2SAT 97
--- NOTE | 2024-11-24 12:45 | PC.NURSE ---
Discharge instructions given to Keven (son) and pt. Keven verbalizes understanding. Pt to private vehicle with all belongings.
== END 2024-11-24 12:46 | disposition hospice, home (50) ==
LOC: ER 20:07 → MEDSURG 20:59
PROVIDERS: Internal Medicine; Admitting Provider Internal Medicine; Emergency Provider Emergency Medicine; PCP Family Medicine; Visit Provider Student in an Organized Health Care Education/Training Program
DX: R53.1 Weakness (principal); E86.0 Dehydration; Z51.5 Encounter for palliative care; Z98.1 Arthrodesis status; G30.9 Alzheimer's disease, unspecified; F02.80 Dementia in other diseases classified elsewhere, unspecified severity, without behavioral disturbance, psychotic disturbance, mood disturbance, and anxiety; Z91.81 History of falling; C34.11 Malignant neoplasm of upper lobe, right bronchus or lung; R19.7 Diarrhea, unspecified; R33.9 Retention of urine, unspecified; Z66 Do not resuscitate; E87.6 Hypokalemia; F17.200 Nicotine dependence, unspecified, uncomplicated
CPT/HCPCS: 36415; 51702; 70450; 71045; 74177; 80048; 80053; 80307; 81001; 82607; 83605; 83630; 83735; 84100; 84443; 84484; 85025; 86140; 87040; 87045; 87086; 87177; 87209; 87427; 87449; 87493; 87637; 93005; 96365; 96367; 96372; 96375; 96376; 97116; 97161; 97530; 99285; G0378; J1630; J1650; J2060; J2543; J2919; J3480; J3486; J3490; J7030; J7512

== ENCOUNTER 2024-12-14 07:22 | Outpatient (CLI) | payer MEDICARE, SELFPAY ==
--- NOTE | 2024-12-14 07:30 | USCV_ITS ---
Pablo Saucedo Age: 69 Gender: M : 1955 Exam Date: 12/14/2024 07:35 Ordering Phys: Thiago Munson Technologist: THAO Exam Location: [facility] [place] Indication: LE PAIN HISTORY: Lower extremity pain. PROCEDURES: Venous duplex imaging was performed in only the right lower extremity. The following venous structures were evaluated: common femoral vein, profunda vein, proximal portion of the greater saphenous vein, superficial femoral vein, and the popliteal vein. In addition, the posterior tibial and peroneal trunk were evaluated. Serial compression, augmentation maneuvers, and spectral Doppler flow evaluation were performed. FINDINGS: No evidence of DVT seen in any vessel visualized at this time. CONCLUSIONS No evidence of right lower extremity DVT. Chiki Rodríguez MD (Electronically Signed) Final Date: 14 December 2024 11:19 S
== END 2024-12-14 07:23 | disposition home or self-care (01) ==
PROVIDERS: PCP Family Medicine; Visit Provider Family Medicine
DX: M79.604 Pain in right leg (principal)
CPT/HCPCS: 93971

== ENCOUNTER 2025-03-25 01:20 | Observation (INO) | payer OTHER, MEDICARE, SELFPAY ==
[2025-03-25] VITALS (10 sets, daily range): BP systolic 129–154; BP diastolic 67–106; PULSE 65–87; RESP 16–18; TEMP 36.4–36.7; O2SAT 93–99; BMI 34.4
--- NOTE | 2025-03-25 01:42 | CTR_ITS ---
PROCEDURE INFORMATION: Exam: CT Head Without Contrast Exam date and time: 03/25/2025 1:51 AM Age: 69 years old Clinical indication: Injury or trauma; Blunt trauma (contusions or hematomas); EMS arrival for fall at home. Abrasion to frontal. C collar in place. TECHNIQUE: Imaging protocol: Computed tomography of the head without contrast. Radiation optimization: All CT scans at this facility use at least one of these dose optimization techniques: automated exposure control; mA and/or kV adjustment per patient size (includes targeted exams where dose is matched to clinical indication); or iterative reconstruction. COMPARISON: CT head wo con* [id number] 11/18/2024 5:14 PM RADIATION DOSE METRICS: Total DLP (mGy-cm): 1114.88 FINDINGS: Brain: Negative for intracranial hemorrhage. Central atrophy and severe periventricular deep white matter hypodensity, likely secondary to chronic microvascular ischemia. Cerebral ventricles: Mild, symmetrical compensatory enlargement of the ventricles and basal cisterns. No findings to suggest acute hydrocephalus. Paranasal sinuses: Visualized sinuses are unremarkable. No fluid levels. Mastoid air cells: Visualized mastoid air cells are well aerated. Bones: Unremarkable. No acute fracture. Soft tissues: Unremarkable. Other findings: Severe intracranial atherosclerosis. CT/CT head wo con* [id number] IMPRESSION: Negative for intracranial hemorrhage. No identified acute intracranial pathology.
--- NOTE | 2025-03-25 01:42 | XRR_ITS ---
PROCEDURE INFORMATION: Exam: XR Chest Exam date and time: 03/25/2025 1:44 AM Age: 69 years old Clinical indication: Injury or trauma; Blunt trauma (contusions or hematomas); EMS arrival for fall at home. Patient has cough. TECHNIQUE: Imaging protocol: Radiologic exam of the chest. Views: 1 view. COMPARISON: CR XR chest 1V portable [id number] 11/18/2024 5:07 PM FINDINGS: Tubes, catheters and devices: Stable surgical clips over the right upper lung field. Lungs: Unremarkable. No consolidation. Pleural spaces: Unremarkable. No pleural effusion. No pneumothorax. Heart/Mediastinum: Unremarkable. No cardiomegaly. Bones/joints: Unremarkable. Soft tissues: Continued opacities over the right upper lung field consistent with CT findings of scar tissue in this area. XR/XR chest 1V portable [id number] IMPRESSION: No acute findings.
--- NOTE | 2025-03-25 01:42 | CTR_ITS ---
PROCEDURE INFORMATION: Exam: CT Cervical Spine Without Contrast Exam date and time: 03/25/2025 1:53 AM Age: 69 years old Clinical indication: Injury or trauma; Blunt trauma; EMS arrival for fall at home. Abrasion to frontal. C collar in place. TECHNIQUE: Imaging protocol: Computed tomography of the cervical spine without contrast. Radiation optimization: All CT scans at this facility use at least one of these dose optimization techniques: automated exposure control; mA and/or kV adjustment per patient size (includes targeted exams where dose is matched to clinical indication); or iterative reconstruction. COMPARISON: MR angio neck wo con [id number] 05/02/2022 8:51 AM RADIATION DOSE METRICS: Total DLP (mGy-cm): 364.71 FINDINGS: Bones: Vertebral body heights maintained. Vertebral alignment anatomic. Aars-vo-sdvbdcgo loss of intervertebral disc space at all levels. Pofp-yf-[id number] facet arthropathy. No significant central canal narrowing. Moderate neural foraminal narrowing on the left at C4-C5 and C5-C6. Moderate neural foraminal narrowing on the right at C3-C4. Lungs: Lung apices are normal. Soft tissues: Unremarkable. CT/CT cervical spin wo con* [id number] IMPRESSION: Chronic degenerative changes of the cervical spine without identified acute abnormality.
--- NOTE | 2025-03-25 01:45 | W.ED.FALL ---
HPI - Fall General: Chief Complaint: Fall Stated Complaint: FALL/AMS Time Seen by Provider: 03/25/25 01:37 History of Present Illness: Patient is brought in by EMS after he lost his balance and fell. Patient states that he was outside when he tripped and fell. Denies any pain. Per EMS the patient's family with concern for the past couple days he has not been acting right. They state they were concerned that he might of had a stroke. Patient denies any weakness or numbness. He does have some mild slurring of his speech but is also sleepy throughout the exam. States that he was started on a couple of new medications yesterday. He does not know what they are but he states he thinks that one of them was for his back. Review of his chart does not show any recent visits in our system. His neuroexam is grossly intact with an NIHSS of 0. He is oriented x 3. He is drowsy throughout the exam, however he follows commands and responds to questions appropriately. On physical exam he has no bony tenderness to palpation of his spine, chest wall, upper extremities or lower extremities. No bony pelvis tenderness to palpation, no abdominal tenderness to palpation. Will check labs, CT head and C-spine without contrast, and reassess. Associated symptoms-after fall: Denies abdominal pain, chest pain, headache(s) or neck pain Related Data Home Medications ?Medication ?Instructions ?Recorded ?Confirmed amlodipine 5 mg tablet 5 mg PO DAILY 03/25/22 11/20/24 albuterol sulfate 90 mcg/actuation 2 puff inhalation Q6H PRN 04/27/22 11/20/24 aerosol inhaler Shortness Of Breath alprazolam 1 mg tablet 1 mg PO BEDTIME PRN anxiety 04/27/22 11/20/24 bupropion HCl 300 mg 24 hr tablet, 300 mg PO QAM 04/27/22 11/20/24 extended release hydrocodone 10 mg-acetaminophen 1 - 2 tab PO TID PRN Pain 04/27/22 11/20/24 325 mg tablet buprenorphine 15 mcg/hour weekly 1 patch topical ONCE 10/08/23 11/21/24 transdermal patch fluticasone propionate 50 1 spray intranasal DAILY 10/08/23 11/20/24 mcg/actuation nasal spray,suspension cholecalciferol (vitamin D3) 50 50 mcg PO DAILY 11/20/24 11/20/24 mcg (2,000 unit) tablet (Vitamin D3) colestipol 1 gram tablet 1 g PO BID 11/20/24 11/20/24 duloxetine 30 mg capsule,delayed 60 mg PO DAILY 11/20/24 11/20/24 release ferrous sulfate 325 mg (65 mg 325 mg PO DAILY 11/20/24 11/20/24 iron) tablet (Iron (ferrous sulfate)) furosemide 20 mg tablet 20 mg PO DAILY PRN swelling 11/20/24 11/20/24 meloxicam 15 mg tablet 15 mg PO DAILY 11/20/24 11/20/24 trazodone 100 mg tablet 100 mg PO BEDTIME 11/20/24 11/20/24 fluticasone 250 mcg-salmeterol 50 1 inh inhalation BID 11/21/24 11/21/24 mcg/dose blistr powdr for inhalation Previous Rx's ?Medication ?Instructions ?Recorded celecoxib 100 mg capsule (Celebrex) 100 mg PO BID #28 caps 11/05/23 galantamine 8 mg tablet 8 mg PO BID #180 tabs 05/17/24 memantine 10 mg tablet 10 mg PO BID 90 days #180 tabs 05/17/24 metoprolol tartrate 100 mg tablet 50 mg (1/2 x 100 mg) PO BID #30 11/24/24 tabs Allergies Allergy/AdvReac Type Severity Reaction Status Date / Time No Known Allergies Allergy Verified 05/17/24 09:34 Review of Systems Const: Denies: fever(s) or body aches ENMT: Denies: throat pain Card: Denies: chest pain or palpitations Resp: Denies: dyspnea or productive cough GI: Denies: abdominal pain, nausea or vomiting Musc: Denies: neck pain or back pain Neuro: Denies: headache(s) or numbness in extremities PFSH ED PFSH: Medical History Tear of ulnar collateral ligament of left elbow Effusion of elbow joint, left Biceps tendinitis on left Cellulitis of left elbow Alzheimer disease Mild cognitive impairment with memory loss Neurologic gait disorder History of lung cancer History of Crohn's disease Paresthesia of skin Surgical History History of colon resection x2 History of back surgery 2013 Family History Brother CAD (coronary artery disease) Social History Smoking and tobacco/nicotine status: current every day tobacco/nicotine user (4-5 a day) Alcohol intake: never Substance/Drug Use: never Physical Exam Const: COMMON NORMALS: no acute distress, patient oriented x3 and healthy appearing HENMT: COMMON NORMALS: normocephalic and atraumatic HEAD & SCALP: normocephalic and atraumatic Eye: COMMON NORMALS: Equal, round and reactive pupils present and EOMs intact bilaterally PUPIL: Yes Equal, round and reactive pupils present Resp: COMMON NORMALS: normal respiratory effort, No retractions and No use of accessory muscles Cardio: COMMON NORMALS: regular rate and regular rhythm RATE: regular rate RHYTHM: regular rhythm GI: COMMON NORMALS: Normal to inspection, nondistended, normoactive bowel sounds present, Soft to palpation and non-tender PALPATION: Yes Soft to palpation Extremity: COMMON NORMALS: normal to inspection and full ROM Neuro: COMMON NORMALS: patient oriented x3 OTHER: NIHSS equals 0, patient is somewhat during exam, however he follows all commands and responds to questions appropriately Skin: COMMON NORMALS: no rashes or lesions noted and no wounds GENERAL SKIN EXAM: no rashes or lesions noted Course Vital Signs: Vital signs: Vital Signs Temperature 98 F 03/25/25 01:28 Pulse Rate 72 03/25/25 03:00 Respiratory Rate 18 03/25/25 03:00 Blood Pressure 154/106 03/25/25 03:00 Pulse Oximetry 98 03/25/25 03:00 Oxygen Delivery Me thod Room Air 03/25/25 03:00 MDM - Fall Medical Decision Making On reassessment I talked to the patient about the test results. He continues to be somnolent. We got him up to help him walk to the bathroom and he struggles to walk without trying to fall down. I am concerned that he is overmedicated. I discussed the case with the hospitalist, and we will admit for further workup and treatment of his mental status change. Lab Data 03/25/25 01:40 03/25/25 01:40 Radiology Impressions Cervical Spine CT 03/25/25 01:42 IMPRESSION: Chronic degenerative changes of the cervical spine without identified acute abnormality. Chest X-Ray 03/25/25 01:42 IMPRESSION: No acute findings. Head CT 03/25/25 01:42 IMPRESSION: Negative for intracranial hemorrhage. No identified acute intracranial pathology. Laboratory Results WBC 5.74 10^3/uL (3.29-11.43) 03/25/25 01:40 RBC 4.66 10^6/uL (3.85-5.65) 03/25/25 01:40 Hgb 14.00 g/dL (11.27-16.99) 03/25/25 01:40 Hct 42.5 % (37-53) 03/25/25 01:40 MCV 91.2 fl (82-101) 03/25/25 01:40 MCH 30.0 pg (27-33) 03/25/25 01:40 MCHC 32.9 g/dL (30-55) 03/25/25 01:40 RDW 13.3 % (12.1-15.1) 03/25/25 01:40 Plt Count 142 10^3/cmm (157-399) L 03/25/25 01:40 MPV 9.3 fL (7.4-10.4) 03/25/25 01:40 Neut % (Auto) 53.6 % 03/25/25 01:40 Lymph % (Auto) 34.7 % 03/25/25 01:40 [place] % (Auto) 8.4 % 03/25/25 01:40 Eos % (Auto) 2.1 % 03/25/25 01:40 Baso % (Auto) 0.9 % 03/25/25 01:40 Neut # (Auto) 3.08 10^3/uL (1.8-7.7) 03/25/25 01:40 Lymph # (Auto) 2.0 10^3/uL (0.8-4.8) 03/25/25 01:40 [place] # (Auto) 0.5 10^3/uL (0.2-0.9) 03/25/25 01:40 Eos # (Auto) 0.1 10^3/uL (0.0-0.8) 03/25/25 01:40 Baso # (Auto) 0.1 10^3/uL (0.0-0.1) 03/25/25 01:40 Nucleated RBC % (auto) 0 % 03/25/25 01:40 Nucleated RBCs # 0.0 /100WBC 03/25/25 01:40 Sodium 142 mmol/L (136-145) 03/25/25 01:40 Potassium 3.5 mmol/L (3.5-5.1) 03/25/25 01:40 Chloride 105 mmol/L (98-107) 03/25/25 01:40 Carbon Dioxide 28 mmol/L (22-29) 03/25/25 01:40 Anion Gap 12.5 (5-19) 03/25/25 01:40 BUN 6 mg/dL (8-23) L 03/25/25 01:40 Creatinine 0.9 mg/dL (0.7-1.2) 03/25/25 01:40 GFR Calculation 83.7 mL/min (90-130) L 03/25/25 01:40 Glucose 99 mg/dL (65-115) 03/25/25 01:40 Calculated Osmolality 292 mOsm/kg (285-295) 03/25/25 01:40 Calcium 8.6 mg/dL (8.5-10.5) 03/25/25 01:40 Ammonia 20 umol/L (16-60) 03/25/25 01:40 Urine Color Yellow (Yellow) 03/25/25 04:30 Urine Appearance Clear (CLEAR) 03/25/25 04:30 Urine pH 7.0 (5-7) 03/25/25 04:30 Ur Specific [place] 1.006 (1.005-1.030) 03/25/25 04:30 Urine Protein Negative (Negative) 03/25/25 04:30 Urine Glucose (UA) Negative (Normal) 03/25/25 04:30 Urine Ketones Negative (Negative) 03/25/25 04:30 Urine Blood 1+ (Negative) A 03/25/25 04:30 Urine Nitrate Negative (Negative) 03/25/25 04:30 Urine Bilirubin Negative (Negative) 03/25/25 04:30 Urine Urobilinogen 1.0 mg/dL (Negative) 03/25/25 04:30 Ur Leukocyte Esterase Negative (Negative) 03/25/25 04:30 Urine RBC 3-5 /hpf (0-2) 03/25/25 04:30 Urine WBC 0-5 /hpf (0-5) 03/25/25 04:30 Ur Squamous Epith Cells 0-5 /hpf (0-5) 03/25/25 04:30 Amorphous Sediment Not Reportable 03/25/25 04:30 Urine Bacteria None seen /hpf (NONE) 03/25/25 04:30 Hyaline Casts 0.40 /lpf 03/25/25 04:30 Salicylates < 0.3 mg/dL (3-10) L 03/25/25 01:40 Urine Opiates Screen Negative ng/mL (Negative) 03/25/25 04:30 Acetaminophen < 5.0 ug/mL (10-30) L 03/25/25 01:40 Ur Barbiturates Screen Negative ng/mL (Negative) 03/25/25 04:30 Ur Phencyclidine Scrn Negative ng/mL (Negative) 03/25/25 04:30 Ur Amphetamines Screen Negative ng/mL (Negative) 03/25/25 04:30 U Benzodiazepines Scrn Positive ng/mL (Negative) H 03/25/25 04:30 Urine Cocaine Screen Negative ng/mL (Negative) 03/25/25 04:30 U Marijuana (THC) Screen Negative ng/mL (Negative) 03/25/25 04:30 Ethyl Alcohol < 10 mg/dL (0-10) 03/25/25 01:40 All radiology interpretation(s) finalized by discharge Discharge Plan Discharge Patient Disposition: Admitted As Inpatient Clinical Impression: Altered mental status, unspecified Condition: Stable Coding Level of Care Code ED Icing Maker for Paige Phipps
[2025-03-25 01:50] LABS: Basophils # 0.1 10^3/uL (0.0-0.1); Basophils % 0.9 %; Eosinophils # 0.1 10^3/uL (0.0-0.8); Eosinophils % 2.1 %; Hematocrit 42.5 % (37-53); Lymphocytes % 34.7 %; Mean Corpuscular HGB Conc 32.9 g/dL (30-55); Mean Corpuscular Volume 91.2 fl (82-101); Mean Platelet Volume 9.3 fL (7.4-10.4); Monocytes # 0.5 10^3/uL (0.2-0.9); Monocytes % 8.4 %; Neutrophils # 3.08 10^3/uL (1.8-7.7); Neutrophils % 53.6 %; Nucleated Red Blood Cells % 0 %; Platelet Count 142 10^3/cmm (157-399); Red Blood Count 4.66 10^6/uL (3.85-5.65); Red Cell Distribution Width 13.3 % (12.1-15.1); White Blood Count 5.74 10^3/uL (3.29-11.43)
[2025-03-25 02:07] LABS: Anion Gap 12.5 (5-19); Blood Urea Nitrogen 6 mg/dL (8-23); Calcium 8.6 mg/dL (8.5-10.5); Carbon Dioxide 28 mmol/L (22-29); Chloride 105 mmol/L (98-107); Creatinine Clr Calc Pharmacy 87.1898; Glomerular Filtration Rate 83.7 mL/min (90-130); Glucose 99 mg/dL (65-115); Osmolality Calculated 292 mOsm/kg (285-295); Potassium 3.5 mmol/L (3.5-5.1); Sodium 142 mmol/L (136-145)
[2025-03-25 02:10] LABS: Ammonia 20 umol/L (16-60)
[2025-03-25] MEDS: sodium chloride 0.9% 1,000 ML 999 ML IV ×2 (02:10→05:20)
[2025-03-25 02:20] LABS: Acetaminophen < 5.0 ug/mL (10-30); Alcohol Level < 10 mg/dL (0-10); Salicylate < 0.3 mg/dL (3-10)
--- NOTE | 2025-03-25 03:34 | PC.NURSE ---
Ambulated patient to bathroom and back. He is very unsteady walking. His has unstable gait. He requires assist x [address] Ndiaye notified.
[2025-03-25 04:52] LABS: Bilirubin Urine Negative (Negative); Blood Urine 1+ (Negative); Glucose Urine UA Negative (Normal); Ketones Urine Negative (Negative); Leukocyte Esterase Urine Negative (Negative); Nitrate Urine Negative (Negative); Protein Urine Negative (Negative); Specific Gravity, Urine 1.006 (1.005-1.030); Urine Appearance Clear (CLEAR); Urine Color Yellow (Yellow)
[2025-03-25 04:57] LABS: Add Urine Microscopic? YES; Bacteria Urine None Seen /hpf; Squamous Epithelial Cell Urine 0-5 /hpf (0-5); WBC Urine 0-5 /hpf (0-5)
[2025-03-25 04:59] LABS: Amphetamines Screen Urine Negative (Negative); Barbiturates Screen Urine Negative (Negative); Benzodiazepines Screen Urine Positive (Negative); Cocaine Screen Urine Negative (Negative); Opiate Screen Urine Negative (Negative); PCP Screen Urine Negative (Negative); THC Screen Urine Negative (Negative)
--- NOTE | 2025-03-25 05:39 | PM.HP ---
Providers/Chief Complaint Admitting Physician: Shoshana Nichols MD--- patient seen after 12 midnight for observation stay Primary Care Provider: Howard Munson DO Chief Complaint: FALL/AMS History of Present Illness Pablo Saucedo is a 69 year old male with medical history significant for anxiety disorder on Ativan at home at bedtime, hypertension COPD, who had presented to the emergency room after he had taken a fall and was also seen wandering outside in the backyard. The patient's neighbor decided to call the 911 to take the patient to the hospital for further evaluation. Patient could not make much of any sense in a drowsy state and feeling and acting drunk but not drunk. CBC were unremarkable except for platelets that was low and has been low since October 2024. Patient is of an observation stay to allow what ever medicine that he had taken to leave the system. CT had been done and it was unremarkable urine drug screen done was only remarkable for benzo that patient takes at home. Urinalysis was unremarkable for any urinary tract infection Follow-up with case management concerning discharge planning for a safer discharge. For patient cannot be discharged home safely in this state at the end of observation stay Review of Systems Narrative: System review of 10 organ review we are fairly unremarkable except for patient being drowsy and talking like someone who is quite sleepy but drowsy with me out garbled speech. NIHSS is 0 Medications/Allergies Home Medications ?Medication ?Instructions ?Recorded ?Confirmed ?Last Taken ?Type amlodipine 5 mg tablet 5 mg PO DAILY 03/25/22 11/20/24 10/29/22 07:00 History albuterol sulfate 90 mcg/actuation 2 puff inhalation Q6H PRN 04/27/22 11/20/24 Unknown History aerosol inhaler Shortness Of Breath alprazolam 1 mg tablet 1 mg PO BEDTIME PRN anxiety 04/27/22 11/20/24 04/26/22 History bupropion HCl 300 mg 24 hr tablet, 300 mg PO QAM 04/27/22 11/20/24 04/27/22 History extended release hydrocodone 10 mg-acetaminophen 1 - 2 tab PO TID PRN Pain 04/27/22 11/20/24 04/27/22 History 325 mg tablet buprenorphine 15 mcg/hour weekly 1 patch topical ONCE 10/08/23 11/21/24 Unknown History transdermal patch fluticasone propionate 50 1 spray intranasal DAILY 10/08/23 11/20/24 Unknown History mcg/actuation nasal spray,suspension celecoxib 100 mg capsule (Celebrex) 100 mg PO BID #28 caps 11/05/23 11/21/24 Unknown Rx galantamine 8 mg tablet 8 mg PO BID #180 tabs 05/17/24 11/21/24 Unknown Rx memantine 10 mg tablet 10 mg PO BID 90 days #180 tabs 05/17/24 11/21/24 Unknown Rx cholecalciferol (vitamin D3) 50 50 mcg PO DAILY 11/20/24 11/20/24 Unknown History mcg (2,000 unit) tablet (Vitamin D3) colestipol 1 gram tablet 1 g PO BID 11/20/24 11/20/24 Unknown History duloxetine 30 mg capsule,delayed 60 mg PO DAILY 11/20/24 11/20/24 Unknown History release ferrous sulfate 325 mg (65 mg 325 mg PO DAILY 11/20/24 11/20/24 Unknown History iron) tablet (Iron (ferrous sulfate)) furosemide 20 mg tablet 20 mg PO DAILY PRN swelling 11/20/24 11/20/24 Unknown History meloxicam 15 mg tablet 15 mg PO DAILY 11/20/24 11/20/24 Unknown History trazodone 100 mg tablet 100 mg PO BEDTIME 11/20/24 11/20/24 Unknown History fluticasone 250 mcg-salmeterol 50 1 inh inhalation BID 11/21/24 11/21/24 Unknown History mcg/dose blistr powdr for inhalation metoprolol tartrate 100 mg tablet 50 mg (1/2 x 100 mg) PO BID #30 11/24/24 11/20/24 Unknown Rx tabs Allergies Allergy/AdvReac Type Severity Reaction Status Date / Time No Known Allergies Allergy Verified 05/17/24 09:34 PFSH Acute PFSH: Medical History Tear of ulnar collateral ligament of left elbow Effusion of elbow joint, left Biceps tendinitis on left Cellulitis of left elbow Alzheimer disease Mild cognitive impairment with memory loss Neurologic gait disorder History of lung cancer History of Crohn's disease Paresthesia of skin Surgical History History of colon resection x2 History of back surgery 2012 Family History Brother CAD (coronary artery disease) Social History Smoking and tobacco/nicotine status: current every day tobacco/nicotine user (4-5 a day) Alcohol intake: never Substance/Drug Use: never Vitals/I&O/Wt Last Vital Signs Temp 98 F 03/25/25 01:28 Pulse 72 03/25/25 03:00 Resp 18 03/25/25 03:00 BP 154/106 03/25/25 03:00 Pulse Ox 98 03/25/25 03:00 O2 Del Method Room Air 03/25/25 03:00 03/24/25 03/24/25 03/25/25 14:59 22:59 06:59 Intake Total 1000 / 1000 Balance 1000 / 1000 Weight last 48 hrs Weight 99.79 kg Physical Exam Narrative: Generally patient has been seen and evaluated examination quite unremarkable except for 1 who is drowsy under the influence of some medication otherwise unremarkable. HEENT normocephalic/atraumatic neck neck is supple cardiovascular heart rate is regular lungs are pretty much clear abdomen soft nontender nondistended unremarkable extremities are intact no edema has good pulses neurology has no focality lab studies lab studies reviewed and noted. Data 03/25/25 01:40 03/25/25 01:40 A&P Assessment and plan (1) Altered mental status, unspecified: Change in mental status likely secondary to medication in the line of benzodiazepine and the likes Likely allowed this to wear out from the system. Case management to help with talking to the family and see how this patient can be supported patient was said to be living alone by himself in his own house. This is not ideal at this time. (2) Dizziness: Patient is drowsy and dizzy likely secondary to medication effect benzo and muscle relaxers. (3) Fall: Status post fall from being dizzy and no injuries sustained Plan GI and DVT prophylaxis in place PDMP PDMP Reviewed: Not Reviewed Attestations Medical Necessity Statement*: Patient is with change in mental status no source of infection having drowsy speech in a drowsy state on benzodiazepine at home would need to have this medication leave the system on the observation stay. Family related that this is not patient's baseline and this has been going on 2 days prior to this presentation patient qualified to be an observation stay Coding Level of Care Code 69369 Diagnoses Altered mental status, unspecified R41.82 Dizziness R42 Fall W19.XXXA Time Spent (min) 50
--- NOTE | 2025-03-25 07:26 | PC.NURSE ---
spoke with Keven Saucedo, gave update on pt status.
--- NOTE | 2025-03-25 09:45 | PC.PHAR ---
Pts' last [facility] med [facility] was updated in 11/24/24-pt will not answer any questions in the room. Med rec completed via last [facility] med list and [facility] list in [facility]. Unknown when pt last took any medications.
[2025-03-25] MEDS: pantoprazole 40 mg SDV IVP (11:44)
[2025-03-25] MEDS: docusate sodium 100 mg Capsule PO (11:44)
[2025-03-25] MEDS: heparin 5,000 unit/mL INJ 1 mL 5000 UNIT SUBCUT ×2 (11:44→22:08)
--- NOTE | 2025-03-25 11:45 | PC.NURSE ---
maintenance fluids delayed d/t having no IV pumps on floor.
[2025-03-25] MEDS: sodium chloride 0.9% 1,000 ML 100 ML IV (13:23)
--- NOTE | 2025-03-25 15:50 | P.PN_ITS ---
Subjective 2 Subjective: Seen this morning. Patient alert oriented x 2 however appears to be somewhat confused. Is a very poor historian. Vitals/I&O/Wt Last Vital Signs Temp 97.5 F L 03/25/25 15:39 Pulse 67 03/25/25 15:39 Resp 16 03/25/25 15:39 BP 154/81 03/25/25 15:39 Pulse Ox 99 03/25/25 15:39 O2 Del Method Room Air 03/25/25 15:39 03/25/25 03/25/25 03/25/25 06:59 14:59 22:59 Intake Total 1000 / 1000 1000 / 1000 Balance 1000 / 1000 1000 / 1000 Weight last 48 hrs Weight 82.1 kg Weight 99.79 kg Physical Exam 2 Narrative: General: Alert oriented x2, patient seen laying in bed appearing comfortable at this time HEENT: Normocephalic, atraumatic, EOMI, breathing room air. Cardio: Regular rate rhythm, normal S1-S2 Respiratory: Clear to auscultation bilaterally no wheezing or rhonchi GI: Abdomen soft, nontender, nondistended, bowel sounds + Extremities: No edema bilateral lower extremities Data 03/25/25 01:40 03/25/25 01:40 A&P Assessment and plan (1) Altered mental status, unspecified: Change in mental status likely secondary to medication in the line of benzodiazepine and the likes Likely allowed this to wear out from the system. Case management to help with talking to the family and see how this patient can be supported patient was said to be living alone by himself in his own house. This is not ideal at this time. (2) Dizziness: Patient is drowsy and dizzy likely secondary to medication effect benzo and muscle relaxers. (3) Fall: Status post fall from being dizzy and no injuries sustained Plan GI and DVT prophylaxis in place 03/25/2025 Patient denies having nausea vomiting diarrhea. I have taken care of him for therefore I am aware that he has a history of Crohn's disease. Patient does take memantine at home. He seems to be confused at this time. Check urine culture Add empiric ceftriaxone Check ammonia level, vitamin B12 level He does have a history of Alzheimer's disease listed in chart. He last saw Dr. Erickson in last year April 2024 Patient does have a history of brain aneurysm as well. He was last discharged in November 2024. As per last discharge summary apparently patient has been on hospice care and lives alone at home. He has a history of dementia Crohn's disease follows up in [place] oncology for right upper lobe lung cancer status post lobectomy. Unclear reasons at this time for patient's confusion. Will continue to monitor. PDMP PDMP Reviewed: Not Reviewed Attestations 2 Medical Necessity Statement*: Patient is with change in mental status no source of infection having drowsy speech in a drowsy state on benzodiazepine at home would need to have this medication leave the system on the observation stay. Family related that this is not patient's baseline and this has been going on 2 days prior to this presentation patient qualified to be an observation stay Diagnoses Altered mental status, unspecified R41.82 Dizziness R42 Fall W19.XXXA
[2025-03-25] MEDS: cefTRIAXone 1,000 mg SDV 1000 MG IVP (17:24)
[2025-03-25 17:37] LABS: Ammonia 25 umol/L (16-60)
[2025-03-25 17:54] LABS: Vitamin B12 216 pg/mL (232-1245)
[2025-03-26 01:49] VITALS: BP 160/78; PULSE 107; RESP 16; TEMP 36.7; O2SAT 94
[2025-03-26 05:02] VITALS: BP 148/86; PULSE 80; RESP 16; TEMP 36.7; O2SAT 100
[2025-03-26] MEDS: sodium chloride 0.9% 1,000 ML 100 ML IV ×2 (05:27→15:13)
[2025-03-26 06:21] LABS: Alanine Aminotransferase 10 U/L (0-41); Albumin Level 3.3 g/dL (3.5-5.2); Alkaline Phosphatase 85 U/L (40-130); Anion Gap 12.2 (5-19); Aspartate Amino Transferase 13 U/L (0-40); Blood Urea Nitrogen 3 mg/dL (8-23); Calcium 8.4 mg/dL (8.5-10.5); Carbon Dioxide 29 mmol/L (22-29); Chloride 105 mmol/L (98-107); Creatinine Clr Calc Pharmacy 79.4367; Globulin 2.4 g/dL (1.3-4.6); Glomerular Filtration Rate 83.7 mL/min (90-130); Glucose 92 mg/dL (65-115); Magnesium 1.7 mg/dL (1.7-2.3); Osmolality Calculated 292 mOsm/kg (285-295); Potassium 3.2 mmol/L (3.5-5.1); Sodium 143 mmol/L (136-145); Total Bilirubin 0.5 mg/dL (0.15-1.2); Total Protein 5.7 g/dL (6.6-8.7)
[2025-03-26 08:00] VITALS: BP 163/86; PULSE 71; RESP 17; TEMP 36.8; O2SAT 96
[2025-03-26] MEDS: pantoprazole 40 mg SDV IVP (09:30)
[2025-03-26] MEDS: heparin 5,000 unit/mL INJ 1 mL 5000 UNIT SUBCUT ×2 (09:30→21:19)
[2025-03-26 11:18] VITALS: BP 135/73; PULSE 75; RESP 17; TEMP 37; O2SAT 96
[2025-03-26] MEDS: cefTRIAXone 1,000 mg SDV 1000 MG IVP (15:13)
[2025-03-26 15:14] VITALS: BP 160/89; PULSE 81; TEMP 37.1; O2SAT 96
[2025-03-26] MEDS: potassium chloride ER 20 mEq Tablet 40 MEQ PO (15:39)
[2025-03-26] MEDS: cyanocobalamin 1,000 mcg Tablet 1000 MCG PO (15:39)
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
[2025-03-26 20:18] VITALS: BP 154/80; PULSE 79; RESP 17; TEMP 36.8; O2SAT 94
[2025-03-27] VITALS (7 sets, daily range): BP systolic 136–161; BP diastolic 72–104; PULSE 78–103; RESP 17–19; TEMP 36.6–36.9; O2SAT 93–98
[2025-03-27] MEDS: sodium chloride 0.9% 1,000 ML 100 ML IV ×2 (01:10→14:20)
[2025-03-27] MEDS: cyanocobalamin 1,000 mcg Tablet 1000 MCG PO (08:53)
[2025-03-27] MEDS: potassium chloride ER 20 mEq Tablet 40 MEQ PO (08:53)
[2025-03-27] MEDS: pantoprazole 40 mg SDV IVP (08:53)
[2025-03-27] MEDS: heparin 5,000 unit/mL INJ 1 mL 5000 UNIT SUBCUT ×2 (08:53→21:16)
--- NOTE | 2025-03-27 09:12 | PC.CHAP ---
Pastoral Care Encounter/Spiritual Assessment Type of Contact [] Declined register of wills visit [] Patient/Family/Request visit [] Outpatient visit [] Follow-up visit [] Physician referral [] Code/Alert [x] Routine visit [] Staff referral [] Actively dying [] Patient sleeping [] Family support [] [] Out of room [] Palliative care [] [] Receiving care in room [] Pre-surgical visit [] Trauma [] Long length of stay [] ICU visit [] Other: Relational/Emotional Strength [] Patient feels connected with others/family/visitors/staff [] Distress [] Loneliness/isolation [] Abandonment Spirituality of Patient [x] Person of Miri [] Attends Gnosticism of their Miri [x] Believes in Prayer [] Reads Bible or Adventism materials [] There are Spiritual issues to be addressed [facility] Manager Interventions [x] Prayer [x] Active listening [] Non-anxious presence [] Spiritual/emotional support [] Crisis/trauma care [] Spiritual counseling [] Bereavement support [] Provided bereavement packet [x] Provided Bible/devotional materials [] Provided toy/stuffed animal, coloring book to patient or family member [] Provided Communion [] Anointing/[place] [] Salvation [x] Completed spiritual assessment [] Other: Impact on Illness or Injury [] Angry [] Fearful [] Anxious [] Often cries [] Exhaustion [] Unable to work [] Unable to attend scientologist [] Unable to walk/stand [] Unable to read [] Unable to drive [] Unable to eat/drink [] Unable to sleep [] Unable to be with family [] Patient intubated [] Other: Summary Time spent with patient 10 min
[2025-03-27] MEDS: buPROPion XL (24 HR) 300 mg Tablet PO (12:17)
[2025-03-27] MEDS: amlodipine 5 mg Tablet PO (12:17)
--- NOTE | 2025-03-27 16:29 | P.PN_ITS ---
Subjective 2 Subjective: Hospital course, labs appreciated. No labs done today. Patient on examination awake and alert to self, date of , year. Thinks he is in a facility at [place]. Not aware of his son. Denies any nausea, vomiting, headache. Vitals/I&O/Wt Last Vital Signs Temp 97.9 F 03/27/25 12:04 Pulse 103 H 03/27/25 12:04 Resp 19 H 03/27/25 12:04 BP 155/104 03/27/25 12:04 Pulse Ox 95 03/27/25 12:04 O2 Del Method Room Air 03/26/25 15:14 03/27/25 03/27/25 03/27/25 06:59 14:59 22:59 Intake Total 1235 / 2931.667 1571.667 / 1571.667 Output Total 800 / 1150 400 / 400 Balance 435 / 5743.404 2333.667 / 1171.667 Weight last 48 hrs Weight 82.1 kg Physical Exam 2 Narrative: General: Alert oriented x2, patient seen laying in bed appearing comfortable at this time HEENT: Normocephalic, atraumatic, EOMI, breathing room air. Cardio: Regular rate rhythm, normal S1-S2 Respiratory: Clear to auscultation bilaterally no wheezing or rhonchi GI: Abdomen soft, nontender, nondistended, bowel sounds + Extremities: No edema bilateral lower extremities Data 03/25/25 01:40 03/26/25 05:01 A&P Assessment and plan (1) Altered mental status, unspecified: Could be multifactorial. Cannot rule out polypharmacy. Patient does seem to have baseline dementia. Resolving for now. Restart home medications at a lower dose. Continue with home dose of bupropion 300 mg daily, hold off on home dose of duloxetine. Restart home dose of Namenda 10 mg twice daily. Restart and change trazodone to 50 mg nightly. Sitter as needed. No concerns for infection for now. Hold off on any further antibiotics. (2) Dizziness: (3) Fall: Status post fall from being dizzy and no injuries sustained Plan Restart other chronic home medications including Flomax. Stop IV fluids. Protonix for PUD prophylaxis Restart home dose of Flomax. Heparin for DVT prophylaxis Cardiac diet. Discharge plan: Plan to discharge to SNF as per request from patient's DPOA/son and as he is not able to take care of himself at home and as per son patient is unstable on his feet and unsafe by himself. Physical therapy evaluation. PDMP PDMP Reviewed: Not Reviewed Attestations 2 Medical Necessity Statement*: Requires further hospitalization for management of altered mental status in setting of baseline dementia, dizziness, fall while safe discharge planning is sought Diagnoses Altered mental status, unspecified R41.82 Dizziness R42 Fall W19.XXXA
[2025-03-27] MEDS: memantine 5 mg tablet 10 MG PO (17:18)
[2025-03-27] MEDS: tamsulosin 0.4 mg Capsule PO (17:18)
[2025-03-27 19:31] LABS: Basophils % 0.4 %; Eosinophils % 0.2 %; Hematocrit 39.6 % (37-53); Lymphocytes % 18.4 %; Mean Corpuscular HGB Conc 33.1 g/dL (30-55); Mean Corpuscular Hemoglobin 30.5 pg (27-33); Mean Corpuscular Volume 92.1 fl (82-101); Mean Platelet Volume 9.9 fL (7.4-10.4); Monocytes # 0.5 10^3/uL (0.2-0.9); Monocytes % 9.3 %; Neutrophils # 3.92 10^3/uL (1.8-7.7); Neutrophils % 71.3 %; Nucleated Red Blood Cells % 0 %; Platelet Count 122 10^3/cmm (157-399); Red Cell Distribution Width 13.7 % (12.1-15.1); White Blood Count 5.49 10^3/uL (3.29-11.43)
[2025-03-27 19:46] LABS: Alanine Aminotransferase 11 U/L (0-41); Albumin Level 3.5 g/dL (3.5-5.2); Alkaline Phosphatase 83 U/L (40-130); Blood Urea Nitrogen 3 mg/dL (8-23); Calcium 8.3 mg/dL (8.5-10.5); Carbon Dioxide 22 mmol/L (22-29); Chloride 106 mmol/L (98-107); Creatinine Clr Calc Pharmacy 89.3663; Globulin 2.5 g/dL (1.3-4.6); Glomerular Filtration Rate 95.8 mL/min (90-130); Glucose 125 mg/dL (65-115); Osmolality Calculated 290 mOsm/kg (285-295); Sodium 141 mmol/L (136-145); Total Bilirubin 0.5 mg/dL (0.15-1.2)
[2025-03-27 19:56] LABS: Anion Gap 16.7 (5-19); Aspartate Amino Transferase 17 U/L (0-40); Potassium 3.7 mmol/L (3.5-5.1)
[2025-03-27] MEDS: acetaminophen 325 mg Tablet 650 MG PO (21:16)
[2025-03-27] MEDS: trazodone 100 mg Tablet 50 MG PO (21:16)
[2025-03-27] MEDS: sennosides 8.6 mg Tablet 17.2 MG PO (21:16)
[2025-03-27] MEDS: OLANZapine 5 mg TABLET PO (21:16)
[2025-03-28 04:00] VITALS: BP 134/87; PULSE 95; RESP 18; TEMP 36.8
[2025-03-28 05:40] LABS: Basophils % 0.6 %; Eosinophils # 0.1 10^3/uL (0.0-0.8); Hematocrit 40.3 % (37-53); Lymphocytes # 1.6 10^3/uL (0.8-4.8); Lymphocytes % 24.9 %; Mean Corpuscular HGB Conc 32.3 g/dL (30-55); Mean Corpuscular Volume 93.1 fl (82-101); Mean Platelet Volume 9.6 fL (7.4-10.4); Monocytes # 0.6 10^3/uL (0.2-0.9); Monocytes % 10.1 %; Neutrophils # 3.95 10^3/uL (1.8-7.7); Neutrophils % 63.1 %; Nucleated Red Blood Cells % 0 %; Platelet Count 149 10^3/cmm (157-399); Red Blood Count 4.33 10^6/uL (3.85-5.65); Red Cell Distribution Width 13.7 % (12.1-15.1); White Blood Count 6.26 10^3/uL (3.29-11.43)
[2025-03-28 05:56] LABS: Alanine Aminotransferase 10 U/L (0-41); Albumin Level 3.3 g/dL (3.5-5.2); Alkaline Phosphatase 79 U/L (40-130); Anion Gap 14.4 (5-19); Aspartate Amino Transferase 14 U/L (0-40); Blood Urea Nitrogen 3 mg/dL (8-23); Calcium 8.5 mg/dL (8.5-10.5); Carbon Dioxide 24 mmol/L (22-29); Chloride 109 mmol/L (98-107); Creatinine Clr Calc Pharmacy 87.1969; Globulin 2.4 g/dL (1.3-4.6); Glomerular Filtration Rate 95.8 mL/min (90-130); Glucose 94 mg/dL (65-115); Osmolality Calculated 294 mOsm/kg (285-295); Potassium 3.4 mmol/L (3.5-5.1); Sodium 144 mmol/L (136-145); Total Bilirubin 0.6 mg/dL (0.15-1.2); Total Protein 5.7 g/dL (6.6-8.7)
[2025-03-28 05:57] LABS: Magnesium 1.9 mg/dL (1.7-2.3)
[2025-03-28] MEDS: buPROPion XL (24 HR) 300 mg Tablet PO (05:58)
[2025-03-28] MEDS: memantine 5 mg tablet 10 MG PO ×2 (09:40→18:15)
[2025-03-28] MEDS: cyanocobalamin 1,000 mcg Tablet 1000 MCG PO (09:40)
[2025-03-28] MEDS: tamsulosin 0.4 mg Capsule PO ×2 (09:40→18:15)
[2025-03-28] MEDS: docusate sodium 100 mg Capsule PO ×2 (09:40→18:15)
[2025-03-28] MEDS: potassium chloride ER 20 mEq Tablet 40 MEQ PO (09:40)
[2025-03-28] MEDS: heparin 5,000 unit/mL INJ 1 mL 5000 UNIT SUBCUT ×2 (09:40→20:46)
[2025-03-28] MEDS: pantoprazole 40 mg SDV IVP (09:41)
[2025-03-28 11:18] VITALS: BP 164/92
[2025-03-28] MEDS: amlodipine 5 mg Tablet PO (11:19)
[2025-03-28 12:00] VITALS: BP 156/88; PULSE 106; RESP 17; TEMP 36.7; O2SAT 98
--- NOTE | 2025-03-28 12:11 | P.PN_ITS ---
Subjective 2 Subjective: No acute events overnight. Patient has had no agitation. On examination lying comfortably in bed. States he did not have a restful night as he was waking up again and again. Vitals/I&O/Wt Last Vital Signs Temp 98.2 F 03/28/25 04:00 Pulse 95 03/28/25 04:00 Resp 18 03/28/25 04:00 BP 164/92 03/28/25 11:18 Pulse Ox 95 03/27/25 23:28 O2 Del Method Room Air 03/27/25 23:28 03/27/25 03/28/25 03/28/25 22:59 06:59 14:59 Intake Total 480 / 2051.667 220 / 2271.667 240 / 240 Output Total 450 / 850 300 / 1150 Balance 30 / 1201.667 -80 / 1121.667 240 / 240 Weight last 48 hrs Weight 77.7 kg Weight 82.1 kg Physical Exam 2 Narrative: General: Alert oriented x2, patient seen laying in bed appearing comfortable at this time HEENT: Normocephalic, atraumatic, EOMI, breathing room air. Cardio: Regular rate rhythm, normal S1-S2 Respiratory: Clear to auscultation bilaterally no wheezing or rhonchi GI: Abdomen soft, nontender, nondistended, bowel sounds + Extremities: No edema bilateral lower extremities Data 03/28/25 05:09 03/28/25 05:09 A&P Assessment and plan (1) Altered mental status, unspecified: Most likely multifactorial. Cannot rule out polypharmacy. Patient does seem to have baseline dementia. Resolving for now. Continue with home medications at a lower dose. Continue with home dose of bupropion 300 mg daily, hold off on home dose of duloxetine. Continue with home dose of Namenda 10 mg twice daily and reduced dose of trazodone at 75 mg nightly. Sitter as needed. No concerns for infection for now. Hold off on any further antibiotics. (2) Dizziness: (3) Fall: Status post fall from being dizzy and no injuries sustained Plan Restart other chronic home medications including Flomax. Protonix for PUD prophylaxis Restart home dose of Flomax. Heparin for DVT prophylaxis Cardiac diet. Discharge plan: Plan to discharge to SNF as per request from patient's DPOA/son and as he is not able to take care of himself at home and as per son patient is unstable on his feet and unsafe by himself. Appreciate physical therapy evaluation. Patient for now is agreeable to does not want to go to skilled nursing for long-term. PDMP PDMP Reviewed: Not Reviewed Attestations 2 Medical Necessity Statement*: Requested hospitalization for management of altered mental status in setting of polypharmacy while safe discharge planning Diagnoses Altered mental status, unspecified R41.82 Dizziness R42 Fall W19.XXXA
[2025-03-28 16:00] VITALS: BP 149/89; PULSE 118; RESP 17; TEMP 36.5; O2SAT 96
--- NOTE | 2025-03-28 16:03 | PC.NURSE ---
Discharge: Pt family member will be here at 1900 to get pt. Pt has diagnosis of Alzheimer's and is a fall risk, not safe to send to discharge lounge.
[2025-03-28 20:39] VITALS: BP 159/84; PULSE 69; RESP 17; TEMP 36.8; O2SAT 94
[2025-03-28] MEDS: sennosides 8.6 mg Tablet 17.2 MG PO (20:46)
[2025-03-28] MEDS: OLANZapine 5 mg TABLET PO (20:46)
[2025-03-28] MEDS: trazodone 100 mg Tablet 75 MG PO (20:46)
== END 2025-03-28 23:00 | disposition home or self-care (01) ==
LOC: ER 05:15 → ER IP 05:18 → MEDSURG 13:44
PROVIDERS: Internal Medicine; Admitting Provider Internal Medicine; Emergency Provider Emergency Medicine; PCP Family Medicine; Visit Provider Student in an Organized Health Care Education/Training Program
DX: R41.82 Altered mental status, unspecified (principal); I10 Essential (primary) hypertension; J44.9 Chronic obstructive pulmonary disease, unspecified; F41.9 Anxiety disorder, unspecified; G30.9 Alzheimer's disease, unspecified; F02.80 Dementia in other diseases classified elsewhere, unspecified severity, without behavioral disturbance, psychotic disturbance, mood disturbance, and anxiety; W01.0XXA Fall on same level from slipping, tripping and stumbling without subsequent striking against object, initial encounter; F17.210 Nicotine dependence, cigarettes, uncomplicated; Z79.899 Other long term (current) drug therapy; K50.90 Crohn's disease, unspecified, without complications; Z86.79 Personal history of other diseases of the circulatory system; Z91.81 History of falling
CPT/HCPCS: 36415; 51701; 70450; 71045; 72125; 80048; 80053; 80306; 80307; 81001; 82140; 82607; 83735; 85025; 96372; 96374; 96375; 97110; 97116; 97161; 97167; 99285; G0378; J0696; J1644; J2470; J7030; J9999

== ENCOUNTER 2025-06-20 18:31 | Emergency (ER) | payer OTHER, SELFPAY ==
--- OUTSIDE RECORDS SUMMARY | 2025-06-20 13:56 | XMS_ITS | Continuity of Care Document ---
Author Name [facility] Organization [facility] Care Team Providers Care Fur Glazer Name Role Phone [facility] Unavailable Unavailable Problems Combined list of problems from Department of Defense and Veterans Affairs facilities. It does not include entries that were removed or entered in error. Problem Status Onset Date Problem Type Date of Resolution Comments Source Abscess of chest wall Active Condition [facility] Allergic Rhinitis (SCT 62127294) Active Condition [facility] Anxiety Active Condition [facility] Benign essential hypertension Active Condition Jan 20, 2022 Entered By: JANICE VALADEZ Comment: had whole brain radiation for his lung cancer [facility] BPH - benign prostatic hyperplasia Active Condition [facility] Cerebral atrophy Active Condition Dec 31, 2021 Entered By: JANICE VALADEZ Comment: moderate ischemic [facility] Crohn's disease Active Condition [facility] Depression (SCT 39321427) Active Condition [facility] Elevated PSA Active Condition [facility] Hearing loss Active Condition [facility] Insomnia Active Condition [facility] LBP - Low back pain Active Condition [facility] Neuropathy (nerve damage) Active Condition March 01, 2021 Entered By: JANICE VALADEZ Comment: post chemo [facility] Sleep Apnea (SCT [id number]) Active Condition March 11, 2021 Entered By: JANICE VALADEZ Comment: severe CPAP 9cm [facility] Small cell lung cancer Active Condition Nov 13, 2020 Entered By: JANICE VALADEZ Comment: pancoast RUL, metstatic + lymph nodes [facility] Thyroid function tests abnormal Active Condition [facility] Tobacco abuse Active Condition Nov Entered By: JANICE VALADEZ Comment: ?cyberknife? [facility] Diagnosis: ICD-10-CM Z71.89 Other specified counseling Active Diagnosis [facility] Diagnosis: ICD-10-CM K50.919 Crohn's disease, unspecified, with unspecified complications Active Diagnosis [facility] Diagnosis: ICD-10-CM G47.30 Sleep apnea, unspecified Active Diagnosis [facility] Diagnosis: ICD-10-CM Z46.1 Encounter for fitting and adjustment of hearing aid Active Diagnosis [facility] Medications Combined list of outpatient medications from Department of Defense and Veterans Affairs facilities.Medications provided include 1) outpatient medications from the last 15 months, and 2) patient-reported medications. Medication Details Route Status Patient Instructions Prescription Expires Prescription Number Last Dispense Date Ordering Provider Order Date Order Qty Source AMLODIPINE BESYLATE 5MG TAB TAKE ONE TABLET BY MOUTH ONCE A DAY ORAL DISCONT INUED 05/20/2025 [id number] MENDEZ BESS 2023 90 [facility] BUPRENORPHI [facility] 20MCG/HR PATCH APPLY 1 PATCH TO SKIN SITE EVERY WEEK - REMOVE OLD PATCH BEFORE APPLYING NEW PATCH. (EXTERNA L USE ONLY) TRANSD ERMAL DISCONT INUED 11/09/2024 [id number] CYNDI WOLFE 2023 4 [facility] DULOXETINE HCL 30MG CAP,EC TAKE ONE CAPSULE BY MOUTH ONCE A DAY DO NOT ABRUPTLY DISCONTI NUE MEDICATI ON. ORAL DISCONT INUED 04/20/2025 [id number] ALEXI ALAN 2023 30 [facility] FLUTICASONE 250MCG/SALM ETEROL 50MCG INHL,ORAL,D ISKUS,60 INHALE 1 INHALATI ON BY ORAL INHALATI ON TWICE A DAY (OPEN DISKUS; CLICK ONLY ONCE; MAY INHALE TWICE TO COMPLETE DOSE; CLOSE WHEN FINISHED ) RINSE MOUTH AND SPIT AFTER EACH USE. RESPIR ATORY (INHAL ATION) ACTIVE 08/03/2025 [id number] CAYETANO GREEN 2023 1 [facility] GALANTAMINE HYDROBROMID E 8MG TAB TAKE ONE TABLET BY MOUTH TWICE A DAY WITH MORNING AND EVENING MEALS. WATCH FOR NAUSEA. ORAL 05/18/2025 [id number] JESUS ZAMORANO 2023 180 [facility] MEMANTINE HCL 10MG TAB TAKE ONE TABLET BY MOUTH TWICE A DAY FOR 90 DAYS ORAL 05/18/2025 [id number] JESUS ZAMORANO 2023 180 [facility] METOPROLOL TARTRATE 100MG TAB TAKE ONE TABLET BY MOUTH TWICE A DAY TAKE WITH OR IMMEDIAT ZAY FOLLOWIN G FOOD. ORAL 12/16/2024 [id number] JOVANI WARE 2023 180 [facility] TIOTROPIUM 18MCG CAP,INHL,30 INHALE 1 CAPSULE ORAL INHALATI ON ONCE A DAY (FOR ORAL INHALATI ON USING SPECIAL HANDIHAL ER ONLY) - DO NOT SWALLOW CAPSULES NOTE: 1 CAPSULE = 2 INHALATI ONS RESPIR ATORY (INHAL ATION) 04/20/2025 [id number] ALEXI ALAN NE JESUS MANUEL 2023 1 [facility] TRAZODONE HCL 50MG TAB TAKE ONE TABLET BY MOUTH AT BEDTIME ORAL DISCONT INUED 04/20/2025 [id number] ALEXI ALAN 2023 30 [facility] Immunizations Combined list of available immunizations from the Department of Defense and Veterans Affairs facilities. Immunization Series Date Given Administered By Site Reaction Lot Number CVX Code Drug Electromedical Service Engineer Status Comments Source COVID-19 ([employer]), MRNA, LNP-S, PF, TEMI-SUCROSE, 30 MCG/0.3 ML (AGES 12+ YEARS) 6 2023 309 complet ed HISTORICA L INFORMATI ON - FROM OTHER REGISTRY, [facility] INFLUENZA, HIGH-DOSE, TRIVALENT, PF 5 2023 135 complet ed HISTORICA L INFORMATI ON - FROM OTHER [facility], [facility] INFLUENZA, HIGH-DOSE, QUADRIVALENT, PF 4 2022 197 complet ed HISTORICA L INFORMATI ON - FROM OTHER [facility], [facility] COVID-19 (MODERNA), MRNA, LNP-S, BIVALENT, PF, 50 MCG/0.5 ML OR 25MCG/0.25 ML DOSE 5 2021 229 complet ed HISTORICA L INFORMATI ON - FROM OTHER REGISTRY, [facility] INFLUENZA, HIGH-DOSE, QUADRIVALENT, PF 3 2021 197 complet ed HISTORICA L INFORMATI ON - FROM OTHER REGISTRY, [facility] COVID-19 (MODERNA), MRNA, LNP-S, PF, 100 MCG/0.5ML DOSE OR 50 MCG/0.25ML DOSE 4 2021 207 complet ed HISTORICA L INFORMATI ON - FROM OTHER REGISTRY, [facility] COVID-19 (MODERNA), MRNA, LNP-S, PF, 100 MCG/0.5ML DOSE OR 50 MCG/0.25ML DOSE 3 2020 207 complet ed HISTORICA L INFORMATI ON - FROM OTHER REGISTRY, [facility] IN[facility], HIGH-DOSE, QUADRIVALENT, PF 2 2020 197 complet ed HISTORICA L INFORMATI ON - FROM OTHER REGISTRY, [facility] TDAP 2020 115 complet ed [facility] COVID-19 (MODERNA), MRNA, LNP-S, PF, 100 MCG/0.5 ML DOSE 2 [address] [facility] COVID-19 (MODERNA), MRNA, LNP-S, PF, 100 MCG/0.5ML DOSE OR 50 MCG/0.25ML DOSE 1 2020 207 complet ed HISTORICA L INFORMATI ON - FROM OTHER REGISTRY, [facility] COVID-19 (MODERNA), MRNA, LNP-S, PF, 100 MCG/0.5 ML DOSE 1 [address] [facility] INFLUENZA, INJECTABLE, QUADRIVALENT, PRESERVATIVE FREE 2019 150 complet ed [facility] PNEUMOCOCCAL POLYSACCHARID E PPV23 2019 33 complet ed [facility] INFLUENZA, INJECTABLE, QUADRIVALENT, PRESERVATIVE FREE 2019 150 complet ed [facility] INFLUENZA, SPLIT VIRUS, QUADRIVALENT, PRESERVATIVE 1 2019 158 complet ed HISTORICA L INFORMATI ON - FROM OTHER REGISTRY, [facility] N ZOSTER RECOMBINANT 2 2018 187 complet ed [facility] ZOSTER RECOMBINANT [address] [facility] ZOSTER RECOMBINANT [address] [facility] INFLUENZA, UNSPECIFIED FORMULATION 2017 88 complet ed PCP office - civilian [id number]_GO E REIMB INFLUENZA, UNSPECIFIED FORMULATION 2016 88 complet ed [facility] N PNEUMOCOCCAL CONJUGATE PCV 13 1 2015 133 complet ed HISTORICA L INFORMATI ON - FROM OTHER REGISTRY, [facility] Encounters Combined list of: 1) Encounters from Department of Veterans Affairs facilities going backup to the last 18 months, not all VA inpatient encounters are included; 2) Encounters from the Department of Defense facilities going backup to 280 months. Location Location Details Encounter Type Encounter Number Reason For Visit Attending Provider ADM Date DC Date Status Disposition Source [facility] Outpatient Encounter [id number] 12/20 [facility] Outpatient Encounter [id number] 12/29 [facility] FEE [id number] Diagnos is: ICD-10- CM Z46.1 Encount er for fitting and adjustm ent of hearing aid LUIS MANUEL BURGESS RT P 01/03 [facility] [facility] HEARING AID REPAIR/MOD IFYING [id number] Diagnos is: ICD-10- CM Z46.1 Encount er for fitting and adjustm ent of hearing aid ADITYAJUAN MANUELAnkur RT P 01/03 [facility] Outpatient Encounter [id number] 01/11 [facility] Outpatient Encounter [id number] 01/12 [facility] Outpatient Encounter [id number] 01/24 [facility] QNHP OL DIG ASSMT&MGMT 5-10 [id number] Diagnos is: ICD-10- CM K50.919 Crohn's disease , unspeci fied, with unspeci fied complic atNADIYA Guzman V 01/26 [facility] Outpatient Encounter [id number] 01/26 [facility] Outpatient Encounter [id number] 02/01 [facility] Outpatient Encounter [id number] 02/14 [facility] Outpatient Encounter [id number] 02/14 [facility] Outpatient Encounter [id number] 02/15 [facility] Outpatient Encounter [id number] 02/21 [facility] POS AIRWAY PRESSURE CPAP [id number] Diagnos is: ICD-10- CM G47.30 Sleep apnea, unspeci fiYURI Prasad 02/21 [facility] Outpatient Encounter [id number] 03/02 [facility] Encounter [id number] 03/30 [facility] Outpatient Encounter [id number] 04/11 [facility] Outpatient Encounter [id number] 04/27 [facility]counter [id number] 05/09 [facility]counter [id number] 05/11 [facility] Encounter [id number] 05/16 [facility] Encounter [id number] 05/17 [facility] Encounter [id number] 05/19 [facility] Encounter [id number] 06/15 [facility] Encounter [id number] 06/22 [facility] Outpatient Encounter [id number] 06/27 [facility] Outpatient Encounter [id number] 07/26 [facility] Outpatient Encounter [id number] 08/02 [facility] Outpatient Encounter [id number] 08/02 [facility] En[facility] [id number] 08/02 [facility] En[facility] [id number] [id number] 08/03 [facility] Outpatient Encounter [id number] 08/03 [facility] Outpatient Encounter [id number] 08/17 [facility] Outpatient Encounter [id number] [id number] 08/17 [facility] Outpatient Encounter [id number] 08/18 [facility] Outpatient Encounter [id number] [id number] 08/29 [facility] Outpatient Encounter [id number] 09/01 [facility] Out[facility] Encounter [id number] 09/14 [facility] Outpatient Encounter [id number] 09/23 [facility] Encounter [id number] 10/13 [facility] Encounter [id number] 10/14 [facility] Encounter [id number] 10/28 [facility] Outpatient Encounter [id number] 11/02 [facility] Outpatient Encounter [id number] DANYELLE DE LUNA L 11/21 [facility] Encounter [id number] 12/13 [facility] Encounter [id number] Hector MCKEON 12/13 [facility] Encounter [id number] [id number] Hector MCKEON 12/15 [facility] Encounter [id number] 12/16 [facility] Outpatient [facility]counter [id number] Hector MCKEON 12/20 [facility] Outpatient [facility]counter [id number] 12/20 [facility] Outpatient Encounter [id number] Hector MCKEON 12/22 [facility] Outpatient Encounter [id number] 01/02 [facility] Outpatient Encounter [id number] 01/27 [facility]counter [id number] 01/30 [facility] Outpatient Encounter [id number] 01/31 [facility] Outpatient Encounter [id number] 01/31 [facility] Outpatient Encounter [id number] 02/09 [facility] Outpatient Encounter [id number] Jett AHUMADA A 02/15 [facility] Outpatient Encounter [id number] 02/15 [facility] Outpatient Encounter [id number] 03/14 [facility] Outpatient Encounter [id number] DANYELLE DE LUNA YAIR L 03/27 [facility] PH1 ASSMT&MGMT NQHP 5-10 [id number] Diagnos is: ICD-10- CM Z71.89 Other specifi ed budget counselor ing JEREMIAHRENANMATTHIEU CELSO L 03/28 [facility] PH1 ASSMT&MGMT NQHP 11-20 [id number] Diagnos is: ICD-10- CM Z71.89 Other specifi ed budget counselor ing MATTHIEU DANIELS CELSO L 05/12 [facility] Outpatient Encounter [id number] 05/18 [facility] Outpatient Encounter [id number] 05/18 [facility] [id number] Diagnos is: ICD-10- CM K50.919 Crohn's disease , unspeci fied, with unspeci fied complic ations NYASIA,GRA CE A 05/23 [facility] PH1 ASSMT&MGMT NQHP 5-10 [id number] Diagnos is: ICD-10- CM Z71.89 Other specifi ed budget counselor ing MATTHIEU DANIELS CELSO L 05/29 [facility] PH1 ASSMT&MGMT NQHP 5-10 [id number] Diagnos is: ICD-10- CM Z71.89 Other specifi ed budget counselor MATTHIEU Boyle 06/01 [facility] Social History Combined list of available smoking, tobacco, and other social history from Department of Defense and Veterans Affairs facilities. Social History Type Response Date Comment Sourc e Tobacco smoking status NHIS VA-TOBACCO USER EVERY DAY 06/17/2022 [facility] History of tobacco use [place] DOES[place] USE WI 30 MIN WAKEUP 06/17/2022 [facility] History of tobacco use [place]-TO[place]ACCO USER E VERY DAY 11/13/2020 [facility] History of tobacco use VA-TOBACCO USE CO UNSEL YES 05/03/2019 [facility] History of tobacco use TOBACCO USER OFFE RED MEDS 07/27/2018 [facility] History of tobacco use TOBACCO USER OFFE RED MEDS 01/06/2018 [facility] History of tobacco use TOBACCO USER OFFE RED MEDS 09/04/2017 [facility] History of tobacco use TOBACCO USER OFFE RED MEDS 08/21/2017 [facility]
[2025-06-20 18:32] VITALS: BP 124/80; PULSE 72; RESP 17; TEMP 36.4; O2SAT 94; BMI 24.3
--- OUTSIDE RECORDS SUMMARY | 2025-06-20 18:57 | XMS_ITS | Clinical Summary ---
Author Organization [facility] Address [address] [place] [address] Care Team Providers Care Software Asset Manager Name Role Phone Howard Munson Primary Care Provider [phone] Allergies No known active allergies Medications sildenafiL (VIAGRA) 50 mg tabletIndication s:Erectile dysfunction, unspecified erectile dysfunction type Take 1 Tablet (50 mg) by mouth 1 time daily as needed for Erectile Dysfunction. 12 Tablet 3 Active naloxone (NARCAN) 4 mg/spray [place], Non-Aerosol EMERGENCY USE ONLY: Administer 1 spray (4 mg) in one nostril one time. May repeat in alternating nostrils every 2-3 min until responsive or EMS arrives. 2 Each 3 3 Active Additional Information Patient not taking.Reported on 12/02/2024 famotidine (PEPCID) 20 mg tablet Take 1 Tablet (20 mg) by mouth daily at bedtime. 31 Tablet 2 3 Active fluticasone propionate (FLONASE) 50 mcg/spray [place], Suspension nasal inhalerIndicatio ns:Allergic rhinitis, unspecified seasonality, unspecified trigger Administer 2 Sprays in each nostril daily. 16 Gram 11 3 Active furosemide (LASIX) 40 mg tabletIndication s:Localized edema Take 1 Tablet (40 mg) by mouth daily. 30 Tablet 1 4 Active albuterol sulfate HFA 90 mcg/actuation aerosol inhaler Take 1 Puff by inhalation every 4 hours as needed for Shortness of Breath. 8.5 Gram 3 4 Active inhalational spacing device (Microchamber) Spacer Use with albuterol inhaler 1 Each 4 Active Additional Information Patient not taking.Reported on 12/02/2024 tiotropium (Spiriva with HandiHaler) 18 mcg capsuleIndicatio ns:Chronic obstructive pulmonary disease, unspecified COPD type (CMS/HCC) Take 1 Capsule (18 mcg) by inhalation daily. 30 Capsule 11 4 Active ferrous sulfate 325 mg (65 mg iron) tablet Take 1 Tablet (325 mg) by mouth daily. 30 Tablet 1 4 Active metoprolol tartrate (LOPRESSOR) 100 mg tabletIndication s:Essential (primary) hypertension Take 1 Tablet (100 mg) by mouth 2 times daily. 180 Tablet 3 4 Active colestipoL (COLESTID) 1 gram tablet 1 Gram 2 times daily. 4 Active fluticasone propion-salmeter oL (Wixela Inhub) 250-50 mcg/dose disk inhalerIndicatio ns:Chronic obstructive pulmonary disease, unspecified COPD type (CMS/HCC) Take 1 Puff by inhalation 2 times daily. 60 Each 5 4 Active DULoxetine (Cymbalta) 30 mg Capsule, Delayed Release(E.C.)Ind ications:Depress carlos disorder,Alzheim er disease (CMS/HCC) Take 1 capsule once a day for 2 weeks then increase to BID. 60 Capsule 5 4 Active traZODone (DESYREL) 100 mg tabletIndication s:Insomnia, unspecified type Take 1 Tablet (100 mg) by mouth daily at bedtime. 30 Tablet 2 5 Active ALPRAZolam (XANAX) 1 mg tabletIndication s:Palliative care by specialist,Insom rafael, unspecified type,Situational mixed anxiety and depressive disorder Take 1 Tablet (1 mg) by mouth daily at bedtime. 30 Tablet 2 5 Active HYDROcodone-acet aminophen (NORCO) 10-325 mg TabletIndication s:Hospice care Take 1-2 Tablets by mouth 2 times daily as needed for Pain, Moderate. Max Daily Amount: 4 Tablets 60 Tablet 5 Active meloxicam (MOBIC) 15 mg tablet Take 15 mg by mouth daily. 5 Active loperamide (IMODIUM) 2 mg capsuleIndicatio ns:Crohn's disease of both small and large intestine with other complication (CMS/HCC) Take 1 Capsule (2 mg) by mouth every 12 hours. 120 Capsule 3 5 Active bumetanide (BUMEX) 2 mg tablet Take 1 Tablet by mouth daily. 5 Active OLANZapine (ZyPREXA) 5 mg tablet Take 5 mg by mouth daily at bedtime. 5 Active amLODIPine (NORVASC) 5 mg tabletIndication s:Essential (primary) hypertension Take 1 Tablet (5 mg) by mouth daily. 90 Tablet 3 5 Active buPROPion HCL (WELLBUTRIN XL) 300 mg Extended Release 24 hour tabletIndication s:Depressive disorder Take 1 Tablet (300 mg) by mouth daily. 90 Tablet 1 5 Active cyanocobalamin 1,000 mcg TabletIndication s:Vitamin B12 deficiency (non anemic),Neuropat hy Take 1 Tablet (1,000 mcg) by mouth daily. 100 Tablet 3 5 Active galantamine (RAZADYNE) 8 mg tablet Take 8 mg by mouth 2 times daily. 4 Active tiZANidine (ZANAFLEX) 4 mg Tablet Take 1 Tablet by mouth 3 times daily. 5 Active tamsulosin (FLOMAX) 0.4 mg capsuleIndicatio ns:Benign prostatic hyperplasia, unspecified whether lower urinary tract symptoms present Take 1 Capsule (0.4 mg) by mouth 2 times daily. 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 Paresthesia of skin 12/16/2023 S/P lumbar fusion 03/24/2023 Nicotine dependence, cigarettes, uncomplicated 0 11/27/2022 Left arm cellulitis 11/15/2022 Cellulitis of elbow 11/13/2022 Overview (11/13/2022): Left COLLEEN on CPAP 06/13/2022 Allergic rhinitis 06/13/2022 Anxiety 06/13/2022 Essential (primary) hypertension 06/13/2022 Benign prostatic hyperplasia 06/13/2022 Cerebral atrophy 06/13/2022 Overview (06/13/2022): Dec 31, 2021 Entered By: CHRISTIANO VALADEZ Comment: moderate ischemic Depressive disorder 06/13/2022 Elevated PSA 06/13/2022 Hearing loss 06/13/2022 Insomnia 06/13/2022 Low back pain 06/13/2022 Neuropathy 06/13/2022 Overview (06/13/2022): March 01, 2021 Entered By: CHRISTIANO VALADEZ Comment: post chemo Sensorineural hearing loss, bilateral 06/13/2022 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 Year symptoms began: 2004. Phenotype: Stricturing (B2) without perianal disease. Distribution: ileocolonic (L3) without upper GI disease (L4). Extraintestinal manifestations: none. Prior treatments: Previously treated with Asacol, Entocort, prednisone, colestipol, loperamide, Humira, Imuran, 6-MP with LFT elevation, but no documented 6-MMP, methotrexate 25 mg weekly with Humira 40 mg weekly (discontinued as felt to contribute to non-healing breast abscess). Entyvio with mucosal healing but persistent diarrhea. Interruptions in his Entyvio due to shifts in insurance. Current treatment: restarted on entyvio in March 2019 with prednisone taper Prior surgeries: ileocolonic resection in 2005 for ileal stricture and repeat ileocolonic resection in 2012. Endoscopies: Colonoscopy in December 2018 showed active ileitis in the neoterminal ileum. The biopsies from the colon showed no inflammation. Imaging: No recent images related to his disease Last Assessment & Plan: Historically the patient has been in remission on Entyvio and not by recurrence of breast abscess. We believe this has been a safe ineffective choice for him. We would like him to continue with Entyvio and at some point likely after at least the 2nd or 3rd maintenance dose, plan for a repeat colonoscopy to verify remission. As his symptoms have only just improved over the last 2 days, we will give him prednisone 20 mg for 1 week and then 10 mg for 1 week to get him through his 1st maintenance dose 1. Continue Entyvio 2. Offer brief prednisone taper to get him through his 1st maintenance dose 3. Needs repeat lab work every 3 months for monitoring 4. Will need repeat colonoscopy to verify remission after at least 2nd or 3rd maintenance dose. Added automatically from request for surgery [id number] Added automatically from request for surgery [id number] 01/11/24: Colonoscopy: - Moderately to markedly active ileitis with villous blunting Resolved Problems Problem Noted Date Diagnosed Date Resolved Date Small cell lung cancer 03/23/202012/18 Cancer Staging:Clinical:Stage IIIB(cT4, cN2, cM0) - Signed by Clifford Lira MD on 04/25/2020 Encounters Date Type Department Care Team Description 05/09/[address] [address] Howard Munson, Benign prostatic hyperplasia, unspecified whether lower urinary tract symptoms present (Primary Dx) 05/08/2025 - 05/08/2025 11:59 PM CDT Hospital Encounter [facility] [address] [place] [address] Ambulance, [facility] Discharge Disposition: Home or Self Care 05/04/2025 10:00 AM CDT Office Visit [address] [address] Howard Munson DO Alzheimer disease (CMS/HCC) (Primary Dx); Mixed simple and mucopurulent chronic bronchitis (CMS/HCC); Crohn's disease of both small and large intestine with other complication (CMS/HCC); Vitamin B12 deficiency (non anemic); Neuropathy; Neurologic gait disorder 05/04/2025 12:15 AM CDT - 05/04/2025 11:59 PM CDT Hospital Encounter [facility] [address] [place] [address] Ambulance, [facility] Discharge Disposition: Home or Self Care 04/06/2025 Abstract [facility] [address] [place] [address] [address] [place] [phone] Kvng Brown MD 04/03/[address] [phone] Howard Munson DO Depressive disorder (Primary Dx); Essential (primary) hypertension 04/03/2025 Refill [facility] [address] [place] [address] Radha Leija DO Essential (primary) hypertension 03/30/2025 2:00 PM CDT Office Visit [address] [address] Howard Munson DO Alzheimer disease ([facility]/HCC) (Primary Dx); Frail elderly; Hospice care patient 03/30/2025 Orders Only [facility] HIM [address] [place] [phone] Provider, Abstract 03/28/2025 Telephone [facility] [address] [address] Howard Munson DO Medical Records 03/25/2025 2:40 PM CDT - 03/25/2025 11:59 PM CDT Hospital Encounter [facility] [address] [place] [phone] Ambulance, [facility] Discharge Disposition: Short term general hospital from Last 3 Months Immunizations Immunization Administration Dates Next Due (ADACEL/BOOSTRIX)(10 YR UP) TDAP VACCINE, 0.5ML, IM 03/01/2021 (Moderna Bivalent)(6 Mos Up) COVID-19 Vaccine - Emergency Use Authorization, MRNA(Pf) 50 Mcg/0.5 Ml Im Susp 08/04/2022 (PREVNAR 13)(6 WKS UP) PNEUM OCOCCAL CONJUGATE (PCV13) 0.5 ML, IM 03/19/2016 (SHINGRIX)(50 YRS UP) ZOSTER VACCINE RECOMBINANT, 0.5 ML, IM 05/11/2019,11/18/2018,08/12/2018 (SPIKEVAX) (12 YRS UP PRIMAR Y SERIES) COVID-19 VACCINE - MRNA-1273(PF) 100 MCG/0.5 ML IM SUSP 01/14/2021,01/04/2021,12/17/2020,12/06 INFLUENZA VACCINE HIGH DOSE QUADRIVALENT 65 YR UP PF IM 08/29/2024,07/28/2023,08/11/2022,08/21 INFLUENZA VACCINE QUADRIVALE NT 6 MOS UP IM 10/25/2019 INFLUENZA VACCINE QUADRIVALE NT 6 MOS UP PF IM 2019 Pneumococcal Polysaccharide Vacc 23-usha IM SCHIP 11/09/2019 Family History Medical History Relation Name Comments Breast Cancer Mother Colon Cancer Neg Hx Relation Name Status Comments Mother Social History Tobacco Use Types Packs/Day Years Used Date Smoking Tobacco: Some Days Cigarettes 0.3 54.7 Started: 10/1970 Passive Smoke Exposure: Past Smokeless Tobacco: Never Tobacco Cessation:Ready to Q uit: Yes; Counseling Given: Not Answered Comments:Pt quit 2 weeks ago. Alcohol Use Standard Drinks/Week Comments Never 0 (1 standard drink = 0.6 oz pur e alcohol) Feeling Safe Answer Date Recorded Are you in a relationship wi th someone who hurts you emotionally and/or physically? 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 Gender Identity Not on file Sexual Orientation Not on file Last Filed Vital Signs Vital Sign Reading Time Taken Comments Blood Pressure 122/74 05/04/2025 10:16 AM CDT Pulse 80 05/04/2025 10:16 AM CDT Temperature 36.6 C (97.9 F) 05/04/2025 10:16 AM CDT Respiratory Rate 16 05/04/2025 10:1 6 AM CDT Oxygen Saturation 95% 05/04/2025 10: 16 AM CDT Room Air Inhaled Oxygen Concentration - - Weight 77.5 kg (170 lb 12.8 oz) 025 10:16 AM CDT Height 175.3 cm (5' 9 ) 05/04/2025 10:1 6 AM CDT Body Mass Index 25.22 05/04/2025 10:16 AM CDT Plan of Treatment Upcoming Encounters Date Type Department Care Team (Late st Contact Info) Description 08/07/2025 1:00 PM CDT Office Visit [facility] Pulmon[facility] [address] [place] [address] Dennys Carmona [facility] [address] [place] [address] 08/10/2025 10:20 AM CDT Office Visit [facility] Family Medicine [address] [phone] Ana Hansen, [facility] [address] [phone] Health Maintenance Due Date Last Done Comments FIT-DNA Q 3 years 2000 FIT/FOBT Q 1 year 2000 Flex Sig/CT Colonography Q 5 years 2000 RSV VACCINE (60+ or ) (1 - Risk 60-74 years 1-dose series) 2015 Abdominal Aortic Aneurysm (A AA) Screening 2020 PNEUMOCOCCAL VACCINE 50+ YEA RS (3 of 3 - PCV20 or PCV21) 11/09/2024 11/09/2019, 03/19/2016 COLORECTAL SCREENING 01/06/2025 01/07/2024, 01/07/2024, 12/26/2019, Additional history exists Colorectal Cancer Screening 01/06/2025 INFLUENZA VACCINE (#1) 2025 , 08/29/2024, 07/28/2023, Additional history exists COVID-19 Vaccine (2023-2 5 season) 2025 09/23/2024, 08/04/2022, 02/22/2022, Additional history exists Pre-Diabetes and Diabetes Screening 04/19/2027 04/19/2024, 07/28/2023, 11/09/2019 DTAP/TDAP/TD VACCINES (2 - T d or Tdap) 03/01/2031 03/01/2021 ZOSTER VACCINE Completed 05/11/2019, 10/21, 08/12/2018 Medical Devices Implanted Type Area Systems Mechanic Device Identifier Shelf Expiration Date Model / Serial / Lot Marker Fiducial Sprloc Coil 0.9mm [id number] - [id number] Implanted:Qty: 3 on 05/08/2021 by Hasmukh Calderón MD at [facility] Other [employer] 02/24/2025 [id number] / / [id number] Procedures Procedure Name Priority Date/Time Associated Diagnosis Comments BASIC METABOLIC PANEL Routine 03/25/2025 3:05 PM CDT HEMOGLOBIN A1C Routine 04/19/2024 11:58 AM CDT Fatigue, unspecified type COLONOSCOPY REPORT 01/07/2024 2: 30 PM CDT from Last 3 Months or Most Recently Relevant to Health Maintenance Results * BASIC METABOLIC PANEL (03/25/2025 3:05 PM CDT) Blood us Abstract Provider CHEMISTRY ORDERABLES Final Res ult * (ABNORMAL) HEMOGLOBIN A1C (04/19/2024 11:58 AM CDT) HEMOGLOBIN A1C 5.9(H) <5.7 % of total Hgb [facility] Comment: For someone without known diabetes, a hemoglobin A1c value between 5.7% and 6.4% is consistent with prediabetes and should be confirmed with a follow-up test. For someone with known diabetes, a value <7% indicates that their diabetes is well controlled. A1c targets should be individualized based on duration of diabetes, age, comorbid conditions, and other considerations. This assay result is consistent with an increased risk of diabetes. Currently, no consensus exists regarding use of hemoglobin A1c for diagnosis of diabetes for children. ESTIMATED AVERAGE GLUCOSE (MG/DL) 123 mg/dL [facility] ESTIMATED AVERAGE GLUCOSE (MMOL/L) 6.8 mmol/L [facility] Comment: This test was performed on the Nery nigel c503 platform. Effective 01/04/24, a change in test platforms from the Polo [employer] Cost Estimator to the Nery nigel c503 may have shifted HbA1c results compared to historical results. Based on laboratory validation testing conducted at [facility], the Nery platform relative to the Polo platform had an average increase in HbA1c value of < or = 0.3%. This difference is within accepted variability established by the National Glycohemoglobin Standardization Program. Note that not all individuals will have had a shift in their results and direct comparisons between historical and current results for testing conducted on different platforms is not recommended. Test Performed at: [facility] [address] [place] [address] Garth Parks MD Blood 04/19/2024 11:5 8 AM CDT 04/20/2024 5:29 AM CDT [facility] FULLER CHEMISTRY ORDERABLES Marina l Result [facility] [phone] [facility] [address] [facility] [place] [address] * COLONOSCOPY REPORT (01/07/2024 2:30 PM CDT) Narrative Procedure Note Clifford Ospina MD - 01/07/2024 2:30 PM CDT [facility] GI Patient Name: Pablo Saucedo Procedure Date: 01/07/2024 Date of : 1955 Admit Type: Outpatient Age: 68 Attending MD: lCifford Ospina MD, Procedure: Colonoscopy Indications: Follow-up of Crohn's disease of the small bowel Providers: Clifford Ospina MD Referring MD: Howard Munson Medicines: Propofol per Anesthesia Complications: No immediate complications. Procedure: Pre-Anesthesia Assessment: - Prior to the procedure, a History and Physical was performed, and patient medications and allergies were reviewed. The patient's tolerance of previous anesthesia was also reviewed. The risks and benefits of the procedure and the sedation options and risks were discussed with the patient. All questions were answered, and informed consent was obtained. Prior Anticoagulants: The patient has taken no anticoagulant or antiplatelet agents. ASA Grade Assessment: III - A patient with severe systemic disease. After reviewing the risks and benefits, the patient was deemed in satisfactory condition to undergo the procedure. After I obtained informed consent, the scope was passed under direct vision. Throughout the procedure, the patient's blood pressure, pulse, and oxygen saturations were monitored continuously. The Colonoscope was introduced through the anus and advanced to the ileocolonic anastomosis. The colonoscopy was performed without difficulty. The patient tolerated the procedure well. The quality of the bowel preparation was good. The terminal ileum and the rectum were photographed. Estimated Blood Loss: Estimated blood loss was minimal. Findings: There was evidence of a prior end-to-side ileo-colonic anastomosis in the ascending colon. This was patent and was characterized by inflammation and ulceration. The anastomosis was traversed. Diffuse inflammation characterized by congestion (edema), erythema and deep ulcerations was found in the terminal ileum. The inflammation was graded as Rutgeerts Score i4 (diffuse inflammation with large deep lesions). Normal mucosa was found in the entire colon. A few small-mouthed diverticula were found in the sigmoid colon. The retroflexed view of the distal rectum and anal verge was normal and showed no anal or rectal abnormalities. Impression: - Patent end-to-side ileo-colonic anastomosis, characterized by inflammation and ulceration. - Crohn's disease with ileitis. Inflammation was found. This was graded as Rutgeerts Score i4 (diffuse inflammation with large deep lesions and/or narrowing). - Normal mucosa in the entire examined colon. - Diverticulosis in the sigmoid colon. - The distal rectum and anal verge are normal on retroflexion view. - No specimens collected. Recommendation: - Patient has a contact number available for emergencies. The signs and symptoms of potential delayed complications were discussed with the patient. Return to normal activities tomorrow. Written discharge instructions were provided to the patient. - Resume previous diet. - Continue present medications. - Repeat colonoscopy in 1 year to evaluate the response to therapy. - Await pathology results. - Follow up in GI clinic to discuss treatment options. Clifford Ospina MD 01/07/2024 2:30:00 PM Number of Addenda: 0 Note Initiated On: 01/07/2024 2:07 PM Scope Withdrawal Time 0 hours 9 minutes 1 second Scope In: 2:13:23 PM Scope Out: 2:25:35 PM [address] [place], [place] Clifford Ospina MD GI PROCEDURE ORDERA BLES Final Result from Last 3 Months or Most Recently Relevant to Health Maintenance Insurance RX [employer] Medicare Part D [facility] MEDICARE HMO * Guarantor: OLD 2020 [facility] ADMIN R AND S (C) Account Type Relation to Patient Date of Phone Billing Address Corporate Other DEFAULT ADDRESS [address] [employer] * Guarantor: 2020 [facility] R AND S (C) Account Type Relation to Patient Date of Phone Billing Address Corporate Other DEFAULT ADDRESS [address] [employer] * Guarantor: [facility] R (C) Account Type Relation to Patient Date of Phone Billing Address Corporate Employer DEFAULT ADDRESS [address] [employer] [facility] [place] [address] [employer] * Guarantor: HOSPICE R AND S (C) Account Type Relation to Patient Date of Phone Billing Address Corporate [place] [address] GENERIC PAYOR Member Subscriber Plan / Payer (Ef fective 2024-Present) Name:Pablo Saucedo Relation to Subscriber:Self Name:Pablo Saucedo Payer ID:Not on file Group ID:Not on file Type:Hospice Address: [address] [place] [address] MEDICARE PART A AND B IN [place] [employer] Advance Directives For more information, please contact: [phone] Documents on File Type Date Recorded Patient Still Cleaner Expl anation Advance Directive POA 09/16/2022 4:13 PM Advance Directive POA Advance Directive Living Will 06/07/2021 2:45 PM Advance Directive Living Will Advance Directive POA 06/07/2021 2:44 PM A dvance Directive POA * Full Code (Latest Code Status on File) Date Activated Date Inactivated Comments 01/07/2024 1:23 PM 01/07/2024 4:59 PM * Full Code Date Activated Date Inactivated Comments 11/13/2022 7:15 PM 11/17/2022 4:19 PM * Full Code Date Activated Date Inactivated Comments 05/08/2021 7:23 AM 05/08/2021 1:35 PM Healthcare Agents on File Name Relationship Healthcare Agent Relationship Communication Bela Zuleta Significant Other Health Care Agent Care Teams Software Asset Manager Relationship Specialty Start Date End Date Howard Munson DO [address], [place] [address] PCP - General Family Practice 06/13/22
--- OUTSIDE RECORDS SUMMARY | 2025-06-20 18:57 | XMS_ITS | Encounter Summary ---
Author Organization [facility] Address [address] [place] [address] Care Team Providers Care Rf Design Engineer Name Role Phone Non-Staff, Physician Primary Care Provider Unava ilable Encounter Details Date Type Department Care Team (Latest Contact Info) Description 10/13/2003 Outpatient Historical [address] [phone] Sandy Banda MD [address] [place] [address], [address] ACUTE BRONCHITIS (Primary Dx) Social History Tobacco Use Types Packs/Day Years Used Date Smoking Tobacco: Never Assessed Sex and Gender Information Value Date Recorded Sex Assigned at Not on file 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
--- OUTSIDE RECORDS SUMMARY | 2025-06-20 18:57 | XMS_ITS | Encounter Summary ---
Author Organization [facility] Address [address] [place] [address] Care Team Providers Care Manager Msw Name Role Phone Non-Staff, Physician Primary Care Provider Unava ilable Encounter Details Date Type Department Care Team (Latest Contact Info) Description 11/21/2002 Outpatient Historical [facility] Medicine [place] [address], [place] [phone] Carlos Randall MD [address] [place] [address] [phone] Pure hypercholesterolem (Primary Dx) Social History Tobacco Use Types Packs/Day Years Used Date Smoking Tobacco: Never Assessed Sex and Gender Information Value Date Recorded Sex Assigned at Not on file 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
--- OUTSIDE RECORDS SUMMARY | 2025-06-20 18:57 | XMS_ITS | Encounter Summary ---
Author Organization [facility] Address [address] [place] [address] Care Team Providers Care Caterpillar Operator Name Role Phone Non-Staff, Physician Primary Care Provider Unava ilable Encounter Details Date Type Department Care Team (Late st Contact Info) Description 03/21/2003 Outpatient Historical [facility] [place] [facility] Medicine [place] [address] [phone] Carlos Randall MD [address] [place] [phone] Social History Tobacco Use Types Packs/Day Years Used Date Smoking Tobacco: Never Assessed Sex and Gender Information Value Date Recorded Sex Assigned at Not on file 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
--- OUTSIDE RECORDS SUMMARY | 2025-06-20 18:57 | XMS_ITS | Encounter Summary ---
Author Organization [facility] Address [address] [place] [address] Care Team Providers Care Turning Machine Operator Name Role Phone Non-Staff, Physician Primary Care Provider Unava ilable Encounter Details Date Type Department Care Team (Late st Contact Info) Description 11/21/2002 Outpatient Historical [facility] Medicine [place] [address] [phone] Carlos Randall MD [address] [place] [phone] Social History Tobacco Use Types Packs/Day Years Used Date Smoking Tobacco: Never Assessed Sex and Gender Information Value Date Recorded Sex Assigned at Not on file 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
--- OUTSIDE RECORDS SUMMARY | 2025-06-20 18:57 | XMS_ITS | Encounter Summary ---
Author Organization [facility] Address [address] [place] [address] Care Team Providers Care Online Retailer Name Role Phone Non-Staff, Physician Primary Care Provider Unava ilable Encounter Details Date Type Department Care Team (Latest Contact Info) Description 07/15/2002 Outpatient Historical [facility] Medicine [place] [address], [place] [phone] Carlos Randall MD [address] [place] [phone] PNEUMONIA, ORGANISM NOS (Primary Dx) Social History Tobacco Use Types Packs/Day Years Used Date Smoking Tobacco: Never Assessed Sex and Gender Information Value Date Recorded Sex Assigned at Not on file 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
--- OUTSIDE RECORDS SUMMARY | 2025-06-20 18:57 | XMS_ITS | Encounter Summary ---
Author Organization [facility] Address [address] [place] [address] Care Team Providers Care 3D Artist Name Role Phone Non-Staff, Physician Primary Care Provider Unava ilable Encounter Details Date Type Department Care Team (Latest Contact Info) Description 05/30/2003 Outpatient Historical [facility] Spec [place]urg [place] 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
--- OUTSIDE RECORDS SUMMARY | 2025-06-20 18:57 | XMS_ITS ---
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 Past Treatment and Therapy Plans ONCOLOGY TREATMENT Plan Name Start Date Discontinue Date Treatment Medications Discontinue Reason Plan Provider Cycles OP ONC LUNG (SC)_CIS PLATIN_E TOPOSIDE EVERY 21 DAYS 0 12/21/2020 CISplatin (PLATINOL) with mannitoletoposide (VEPESID / POWERHOUSE MECHANIC HELPER-16) IVPB Other Kolby Suárez MD 4 of 6 cycles started Lifetime Dose Tracking * Chemical Lifetime Dose Automatic Entry Manual Entr y cisplatin 328.344 mg/m2 (664 mg) 328.344 mg/m2 (664 mg) 0 mg/m2 (0 mg) Effective Dose 23.5 mSv 23.5 mSv 0 mSv Total DLP 1,662 DLP 1,662 DLP 0 DLP CTDIvol Max 32.5 mGy 32.5 mGy 0 mGy CTDIvol Min 32.5 mGy 32.5 mGy 0 mGy
--- OUTSIDE RECORDS SUMMARY | 2025-06-20 18:57 | XMS_ITS | Encounter Summary ---
Author Organization [facility] Address [address] [place] [address] Care Team Providers Care Macadam Raker Name Role Phone Non-Staff, Physician Primary Care Provider Unava ilable Encounter Details Date Type Department Care Team (Latest Contact Info) Description 08/29/2003 Outpatient Historical [facility] Medicine [place] [address], [place] [phone] Carlos Randall MD [address] [place] [phone] ACUTE BRONCHITIS (Primary Dx) Social History Tobacco Use Types Packs/Day Years Used Date Smoking Tobacco: Never Assessed Sex and Gender Information Value Date Recorded Sex Assigned at Not on file 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
--- OUTSIDE RECORDS SUMMARY | 2025-06-20 18:57 | XMS_ITS | Encounter Summary ---
Author Organization [facility] Address [address] [place] [address] Care Team Providers Care Hat Ironer Name Role Phone Non-Staff, Physician Primary Care Provider Unava ilable Reason for Referral * CT Scan (Routine) - Closed Specialty Diagnoses / Procedures Referred By Contac t Referred To Contact Radiology Diagnoses Mesenteric lymphadenopathy Procedures CT BIOPSY ABDOMEN CT GUIDED BIOPSY Kolby Suárez MD Phone: tel: fax: [facility] CT Scan [address] [place] [address] Phone: tel: fax: Referral ID Status Reason Start Date Expiration Date Visits Re quested Visits Authorized [id number] Closed 01/29/2021 01/09/2022 1 1 Encounter Details Date Type Department Care Team (Latest Contact Info) Description 02/04/2021 Ancillary Orders [facility] [address] [facility] [address] [place] [address] Kolby Suárez MD [address] [place] [address] Mesenteric lymphadenopathy Social History Tobacco Use Types Packs/Day Years Used Date Smoking Tobacco: Former Cigarettes 1 50 0 12/16/1969 - 12/17/2019 Comments:1 cigarette when ex tremely anxious per patient report Sex and Gender Information Value Date Recorded Sex Assigned at Not on file 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 No / Unsure 02/04/2021 9:52 AM CDT documented as of this encounter Plan of Treatment Not on file documented as of this encounter Results * CT BIOPSY ABDOMEN (02/04/2021 12:51 PM CDT) Anatomical Region Laterality Modality Abdomen Computed Tomogra phy 02/04/2021 12:5 1 PM CDT Impressions 02/04/2021 4:58 PM CDT IMPRESSION: Please see below. Exam: CT guided percutaneous biopsy of right lower quadrant mesenteric lymph node Date/Time of Exam: 02/04/2021 12:51 PM Reason For Exam: This is a 65 year old male with lung carcinoma. The patient also has a history of Crohn's disease. Recent PET scanning demonstrated an enlarged right lower quadrant lymph node. Differential considerations include reactive lymph nodes secondary to active Crohn's disease versus metastatic neoplastic disease.. Diagnosis: Mesenteric lymphadenopathy. Findings: The procedure and its risks and complications were explained to the patient and written consent was obtained. Monitored IV conscious sedation was performed. The patient was placed prone in the CT scanner and imaging was performed. The lower abdomen and pelvis. The skin was marked for percutaneous biopsy of the lymph node from a posterior approach. Following sterile preparation, drape, and adequate local anesthesia, CT guidance was used to direct a 17-gauge introducer needle to the abnormality. Through this an 18-gauge biopsy gun was advanced and at least 7 core biopsy samples were obtained and submitted to pathology in formalin. The needle was removed. Blood loss was negligible. Narrative Procedure Note Cheryl Moura MD - 02/04/2021 IMPRESSION: Please see below. Exam: CT guided percutaneous biopsy of right lower quadrant mesenteric lymph node Date/Time of Exam: 02/04/2021 12:51 PM Reason For Exam: This is a 65 year old male with lung carcinoma. The patient also has a history of Crohn's disease. Recent PET scanning demonstrated an enlarged right lower quadrant lymph node. Differential considerations include reactive lymph nodes secondary to active Crohn's disease versus metastatic neoplastic disease.. Diagnosis: Mesenteric lymphadenopathy. Findings: The procedure and its risks and complications were explained to the patient and written consent was obtained. Monitored IV conscious sedation was performed. The patient was placed prone in the CT scanner and imaging was performed. The lower abdomen and pelvis. The skin was marked for percutaneous biopsy of the lymph node from a posterior approach. Following sterile preparation, drape, and adequate local anesthesia, CT guidance was used to direct a 17-gauge introducer needle to the abnormality. Through this an 18-gauge biopsy gun was advanced and at least 7 core biopsy samples were obtained and submitted to pathology in formalin. The needle was removed. Blood loss was negligible. us Kolby Suárez MD CT ORDERABLES Final R esult documented in this encounter Visit Diagnoses Diagnosis Mesenteric lymphadenopathy Enlargement of lymph nodes Mesenteric lymphadenopathy Enlargement of lymph nodes documented in this encounter Care Teams Hat Ironer Relationship Specialty Start Date End Date Non-Staff, Physician NO ADDRESS ON FILE PCP - General 01/14/21 documented as of this encounter
--- OUTSIDE RECORDS SUMMARY | 2025-06-20 18:57 | XMS_ITS | Encounter Summary ---
Author Organization [facility] Address [address] [place] [address] Care Team Providers Care Healthcare Technician Name Role Phone Non-Staff, Physician Primary Care Provider Unava ilable Encounter Details Date Type Department Care Team (Latest Contact Info) Description 11/15/2002 Outpatient Historical [facility] Medicine [address], [place] [address] Carlos Randall MD [address] [place] [phone] ACUTE BRONCHITIS (Primary Dx) Social History Tobacco Use Types Packs/Day Years Used Date Smoking Tobacco: Never Assessed Sex and Gender Information Value Date Recorded Sex Assigned at Not on file 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
--- OUTSIDE RECORDS SUMMARY | 2025-06-20 18:57 | XMS_ITS | Encounter Summary ---
Author Organization [facility] Address [address] [place] [address] Care Team Providers Care Sample Supervisor Name Role Phone Non-Staff, Physician Primary Care Provider Unava ilable Encounter Details Date Type Department Care Team (Latest Contact Info) Description 03/21/2003 Outpatient Historical [facility] Medicine [place] [address], [place] [phone] Carlos Randall MD [address] [place] [phone] HYPERLIPIDEMIA NEC/NOS (Primary Dx); DIARRHEA NOS; OTHER MALAISE AND FATIGUE; SCREENING MAL NEOP-PROSTATE Social History Tobacco Use Types Packs/Day Years Used Date Smoking Tobacco: Never Assessed Sex and Gender Information Value Date Recorded Sex Assigned at Not on file 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
--- OUTSIDE RECORDS SUMMARY | 2025-06-20 18:57 | XMS_ITS | Encounter Summary ---
Author Organization [facility] Address [address] [place] [address] Care Team Providers Care Job Placement Counselor Name Role Phone Non-Staff, Physician Primary Care Provider Unava ilable Encounter Details Date Type Department Care Team (Latest Contact Info) Description 07/10/2003 Outpatient Historical [facility] Medicine [address] [phone] Carlos Randall MD [address] [place] [phone] DIARRHEA NOS (Primary Dx); HYPERLIPIDEMIA NEC/NOS Social History Tobacco Use Types Packs/Day Years Used Date Smoking Tobacco: Never Assessed Sex and Gender Information Value Date Recorded Sex Assigned at Not on file 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
--- OUTSIDE RECORDS SUMMARY | 2025-06-20 18:57 | XMS_ITS | Encounter Summary ---
Author Organization [facility] Address [address] [place] [address] Care Team Providers Care Program Attendant Name Role Phone Non-Staff, Physician Primary Care Provider Unava ilable Reason for Referral * CT Scan (Routine) - Closed Specialty Diagnoses / Procedures Referred By Contac t Referred To Contact Diagnoses Malignant neoplasm of upper lobe, right bronchus or lung (CMS/HCC) Procedures CT GUIDED RAD THERAPY FIELD Clifford Lira MD [address] [place] [address] Phone: tel: fax: Referral ID Status Reason Start Date Expiration Date Visits Re quested Visits Authorized [id number] Closed 07/30/2020 08/30/2021 1 1 Encounter Details Date Type Department Care Team (Late st Contact Info) Description 07/30/2020 Ancillary Orders [facility] [address] [address] Clifford Lira MD [address] [place] [address] Malignant neoplasm of upper lobe, right bronchus or lung (CMS/HCC) Social History Tobacco Use Types Packs/Day Years Used Date Smoking Tobacco: Former Cigarettes 1 50 0 12/16/1969 - 12/17/2019 Sex and Gender Information Value Date Recorded Sex Assigned at Not on file Legal 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 No / Unsure 08/02/2020 10:23 AM CDT documented as of this encounter Plan of Treatment Not on file documented as of this encounter Results * CT GUIDED RAD THERAPY FIELD (07/30/2020 2:07 PM CDT) Narrative 07/30/2020 2:07 PM CDT Order information only. Exam was auto-finalized. Clifford Lira MD CT ORDERABLES F inal Result documented in this encounter Visit Diagnoses Diagnosis Small cell lung cancer (CMS/HCC)- Primary Malignant neoplasm of bronchus and lung, unspecified site Malignant neoplasm of upper lobe, right bronchus or lung (CMS/HCC) Malignant neoplasm of upper lobe, right bronchus or lung (CMS/HCC) documented in this encounter Care Teams Program Attendant Relationship Specialty Start Date End Date Non-Staff, Physician NO ADDRESS ON FILE PCP - General 01/14/21 documented as of this encounter
--- OUTSIDE RECORDS SUMMARY | 2025-06-20 18:57 | XMS_ITS | Clinical Summary ---
Author Organization [facility] Address [address] [place] [address] Care Team Providers Care Block Saw Operator Name Role Phone Non-Staff, Physician Primary Care Provider Unava ilable Allergies No known active allergies Medications ALPRAZolam (XANAX) 0.5 mg tablet Take 0.5 mg by mouth every 6 hours as needed. Active metoprolol tartrate (LOPRESSOR) 25 mg tablet Take 25 mg by mouth 2 times daily. Active sildenafiL (VIAGRA) 50 mg tablet Take 50 mg by mouth 1 time daily as needed. Active prochlorperazin e maleate (COMPAZINE) 10 mg tablet Take 1 Tablet (10 mg) by mouth every 6 hours as needed for Nausea/Emesis. 45 Tablet 1 0 Active methylPREDNISol one (MEDROL DOSPACK) 4 mg Tablets, Dose Pack Use as directed 21 Tablet 0 Active allopurinoL (ZYLOPRIM) 100 mg tabletIndicatio ns:Small cell lung cancer (CMS/HCC) Take 1 Tablet (100 mg) by mouth 2 times daily. 60 Tablet 0 Active esomeprazole (NexIUM) 20 mg Capsule, Delayed Release(E.C.) Take 1 Capsule (20 mg) by mouth daily before breakfast. 60 Capsule 4 0 Active naloxone (NARCAN) 4 mg/spray [place], Non-Aerosol EMERGENCY USE ONLY: Administer 1 spray (4 mg) in one nostril one time. May repeat in alternating nostrils every 2-3 min until responsive or EMS arrives. 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 Small cell lung cancer 03/23/2020 Cancer Staging:Clinical:Stage IIIB(cT4, cN2, cM0) - Signed by Clifford Lira MD on 04/25/2020 Mass of right lung 03/16/2020 Immunizations Immunization Administration Dates Next Due (PREVNAR 13)(6 WKS UP) PNEUM OCOCCAL CONJUGATE (PCV13) 0.5 ML, IM 03/19/2016 INFLUENZA VACCINE QUADRIVALENT 6 MOS UP IM 10/25 INFLUENZA VACCINE QUADRIVALENT 6 MOS UP PF IM Pneumococcal Polysaccharide Vacc 23-usha IM SCHIP 11/09/2019 Family History Medical History Relation Name Comments Breast Cancer Mother Relation Name Status Comments Mother Social History Tobacco Use Types Packs/Day Years Used Date Smoking Tobacco: Former Cigarettes 1 50 0 12/16/1969 - 12/17/2019 Comments:1 cigarette when ex tremely anxious per patient report Sex and Gender Information Value Date Recorded Sex Assigned at Not on file 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 Gender Identity Not on file Sexual Orientation Not on file Last Filed Vital Signs Vital Sign Reading Time Taken Comments Blood Pressure 118/72 04/11/2021 10:10 AM CDT Pulse 88 04/11/2021 10:10 AM CDT Temperature 36.4 C (97.6 F) 03/12/2021 10:53 AM CDT Respiratory Rate 20 03/12/2021 10:53 AM CDT Oxygen Saturation 97% 04/11/2021 10:10 AM CDT Inhaled Oxygen Concentration - - Weight 75 kg (165 lb 6.4 oz) 04/11/2021 10:10 AM CDT Height 172.7 cm (5' 8 ) 04/11/2021 10:10 AM CDT Body Mass Index 25.15 04/11/2021 10:10 AM CDT Plan of Treatment Health Maintenance Due Date Last Done Comments FIT-DNA Q 3 years 2000 FIT/FOBT Q 1 year 2000 Flex Sig/CT Colonography Q 5 years 2000 ZOSTER VACCINE (1 of 2) 2005 PNEUMOCOCCAL VACCINE 50+ YEA RS (3 of 3 - PCV20 or PCV21) 11/09/2024 11/09/2019, 03/19/2016 INFLUENZA VACCINE (#1) 2025 0, 2019, 10/25/2019 COLORECTAL SCREENING 12/25/2029 12/26/2019, 06/07/20 03 Colorectal Cancer Screening 12/25/2029 RSV VACCINE (60+ or ) (1 - 1-dose 75+ series) 2030 DTAP/TDAP/TD VACCINES (2 - T d or Tdap) 03/01/2031 03/01/2021 Insurance MEDICARE PART A AND B [facility] Advance Directives For more information, please contact: [phone] * Full Code (Latest Code Status on File) Date Activated Date Inactivated Comments 03/21/2020 8:40 AM 03/21/2020 3:11 PM Care Teams Block Saw Operator Relationship Specialty Start Date End Date Non-Staff, Physician NO ADDRESS ON FILE PCP - General 01/14/21
--- OUTSIDE RECORDS SUMMARY | 2025-06-20 18:57 | XMS_ITS | Encounter Summary ---
Author Organization [facility] Address [address] [place] [address] Care Team Providers Care Labor Relations Analyst Name Role Phone Non-Staff, Physician Primary Care Provider Unava ilable Encounter Details Date Type Department Care Team (Late st Contact Info) Description 08/23/2003 Outpatient Historical [facility] Imaging Services[facility] [address] [place] [address] Social History Tobacco Use Types Packs/Day Years Used Date Smoking Tobacco: Never Assessed Sex and Gender Information Value Date Recorded Sex Assigned at Not on file 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
--- OUTSIDE RECORDS SUMMARY | 2025-06-20 18:57 | XMS_ITS | Encounter Summary ---
Author Organization [facility] Address [address] [place] [address] Care Team Providers Care Beef Specialist Name Role Phone Non-Staff, Physician Primary Care Provider Unava ilable Encounter Details Date Type Department Care Team (Latest Contact Info) Description 02/05/2001 Outpatient Historical [facility] Medicine [address] [phone] Carlos Randall MD [address] [place] [phone] Allergy, unspecified not elsewhere classified (Primary Dx) Social History Tobacco Use Types Packs/Day Years Used Date Smoking Tobacco: Never Assessed Sex and Gender Information Value Date Recorded Sex Assigned at Not on file 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
--- OUTSIDE RECORDS SUMMARY | 2025-06-20 18:57 | XMS_ITS | Encounter Summary ---
Author Organization [facility] Address [address] [place] [address] Care Team Providers Care Negotiations Director Name Role Phone Non-Staff, Physician Primary Care Provider Unava ilable Encounter Details Date Type Department Care Team (Latest Contact Info) Description 06/07/2003 Outpatient Historical [facility] Endoscopy [place] 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
--- OUTSIDE RECORDS SUMMARY | 2025-06-20 18:57 | XMS_ITS | Encounter Summary ---
Author Organization [facility] Address [address] [place] [address] Care Team Providers Care Environmental Maintenance Worker Name Role Phone Non-Staff, Physician Primary Care Provider Unava ilable Encounter Details Date Type Department Care Team (Latest Contact Info) Description 07/11/2002 Outpatient Historical [facility] Medicine [place] [address], [place] [phone] Carlos Randall MD [address] [place] [phone] PNEUMONIA, ORGANISM NOS (Primary Dx) Social History Tobacco Use Types Packs/Day Years Used Date Smoking Tobacco: Never Assessed Sex and Gender Information Value Date Recorded Sex Assigned at Not on file 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
--- OUTSIDE RECORDS SUMMARY | 2025-06-20 18:57 | XMS_ITS ---
Author Organization [facility] Address [address] [place] [address] Care Team Providers Care Propellant Charge Loader Name Role Phone Howard Munson Primary Care Provider [phone] Active Problems Problem Noted Date Diagnosed Date [...] dose. 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 Past Treatment and Therapy Plans No past plan information found. 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
--- OUTSIDE RECORDS SUMMARY | 2025-06-20 18:57 | XMS_ITS | Encounter Summary ---
Author Organization [facility] Address [address] [place] [address] Care Team Providers Care Mop Maker Name Role Phone Non-Staff, Physician Primary Care Provider Unava ilable Reason for Referral * CT Scan (Routine) - Closed Specialty Diagnoses / Procedures Referred By Contac t Referred To Contact Diagnoses Malignant neoplasm of upper lobe, right bronchus or lung (CMS/HCC) Procedures CT GUIDED RAD THERAPY FIELD Clifford Lira MD [address] [place] [address] Phone: tel: fax: Referral ID Status Reason Start Date Expiration Date Visits Re quested Visits Authorized [id number] Closed 04/11/2020 05/12/2021 1 1 Encounter Details Date Type Department Care Team (Late st Contact Info) Description 04/11/2020 Ancillary Orders [facility] Radiation [facility] [address] [phone] Clifford Lira MD [address] [place] [address] Malignant neoplasm of upper lobe, right bronchus or lung (CMS/HCC) Social History Tobacco Use Types Packs/Day Years Used Date Smoking Tobacco: Former Cigarettes 1 50 0 12/16/1969 - 12/17/2019 Sex and Gender Information Value Date Recorded Sex Assigned at Not on file 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 No / Unsure 04/13/2020 2:34 PM CDT documented as of this encounter Plan of Treatment Not on file documented as of this encounter Results * CT GUIDED RAD THERAPY FIELD (04/12/2020 12:22 PM CDT) Narrative 04/12/2020 12:22 PM CDT Order information only. Exam was auto-finalized. Clifford Lira MD CT ORDERABLES F inal Result documented in this encounter Visit Diagnoses Diagnosis Malignant neoplasm of upper lobe, right bronchus or lung (CMS/HCC) Malignant neoplasm of upper lobe, right bronchus or lung (CMS/HCC) documented in this encounter Care Teams Mop Maker Relationship Specialty Start Date End Date Non-Staff, Physician NO ADDRESS ON FILE PCP - General 01/14/21 documented as of this encounter
--- OUTSIDE RECORDS SUMMARY | 2025-06-20 18:57 | XMS_ITS | Encounter Summary ---
Author Organization [facility] Address [address] [place] [address] Care Team Providers Care Stone Lathe Operator Name Role Phone Non-Staff, Physician Primary Care Provider Unava ilable Encounter Details Date Type Department Care Team (Latest Contact Info) Description 05/01/2003 Outpatient Historical [facility] Operating Room [address] [place] [address] Juancarlos Stovall MD [address] [address] CHOLELITH W CHOLECYS NEC (Primary Dx) Social History Tobacco Use Types Packs/Day Years Used Date Smoking Tobacco: Never Assessed Sex and Gender Information Value Date Recorded Sex Assigned at Not on file 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
--- OUTSIDE RECORDS SUMMARY | 2025-06-20 18:57 | XMS_ITS | Encounter Summary ---
Author Organization [facility] Address [address] [place] [address] Care Team Providers Care Insurance Defense Attorney Name Role Phone Non-Staff, Physician Primary Care Provider Unava ilable Encounter Details Date Type Department Care Team (Latest Contact Info) Description 03/14/2005 Outpatient Historical [facility] Medicine [address] [phone] Josseline Valenzuela MD [address] [place] [phone] OTITIS MEDIA NOS (Primary Dx); IMPACTED CERUMEN Social History Tobacco Use Types Packs/Day Years Used Date Smoking Tobacco: Never Assessed Sex and Gender Information Value Date Recorded Sex Assigned at Not on file 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
--- OUTSIDE RECORDS SUMMARY | 2025-06-20 18:57 | XMS_ITS | Encounter Summary ---
Author Organization [facility] Address [address] [place] [address] Care Team Providers Care Lvn Name Role Phone Non-Staff, Physician Primary Care Provider Unava ilable Encounter Details Date Type Department Care Team (Late st Contact Info) Description 08/26/2003 Emergency [facility] Emergency Department [address] [place] [phone] Lit Marroquin MD NO ADDRESS ON FILE ACUTE BRONCHITIS (Primary Dx) Social History Tobacco Use Types Packs/Day Years Used Date Smoking Tobacco: Never Assessed Sex and Gender Information Value Date Recorded Sex Assigned at Not on file 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
--- OUTSIDE RECORDS SUMMARY | 2025-06-20 18:57 | XMS_ITS | Encounter Summary ---
Author Organization [facility] Address [address] [place] [address] Care Team Providers Care Sustainability Coordinator Name Role Phone Non-Staff, Physician Primary Care Provider Unava ilable Encounter Details Date Type Department Care Team (Latest Contact Info) Description 04/04/2003 Outpatient Historical [facility] Imaging Services [address] [place] [phone] Carlos Randall MD [address] [place] [phone] CHOLELITHIASIS NOS (Primary Dx) Social History Tobacco Use Types Packs/Day Years Used Date Smoking Tobacco: Never Assessed Sex and Gender Information Value Date Recorded Sex Assigned at Not on file 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
--- OUTSIDE RECORDS SUMMARY | 2025-06-20 18:57 | XMS_ITS | Encounter Summary ---
Author Organization [facility] Address [address] [place] [address] Care Team Providers Care Water Quality Assistant Name Role Phone Non-Staff, Physician Primary Care Provider Unava ilable Encounter Details Date Type Department Care Team (Latest Contact Info) Description 08/22/2003 Outpatient Historical [facility] Medicine [place] [address], [place] [phone] Carlos Randall MD [address] [place] [phone] PNEUMONIA, ORGANISM NOS (Primary Dx) Social History Tobacco Use Types Packs/Day Years Used Date Smoking Tobacco: Never Assessed Sex and Gender Information Value Date Recorded Sex Assigned at Not on file 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
--- OUTSIDE RECORDS SUMMARY | 2025-06-20 18:57 | XMS_ITS | Encounter Summary ---
Author Organization [facility] Address [address] [place] [address] Care Team Providers Care Control Panel Operator Crude Unit Name Role Phone Non-Staff, Physician Primary Care Provider Unava ilable Encounter Details Date Type Department Care Team (Latest Contact Info) Description 04/18/2003 Outpatient Historical [facility] Gen Spec Surg [place] 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
--- OUTSIDE RECORDS SUMMARY | 2025-06-20 18:57 | XMS_ITS | Encounter Summary ---
Author Organization [facility] Address [address] [place] [address] Care Team Providers Care Regulatory Coordinator Name Role Phone Non-Staff, Physician Primary Care Provider Unava ilable Encounter Details Date Type Department Care Team (Latest Contact Info) Description 06/07/2003 Outpatient [facility] Gastroenterology- [address] [place] [address] Goldy Baumann MD [address] [place] [address] Benign martha lg bowel (Primary Dx); GI SYSTEM SYMPTOMS OTHER; DIARRHEA NOS Social History Tobacco Use Types Packs/Day Years Used Date Smoking Tobacco: Never Assessed Sex and Gender Information Value Date Recorded Sex Assigned at Not on file 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
--- OUTSIDE RECORDS SUMMARY | 2025-06-20 18:57 | XMS_ITS | Encounter Summary ---
Author Organization [facility] Address [address] [place] [address] Care Team Providers Care Loom Setter Name Role Phone Non-Staff, Physician Primary Care Provider Unava ilable Reason for Referral * Radiology Services (Routine) - Closed Specialty Diagnoses / Procedures Referred By Contac t Referred To Contact Radiology Diagnoses Pleural effusion Procedures US CHEST US ASPIRATION PLEURA RIGHT Kolby Suárez MD Phone: tel: fax: [facility] Ultrasound [address] [place] [address] Phone: tel: fax: Referral ID Status Reason Start Date Expiration Date Visits Re quested Visits Authorized [id number] Closed 02/21/2020 03/29/2021 1 1 Encounter Details Date Type Department Care Team (Late st Contact Info) Description 03/30/2020 Ancillary Orders [facility] [address] [facility] [place] [address] [place] [address] Kolby Suárez MD [address] [place] [address] Pleural effusion Social History Tobacco Use Types Packs/Day Years Used Date Smoking Tobacco: Former Cigarettes 1 50 0 12/16/1969 - 12/17/2019 Sex and Gender Information Value Date Recorded Sex Assigned at Not on file 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 No / Unsure 04/02/2020 7:34 AM CDT documented as of this encounter Plan of Treatment Not on file documented as of this encounter Results * US CHEST (03/30/2020 3:12 PM CDT) Anatomical Region Laterality Modality Chest Ultrasound 03/30/2020 3:12 PM CDT Narrative 04/02/2020 10:45 AM CDT Exam: US CHEST Date/Time of Exam: 03/30/2020 3:12 PM Reason For Exam: See Diagnosis. Diagnosis: Pleural effusion. Findings: Multiplanar grayscale imaging was performed of the chest prior to possible thoracentesis. No pleural effusion is identified. No thoracentesis was subsequently performed. Procedure Note El Lindquist MD - 04/02/2020 Exam: US CHEST Date/Time of Exam: 03/30/2020 3:12 PM Reason For Exam: See Diagnosis. Diagnosis: Pleural effusion. Findings: Multiplanar grayscale imaging was performed of the chest prior to possible thoracentesis. No pleural effusion is identified. No thoracentesis was subsequently performed. Kolby Suárez MD ORDERABLES Final R esult documented in this encounter Visit Diagnoses Diagnosis Pleural effusion Unspecified pleural effusion Pleural effusion Unspecified pleural effusion documented in this encounter Care Teams Loom Setter Relationship Specialty Start Date End Date Non-Staff, Physician NO ADDRESS ON FILE PCP - General 01/14/21 documented as of this encounter
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
[2025-06-20 19:54] LABS: Hematocrit 41.7 % (37-53); Hemoglobin 14.00 g/dL (11.27-16.99); Mean Corpuscular HGB Conc 33.6 g/dL (30-55); Mean Corpuscular Hemoglobin 30.6 pg (27-33); Mean Corpuscular Volume 91.2 fl (82-101); Nucleated Red Blood Cells % 0 %; Platelet Count 169 10^3/cmm (157-399); Red Blood Count 4.57 10^6/uL (3.85-5.65); White Blood Count 7.59 10^3/uL (3.29-11.43)
[2025-06-20 20:16] LABS: INR 0.88 (0.8-1.2); Prothrombin Time 12.60 SECONDS (12.1-14.9)
[2025-06-20 20:28] LABS: Alanine Aminotransferase 15 U/L (0-41); Albumin Level 3.4 g/dL (3.5-5.2); Alkaline Phosphatase 97 U/L (40-130); Anion Gap 10.1 (5-19); Aspartate Amino Transferase 13 U/L (0-40); Blood Urea Nitrogen 11 mg/dL (8-23); Calcium 8.5 mg/dL (8.5-10.5); Carbon Dioxide 32 mmol/L (22-29); Chloride 100 mmol/L (98-107); Creatinine Clr Calc Pharmacy 66.8414; Globulin 2.8 g/dL (1.3-4.6); Glucose 117 mg/dL (65-115); Osmolality Calculated 288 mOsm/kg (285-295); Potassium 3.1 mmol/L (3.5-5.1); Sodium 139 mmol/L (136-145); Thyroid Stimulating Hormone 1.12 uIU/mL (0.27-4.20); Total Protein 6.2 g/dL (6.6-8.7)
[2025-06-20 20:31] LABS: Acetaminophen < 5.0 ug/mL (10-30); Alcohol Level < 10 mg/dL (0-10); Salicylate < 0.3 mg/dL (3-10)
[2025-06-20 23:02] LABS: Glucose Urine UA Negative (Normal); Nitrate Urine Negative (Negative); Specific Gravity, Urine 1.020 (1.005-1.030)
[2025-06-20 23:07] LABS: Add Urine Microscopic? YES
[2025-06-20 23:10] LABS: PCP Screen Urine Negative (Negative)
[2025-06-21] MEDS: cefTRIAXone 1,000 mg SDV 1000 MG IVP (00:45)
[2025-06-21 06:08] VITALS: BP 130/78; PULSE 88; RESP 16; O2SAT 94
[2025-06-21 06:54] LABS: Alanine Aminotransferase 13 U/L (0-41); Albumin Level 3.0 g/dL (3.5-5.2); Alkaline Phosphatase 81 U/L (40-130); Anion Gap 11.4 (5-19); Aspartate Amino Transferase 14 U/L (0-40); Blood Urea Nitrogen 10 mg/dL (8-23); Calcium 8.3 mg/dL (8.5-10.5); Carbon Dioxide 30 mmol/L (22-29); Chloride 103 mmol/L (98-107); Creatinine Clr Calc Pharmacy 83.5517; Globulin 2.7 g/dL (1.3-4.6); Glucose 97 mg/dL (65-115); Osmolality Calculated 291 mOsm/kg (285-295); Potassium 3.4 mmol/L (3.5-5.1); Sodium 141 mmol/L (136-145); Total Protein 5.7 g/dL (6.6-8.7)
[2025-06-21 08:25] LABS: Anion Gap 12.5 (5-19); Blood Urea Nitrogen 10 mg/dL (8-23); Calcium 8.3 mg/dL (8.5-10.5); Carbon Dioxide 30 mmol/L (22-29); Chloride 104 mmol/L (98-107); Creatinine Clr Calc Pharmacy 83.5517; Glucose 96 mg/dL (65-115); Osmolality Calculated 295 mOsm/kg (285-295); Potassium 3.5 mmol/L (3.5-5.1); Sodium 143 mmol/L (136-145)
--- NOTE | 2025-06-21 11:20 | PC.NURSE ---
attempted to call report to [facility]. spoke with x2 nurses; attempted to give report, [facility] nurse states we need to speak with DON/Hand Brush Filler first d/t not accepting until sent to psych facility. this nurse explained pt was evaluated by [facility] psychiatrist, Samira, and is cleared to go back to [facility]. Patricia Renee spoke with [facility] admin and states they will call back with decision.
--- NOTE | 2025-06-21 11:39 | PC.NURSE ---
This nurse spoke with [facility] admissions store administrator after the ER nurse was unsuccessful giving report. I explained that Dr. Williamson and Dr. Rosas had determined that pt was safe to return to [facility] where he currently resides. Nereida the Admissions Admin got permission to accept the patient back to [facility]. ER nurse attempting to call report now.
--- NOTE | 2025-06-21 11:46 | PC.NURSE ---
REPORT CALLED TO PRABHAKAR AT [facility], STATES SENDING TRANSPORT AT THIS TIME
--- NOTE | 2025-06-21 15:17 | W.PM.PSYCONS ---
Providers/Reason for Consult Consulting Physican/Specialty*: Samira/Psychiatry Reason for Consult*: psychosis, agitation. Primary Care Provider: Howard Munson DO Psych Consult HPI History of Present Illness Pablo Saucedo is a 69 year old male currently in hospice who had appeared to be having increased agitation while in the snf. The patient had been residing at [facility] and had recently been placed on Zyprexa 5 mg but continued to wander the halls at night appearing more confused and appearing to be responding to internal stimuli. The patient was evaluated briefly here today by this personal lines underwriter in the emergency department. He was a poor historian and appeared confused. He had stated that he had brought his car here and stated that he was planning on going back home. He reports that he did not have any problems and reported that he was taking his medications as prescribed. He had reported no prior history of treatment for anxiety or depression. He was unable to recall any details regarding his care. Psychiatric history: Unknown Substance abuse history: None currently Medical history: History of Alzheimer's disease, history of brain aneurysm, history of lumbar fusion Medications: Xanax 1 mg at bedtime as needed, amlodipine, bumetanide E, Wellbutrin XL 300 mg in the morning, vitamin D3, colestipol, ferrous sulfate, galantamine, loperamide, hydrocodone, meloxicam, memantine, metoprolol, tamsulosin, trazodone, Zyprexa 5 mg at night Meds Home Medications and Allergies Home Medications ?Medication ?Instructions ?Recorded ?Confirmed ?Last Taken ?Type amlodipine 5 mg tablet 5 mg PO DAILY 03/25/22 06/21/25 10/29/22 07:00 History alprazolam 1 mg tablet 1 mg PO BEDTIME PRN anxiety 04/27/22 06/21/25 04/26/22 History bupropion HCl 300 mg 24 hr tablet, 300 mg PO QAM 04/27/22 06/21/25 04/27/22 History extended release hydrocodone 10 mg-acetaminophen 1 - 2 tab PO TID PRN Pain 04/27/22 06/21/25 04/27/22 History 325 mg tablet galantamine 8 mg tablet 8 mg PO BID #180 tabs 05/17/24 06/21/25 Unknown Rx memantine 10 mg tablet 10 mg PO BID 90 days #180 tabs 05/17/24 06/21/25 Unknown Rx cholecalciferol (vitamin D3) 50 50 mcg PO DAILY 11/20/24 06/21/25 Unknown History mcg (2,000 unit) tablet (Vitamin D3) colestipol 1 gram tablet 1 g PO BID 11/20/24 06/21/25 Unknown History ferrous sulfate 325 mg (65 mg 325 mg PO DAILY 11/20/24 06/21/25 Unknown History iron) tablet (Iron (ferrous sulfate)) meloxicam 15 mg tablet 15 mg PO DAILY 11/20/24 06/21/25 Unknown History trazodone 100 mg tablet 100 mg PO BEDTIME 11/20/24 06/21/25 Unknown History fluticasone 250 mcg-salmeterol 50 1 inh inhalation BID 11/21/24 06/21/25 Unknown History mcg/dose blistr powdr for inhalation metoprolol tartrate 100 mg tablet 50 mg (1/2 x 100 mg) PO BID #30 11/24/24 06/21/25 Unknown Rx tabs bumetanide 2 mg tablet 2 mg PO DAILY PRN Edema 03/25/25 06/21/25 Unknown History loperamide 2 mg capsule 2 mg PO Q12H 03/25/25 06/21/25 Unknown History tamsulosin 0.4 mg capsule 0.4 mg PO BID 03/25/25 06/21/25 Unknown History risperidone 0.5 mg tablet 0.5 mg PO .qhs #30 tabs 06/21/25 Unknown Rx (Risperdal) Allergies Allergy/AdvReac Type Severity Reaction Status Date / Time No Known Allergies Allergy Verified 05/17/24 09:34 PFS NPU PFSH: Medical History (Updated 06/21/25 @ 15:28 by Vickey Hogan MD) Tear of ulnar collateral ligament of left elbow Effusion of elbow joint, left Biceps tendinitis on left Cellulitis of left elbow Alzheimer disease Mild cognitive impairment with memory loss Neurologic gait disorder History of lung cancer History of Crohn's disease Paresthesia of skin Surgical History (Updated 03/29/25 @ 00:00 by JAYLEN Christensen) History of colon resection x2 History of back surgery 2012 Family History Brother CAD (coronary artery disease) Social History Smoking and tobacco/nicotine status: current every day tobacco/nicotine user (4-5 a day) Alcohol intake: never Substance/Drug Use: never Mental Status Exam MSE Comments: The patient was pleasant and cooperative while sitting in her's bed with fair hygiene. He was alert and oriented to person only and did not know his whereabouts. He did not know year, day of the week, or date but knew the month was June. His speech was halting at times with diminished spontaneous speech and normal volume. His mood was described as fine. His affect was somewhat irritable. His thought process was vague and concrete. His thought content revealed no suicidal or homicidal ideation. There was evidence of some bizarre thinking. He did not appear to be responding to internal stimuli. His attention span was poor. His insight is impaired. His judgment is limited. His impulse control appeared limited as well. His recent and remote memory were impaired. Registration of 3 words was 1 out of 3. Immediate recall after 5 minutes was zero. Vitals/I&O/Wt Last Vital Signs Temp 97.6 F 06/20/25 18:32 Pulse 88 06/21/25 06:08 Resp 16 06/21/25 06:08 BP 130/78 06/21/25 06:08 Pulse Ox 94 06/21/25 06:08 O2 Del Method Room Air 06/21/25 06:08 Weight last 48 hrs Weight 70.307 kg Data NPU 06/20/25 19:42 06/21/25 07:58 A&P Assessment and plan 1. Alzheimer's dementia with agitation: 2. Psychosis: Plan: 69-year-old male with Alzheimer's disease presenting with increased agitation and hospice with 5 mg of Zyprexa at night. #1. Recommend continuing medications but discontinuing Zyprexa and beginning Risperdal at 0.5 mg at night with an increase to 1 mg at night after 2 to 3 days if no improvement is noted. PDMP PDMP Reviewed: Not Reviewed Attestations NPU Medical Necessity Statement*: inpatient psychiatric stay not indicated at this time. Coding Level of Care Code Acute Code for [facility] Fwd Diagnoses Alzheimer's dementia with agitation G30.9; F02.811 Psychosis F29
== END 2025-06-21 12:16 | disposition home or self-care (01) ==
PROVIDERS: Family Medicine; Physician Assistant; Emergency Provider Emergency Medicine; PCP Family Medicine
DX: R82.81 Pyuria (principal); F22 Delusional disorders; R31.21 Asymptomatic microscopic hematuria; Z72.0 Tobacco use; Z85.118 Personal history of other malignant neoplasm of bronchus and lung; F03.90 Unspecified dementia, unspecified severity, without behavioral disturbance, psychotic disturbance, mood disturbance, and anxiety
CPT/HCPCS: 36415; 80048; 80053; 80306; 80307; 81001; 84443; 85025; 85610; 87086; 96372; 96374; 99284; J0696; J3486; J9999